=== PATIENT | male | born 1935 | race Caucasian/White ===

== ENCOUNTER 2018-11-14 09:15 | Inpatient (IN) | payer MEDICARE, OTHER, SELFPAY ==
[2017-01-12 13:56] VITALS: BMI 46.7
[2018-11-14] VITALS (12 sets, daily range): BP systolic 116–151; BP diastolic 71–105; PULSE 60–108; RESP 12–22; TEMP 36.6–37.1; O2SAT 89–100; BMI 48.8; BMI 45.8
--- NOTE | 2018-11-14 09:34 | EKG12_ITS ---
Test Reason : COUGH Blood Pressure : / mmHG Vent. Rate : 062 BPM Atrial Rate : 234 BPM P-R Int : 000 ms QRS Dur : 076 ms QT Int : 414 ms P-R-T Axes : 000 -44 -09 degrees QTc Int : 420 ms Atrial fibrillation Left axis deviation Low voltage QRS Inferior infarct , age undetermined Possible Anterolateral infarct , age undetermined Abnormal ECG Confirmed by CHING PATRICIO ([id number]), makeup editor JOVANNY PAN ([id number]) on 11/19/2018 1:30:26 PM Referred By: Mahsa Vines Confirmed By:CHING PATRICIO
--- NOTE | 2018-11-14 09:34 | RAD_ITS ---
STUDY: X-RAY CHEST REASON FOR EXAM: Male, 82 years old. History of hemoptysis. Lightheadedness. TECHNIQUE: Single AP portable view of the chest. COMPARISON: Comparison is made with prior study dated January 15, 2017. FINDINGS: EKG electrodes are seen. Elevation of the right hemidiaphragm. Mild increased markings at the lung bases suggestive of bibasilar atelectasis. There is no demonstrated pleural abnormality. There is moderate cardiac enlargement. Normal mediastinum and shaan. Normal visualized pulmonary arteries. There is atherosclerotic calcification of the aortic arch with tortuosity. There are diffuse degenerative changes of the visualized thoracic spine. Normal visualized ribs, clavicles, and shoulders. There is no demonstrated abnormality of the visualized soft tissue structures of the upper abdomen. RAD/Chest 1 View (Portable) IMPRESSION: Findings suggestive of a mild degree of bibasilar atelectasis. Moderate cardiomegaly. Electronically Signed: Joni Castro, at 10:18 EDT , Service support ,
--- NOTE | 2018-11-14 09:35 | CT_ITS ---
STUDY: CTA CHEST REASON FOR EXAM: Male, 82 years old. Hemoptysis and hypoxia. RADIATION DOSAGE (If Supplied By Facility): CTDIvol = ( 20.97 ) mGy, DLP = ( 470.10 ) mGycm TECHNIQUE: The examination was performed with the intravenous administration of 100 IV Isovue 370. Post-processing of the angiographic images was performed, with multiplanar reformation and 3D reconstruction. Individualized dose optimization techniques were used for this CT. COMPARISON: Comparison is made with prior CT scan of the thorax dated January 11, 2017. FINDINGS: Normal enhancement of the main pulmonary artery and right and left pulmonary arteries. Normal enhancement of the bilateral peripheral pulmonary arteries. There is no demonstrated pulmonary embolism. There is atherosclerotic calcification of the aortic arch with tortuosity. Tortuosity of the descending thoracic aorta. There is no demonstrated aortic dissection. There are calcifications of the coronary arteries. There is cardiomegaly. There are visualized mediastinal lymph nodes, which are within normal size limits, and with normal morphology. There are calcified left hilar lymph nodes. Normal visualized trachea and bronchi. The lungs are well expanded. Patchy infiltrates in both lower lobes worse on the right side with elevation of the right hemidiaphragm. Normal pleura. Normal chest wall structures. There are degenerative changes of thoracic spine. Normal visualized upper abdomen. CT/CTA Chest W/WO Contrast IMPRESSION: Patchy infiltrates in both lower lobes more prominent on the right lung base. Electronically Signed: Joni Castro, at 11:25 EDT , Service support ,
--- NOTE | 2018-11-14 09:37 | ED.DCSUM_ITS ---
- ER Visit Summary Date of Service: 11/14/18 Chief Complaint: Hemoptysis and hypoxia History of Present Illness: The patient is a 82 M history of prior CVA, CAD with cardiac stent, [id number]-ywykfuisc diabetes, history of DVT, COPD without O2. Patient states he was coughing and coughed up blood. Really denies much sputum. Denies URI symptoms. States he is also short of breath. 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 Believes he is on a blood thinner. Denies any fever. Physical Examination: Older male vital signs stable except pulse ox 89% room air this is been hypoxia. H EENT exam unremarkable. Neck nontender. Lungs clear to auscultation bilaterally. Heart regular rhythm rate about 80 no murmur. Chest wall nontender. Abdomen morbidly obese but nontender normal bowel sounds no peritoneal signs. Patient moving all 4 extremities. 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 Both legs are wrapped he has chronic edema. Calves are not specifically tender. Neurologically he is awake and alert. He is moving all 4 extremities. Test Results: CBC White count 8. Hemoglobin 12.8. Chemistries unremarkable creatinine and gap. Troponin normal. D-dimer elevated 1.38. EKG atrial fibrillation rate of 62 with low voltage. Chest x-ray showed chronic changes and atelectasis. CTA of the Chest showed no PE but bilateral lower lobe infiltrates right greater than left. Read by the radiologist and reviewed by me. Emergency Department Course and Treatment: Older male with hemoptysis and hypoxia concerning for PE versus other etiologies. Will undergo work-up for most likely a CTA of his chest. Currently on oxygen his pulse ox is about 95%. Treatment Plan: Start IV Rocephin and Zithromax for bilateral lower lobe pneumonia. Will be admitted. I discussed patient's care with the hospitalist. Disposition: admission Impression: Acute hemoptysis hypoxia secondary to bilateral lower lobe pneumonia Diabetes, hypertension, CAD, COPD. History of cardiac stent. Anticoagulated on Eliquis. This note was generated with [employer] dictation software. It may contain incorrect words, spelling, and punctuation that were not noted in review of the chart prior to signing ED Disposition - Plan for ED Patient: Referrals: Mario Garza MD [Primary Care Provider] -
[2018-11-14 10:12] LABS: Basophil# 0.03 X10^3/uL; Basophil% 0.4 % (0-1); Eosinophil# 0.22 X10^3/uL; Eosinophils% 2.8 % (0-5); Hematocrit 40.4 % (40-54); Hemoglobin 12.8 g/dL (13.0-16.5); Lymphocyte % 12.6 % (19-41); Mean Corp Hgb Conc 31.7 g/dL (32-36); Mean Corpuscular Hgb 27.1 pg (27.0-32.0); Mean Corpuscular Volume 85.4 fL (80-94); Mean Platelet Vol. 10.2 fl (6.2-12.0); Monocyte# 0.68 X10^3/uL; Monocyte% 8.5 % (0-10); NRBC Flagged by Analyzer 0 % (0-5); Neutrophil # 5.99 X10^3/uL (2.7-7.7); Neutrophil % 75.2 % (47-70); Platelet Count 212 K/mm3 (150-450); RBC Distribution Width CV 15.8 % (11.6-14.6); RBC Distribution Width SD 49.5 fl (35.1-43.9); Red Blood Count 4.73 M/mm3 (4.6-6.2)
[2018-11-14 10:21] LABS: International Normalized Ratio 1.7
[2018-11-14 10:26] LABS: Anion Gap 7 (5-15); BUN 21 mg/dL (7-18); BUN/Creat Ratio 21.5 RATIO (10-20); Calcium,Total 8.4 mg/dL (8.5-10.1); Chloride 105 mmol/L (98-107); Creatinine, Serum 0.98 mg/dL (0.70-1.30); EST Glomerular Filtration Rate 78 mL/min (>60); Est Glom Filt Rate - Afr Amer 95 mL/min (>60); Estimated Creatinine Clearance 60.12 ml/min; Glucose 110 mg/dL (74-106); Potassium 3.8 mmol/L (3.5-5.1); Sodium Level 142 mmol/L (136-145)
[2018-11-14 10:35] LABS: D-Dimer Quantitative (DVT/PE) 1.38 FEU/ug/m (0.27-0.49)
--- NOTE | 2018-11-14 13:32 | HP.PCM_ITS ---
History of Present Illness Date of Admission: 11/14/18 Chief Complaint: hemoptysis, shortness of breath The patient is a 82 year old M with an extensive past medical history as listed. Patient was admitted through the ED on 11/14/2018 with a complaint of hemoptysis of 1 days duration as well as persistent shortness of breath. Patient states he had coughed up blood about 4 times with one episode being quite copious. He also had a stiff shortness of breath which worsened and required starting of oxygen in his alf. He had no state fever or chills, palpitations or dizziness, abdominal pain, diarrhea vomiting. Review of systems otherwise negative. He is never has had hemoptysis before. He denies smoking cigarettes. He has no history of lung cancer in his family. He also denies any weight loss or night sweats. Review of symptoms otherwise negative. In the ED, vitals were significant for respiratory rate of 22 and was requiring 2 L of oxygen to maintain saturation above 90%. CBC was unremarkable and showed no leukocytosis and BMP was also unremarkable. Troponin was less than 0.015. Chest x-ray showed no acute cardiopulmonary process but chest CT was negative for any PE but showed bilateral lower lobe infiltrates worse in the right lung. EKG showed no acute ST changes and showed only A. fib which was read controlled. He has been admitted to be managed for acute hypoxic respiratory insufficiency due to probable community-acquired pneumonia and hemoptysis. 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) Cerebrovascular disease (Chronic) Acute ischemic stroke left prefrontal gyrus Chronic infarction right occipital lobe Severe small vessel ischemic Seizure (Chronic) Benign essential hypertension (Chronic) Allergies No Known Allergies Allergy (Verified 01/10/17 14:22) Home Medications: Ambulatory Orders Medication Instructions Recorded Multivitamins,Therapeutic 1 tablet PO DAILY 09/10/14 [Multivitamin] Calcium Citrate/Vitamin D3 2 each PO DAILY 05/11/15 [Calcium Citrate - Vit D Tablet] Ergocalciferol [Vitamin D] 50,000 unit PO Q7D 05/11/15 Magnesium Oxide [Mag-Ox 400] 400 mg PO DAILY 05/11/15 Clopidogrel Bisulfate [Plavix] 75 mg PO DAILY #30 tablet 01/13/17 Diltiazem CD [Cardizem CD] 180 mg PO DAILY #30 capsule 01/13/17 Potassium Chloride [K-Dur] 20 meq PO DAILY #30 tablet 01/13/17 Erythromycin Ophthalmic 1 applic LEFT EYE 4X/DAY 3 Days 01/19/17 Loratadine [Claritin] 5 mg PO DAILY #30 tablet 01/19/17 Oxycodone HCl [Roxicodone] 5 mg PO Q4H PRN PRN #20 01/19/17 Tamsulosin HCl [Flomax] 0.4 mg PO BID@0830,1730 #60 capsule 01/19/17 Apixaban [Eliquis] 5 mg PO DAILY 11/14/18 Atorvastatin Calcium [Lipitor] 40 mg PO QHS 11/14/18 Carvedilol [Coreg (Beta Michael)] 12.5 mg PO BID 11/14/18 Furosemide [Lasix] 80 mg PO BID@1000,1800 11/14/18 Losartan Potassium 25 mg PO DAILY 11/14/18 Surgical History: total hip arthroplasty, total knee arthroplasty, tonsillectomy, - - Back surgery Psychiatric History: No pertinent psych hx Lives: [facility] Smoking Status: Never smoker Alcohol: None Drugs: None - *Family History Maternal History Items: Diabetes Paternal History Items: Unknown Sibling History Items: Cancer, - Review of Systems Constitutional: Denies: Chills, Fever, Malaise, Weakness, Weight Change, Fatigue Eyes: Denies: Blurred vision HEENT: Denies: Head Aches, Sinus Congestion, Sinus Drainage Cardiovascular: Denies: Chest Pain, Heaviness, Palpitations Respiratory: Reports: Cough, Hemoptysis, Shortness of Breath, Shortness of breath at rest, Shortness of breath upon exertion, Sputum production. Denies: Wheezing Gastrointestinal: Denies: Abdominal Pain, Nausea, Vomiting Genitourinary: Denies: Dysuria Musculoskeletal: Denies: Joint Pain, Joint Tenderness Skin: Denies: Rash, Wounds Neurological: Denies: Numbness, Tingling, Focal weakness Psychiatric: Denies: Anxiety, Depression, Homicidal Ideations, Suicidal Ideations Hematologic/ Lymphatic: Denies: Easy Bruising, Easy Bleeding VTE Information - Inpt Only VTE Present on Admission: No VTE Mechan Device Prophylaxis: SCD's VTE Pharm Prophylaxis ordered?: Yes Reason prophylaxis not ordered:: Medical Contraindication - hemoptysis - Physical Exam General: Alert, Oriented x3, Cooperative, No apparent distress HEENT: Atraumatic, PERRLA, EOMI, Normocephalic Oral: Dry Mucosa Neck: Supple, No JVD, Negative Carotid Bruits Lungs: - - decreased breath sounds bibasally, no wheezes or crackles. on 2L of oxygen by nasal canula Cardiovascular: Normal S1, Normal S2, No murmurs, Irregular Rate Abdomen: Bowel Sounds Present, Soft, Non Tender, Non-Distended, No Hepato- splenomegaly Extremities: No clubbing, No cyanosis, Capillary Refill Less than 3 Seconds, - - LEs wrapped in SIMONA bandage; 1+ pitting pedal edema Skin: No rashes, No breakdown Musculoskeletal: No Tenderness to Palpation of Joints or Extremities Lymphatic: No Cervical, Supraclavicular, or Inguinal Adenopathy Neurological: Cranial nerves II-XII grossly intact, Neuro grossly intact, Motor Exam 5/5 strength throughout Psych/Mental Status: Normal Affect, Appropriate, Alert and oriented to time, place, person, mood and affect Vital Signs Temp Pulse Resp BP Pulse Ox 97.8 F 84 19 H 141/96 H 95 11/14/18 13:00 11/14/18 13:00 11/14/18 13:00 11/14/18 13:00 11/14/18 13:00 Oxygen Flow Rate (L/min) 2 Oxygen Delivery Method Nasal Cannula Weight: 330 lb 7.567 oz Body Mass Index (BMI) 48.8 Finger Stick Blood Glucose 180 Laboratory Tests Past 24 Hrs 11/14/18 11/14/18 11/14/18 09:51 09:51 09:51 WBC 8.0 RBC 4.73 Hgb 12.8 L Hct 40.4 MCV 85.4 MCH 27.1 MCHC 31.7 L RDW Std Deviation 49.5 H RDW Coeff of Germán 15.8 H Plt Count 212 MPV 10.2 Immature Gran % (Auto) 0.500 Neut % (Auto) 75.2 H Lymph % (Auto) 12.6 L [place] % (Auto) 8.5 Eos % (Auto) 2.8 Baso % (Auto) 0.4 Absolute Neuts (auto) 6.0 Absolute Lymphs (auto) 1.00 Nucleated RBC % 0 PT 20.0 H INR 1.7 D-Dimer Quant (PE/DVT) 1.38 H* Sodium 142 Potassium 3.8 Chloride 105 Carbon Dioxide 30.0 Anion Gap 7 BUN 21 H Creatinine 0.98 Estim Creat Clear Calc 60.12 Est GFR (MDRD) Af Amer 95 Est GFR (MDRD) Non-Af 78 BUN/Creatinine Ratio 21.5 H Glucose 110 H Calcium 8.4 L Troponin I < 0.015 Diagnostic Data Chest X-Ray 11/14/18 09:34 IMPRESSION: Findings suggestive of a mild degree of bibasilar atelectasis. Moderate cardiomegaly. Electronically Signed: Joni Castro, at 10:18 EDT , Service support , Chest CTA 11/14/18 09:35 IMPRESSION: Patchy infiltrates in both lower lobes more prominent on the right lung base. Electronically Signed: Joni Castro, at 11:25 EDT , Service support , Assessment/Plan All Active Problems Acute urinary tract infection (Acute) Acute urinary retention (Acute) Conjunctivitis (Acute) Asthma exacerbation (Acute) Abnormal nuclear stress test (Acute) Shortness of breath (Acute) Physical debility (Acute) Frequent falls (Acute) 82 y/o male admitted with a complaint of hemoptysis 1. Acute hypoxic respiratory insufficiency due to hemoptysis and probably community acquired pneumonia * admit to PCU with telemetry * has no fever or leucocytosis * Chest CTA showed bilateral patchy infiltrates in both lower lobes, more prominent on right lung base * start IV ceftriaxone and azithromycin * titrate oxygen to maintain sats>90% * incentive spirometry * breathing treatments * sputum cultures * urine for strep and Legionella antigens * blood culture * 2. Probable community acquired pneumonia: as under 1 3. Hemoptysis: * likely due to pneumonia, and also probably drug induced from eliquis. WIll hold eliquis. Monitor for hemoptysis' if it persists, will consult pulmonology 4. Afib: rate controlled. On carvedilol and cardizem. Hold eliquis o/a of hemoptysis 5. Hypertension: On losartan and carvedilol. 6. Chronic HfpEF: Lasix 80 mg twice daily. Also on carvedilol.EF per echo(2017) is 60%. Not in acute exacerbation 7.BPH: Flomax DVT prophylaxis: SCDs. Eliquis on hold on account of hemoptysis. Code Visit Inpatient E&M: 98471 Init Hosp L3
[2018-11-14] MEDS: Ceftriaxone 1 GM/50 ML BAG IV (14:07)
[2018-11-14 16:14] LABS: BNP,B-Type NATRIURETIC PEPTIDE 157.7 pg/mL (0-100)
[2018-11-14] MEDS: Furosemide 80 MG Tablet PO (17:25)
[2018-11-14] MEDS: Tamsulosin HCl 0.4 MG Capsule PO (17:25)
[2018-11-14] MEDS: Atorvastatin Calcium 40 MG Tablet PO (21:22)
[2018-11-14] MEDS: Carvedilol 12.5 MG Tablet PO (21:22)
--- NOTE | 2018-11-14 23:35 | CPS ---
Pt. unable to tolerate hospital CPAP unit. Said that noise was to loud. Explained to pt. that hospital machine is different from home unit. Tried to make pt. more comfortable with mask adjustment. Pt. still requested to come off machine. Placed on 2L NC for night.
[2018-11-15] VITALS (11 sets, daily range): BP systolic 123–161; BP diastolic 66–100; PULSE 66–90; RESP 16–18; TEMP 36.7–37; O2SAT 92–95
[2018-11-15 06:40] LABS: Absolute Lymphocyte Count 0.95 X10^3/uL (0.83-4.51); Absolute Neutrophil Count 5.2 X10^3/uL (2.0-7.7); Basophil# 0.04 X10^3/uL; Basophil% 0.6 % (0-1); Eosinophils% 2.9 % (0-5); Hematocrit 41.6 % (40-54); Hemoglobin 13.2 g/dL (13.0-16.5); Lymphocyte # 0.95 X10^3/ul (4.0); Lymphocyte % 13.6 % (19-41); Mean Corp Hgb Conc 31.7 g/dL (32-36); Mean Corpuscular Hgb 26.8 pg (27.0-32.0); Mean Corpuscular Volume 84.4 fL (80-94); Mean Platelet Vol. 9.8 fl (6.2-12.0); Monocyte# 0.61 X10^3/uL; Monocyte% 8.7 % (0-10); NRBC Flagged by Analyzer 0 % (0-5); Neutrophil # 5.15 X10^3/uL (2.7-7.7); Neutrophil % 73.8 % (47-70); Platelet Count 211 K/mm3 (150-450); RBC Distribution Width CV 15.7 % (11.6-14.6); Red Blood Count 4.93 M/mm3 (4.6-6.2)
[2018-11-15 06:52] LABS: Anion Gap 9 (5-15); BUN 19 mg/dL (7-18); BUN/Creat Ratio 19.5 RATIO (10-20); Calcium,Total 8.5 mg/dL (8.5-10.1); Chloride 104 mmol/L (98-107); Creatinine, Serum 0.97 mg/dL (0.70-1.30); EST Glomerular Filtration Rate 79 mL/min (>60); Est Glom Filt Rate - Afr Amer 95 mL/min (>60); Estimated Creatinine Clearance 60.74 ml/min; Glucose 114 mg/dL (74-106); Potassium 3.5 mmol/L (3.5-5.1); Sodium Level 142 mmol/L (136-145)
[2018-11-15] MEDS: Carvedilol 12.5 MG Tablet PO ×2 (08:41→21:13)
[2018-11-15] MEDS: Losartan Potassium 25 MG Tablet PO (08:41)
[2018-11-15] MEDS: Magnesium Oxide 400 MG Tablet PO (08:41)
[2018-11-15] MEDS: Multivitamins,Therapeutic Tablet 1 TABLET PO (08:41)
[2018-11-15] MEDS: Calcium Carb/Vitamin D 1 TABLET Tablet 2 TABLET PO (08:41)
[2018-11-15] MEDS: Furosemide 80 MG Tablet PO ×2 (08:41→18:07)
[2018-11-15] MEDS: Tamsulosin HCl 0.4 MG Capsule PO ×2 (08:41→18:07)
[2018-11-15] MEDS: Loratadine 10 MG Tablet 5 MG PO (08:41)
[2018-11-15] MEDS: dilTIAZem CD 180 MG Capsule PO (08:42)
--- NOTE | 2018-11-15 09:30 | CASEMGMT ---
KIM spoke with patient and confirmed his plans are to return to [facility]. He said that is the plan and he will need transport back via cot as they use a lift to get him into the wheelchair. KIM faxed updates to [facility]. KIM spoke with Piedad at [facility] and patient is a assisted resident. Plan: d/c back to [facility] when ready. Bhargavi RDZ MSW
[2018-11-15] MEDS: 0.9% NaCl Peripheral Flush Adult/Peds IV (10:09)
[2018-11-15] MEDS: Ceftriaxone 1 GM/50 ML BAG IV (10:09)
--- NOTE | 2018-11-15 10:37 | CASEMGMT ---
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 SW checked echart, we do have POA form on file with LW provision initialed. The form lists Delmy Lowe as POA, form completed in 2005. DRAGAN Smith
--- NOTE | 2018-11-15 11:23 | PCM.PN.HOSP ---
Subjective: Patient admitted with shortness of breath, for few days along with hemoptysis, 4 times of one day. Patient is [facility] resident. Patient has cough with minimal sputum. Patient denies history of his smoking or COPD but has asthma. Patient also has obstructive sleep apnea. Vitals/I&O's: Vital Signs Temp Pulse Resp BP Pulse Ox 98.5 F 88 16 156/100 H 95 11/15/18 08:37 11/15/18 08:37 11/15/18 08:37 11/15/18 08:37 11/15/18 08:37 Oxygen Flow Rate (L/min) 2 Oxygen Delivery Method Room Air Weight: 310 lb 10.101 oz Body Mass Index (BMI) 45.8 Finger Stick Blood Glucose 180 Intake and Output for Last 24 Hours 11/13/18 11/14/18 11/15/18 23:59 23:59 23:59 Intake Total 360 / 600 480 / 480 Output Total 300 / 1100 1125 / 1125 Balance 60 / -500 -645 / -645 General: Alert, Oriented x3, Cooperative HEENT: Atraumatic, PERRLA, EOMI, Normocephalic Neck: Supple, No JVD, Negative Carotid Bruits Lungs: No rhonchi, No wheeze, No rales, Diminished - Air entry is diminished. Cardiovascular: Regular rate, No murmurs Abdomen: Bowel Sounds Present, Soft, Non Tender, Non-Distended Extremities: Capillary Refill Less than 3 Seconds, Edema - Bilateral lower extremity dependent edema. On dependent chills, venous congestion with erythema. No cellulitis Skin: No rashes, No breakdown Musculoskeletal: No Tenderness to Palpation of Joints or Extremities, Arthritic Changes Neurological: Cranial nerves II-XII grossly intact Psych/Mental Status: Normal Affect, Appropriate Microbiology Past 72 Hours 11/14/18 21:25 Urine, Clean Catch Streptococcus pneumoniae Antigen (M - Final 11/14/18 21:25 Urine, Clean Catch Legionella Antigen - Final Laboratory Results 11/14/18 09:51: B-Natriuretic Peptide 157.7 H 11/15/18 06:15: WBC 7.0, RBC 4.93, Hgb 13.2, Hct 41.6, MCV 84.4, MCH 26.8 L, MCHC 31.7 L, RDW Std Deviation 48.0 H, RDW Coeff of Germán 15.7 H, Plt Count 211, MPV 9.8, Immature Gran % (Auto) 0.400, Neut % (Auto) 73.8 H, Lymph % (Auto) 13.6 L, [place] % (Auto) 8.7, Eos % (Auto) 2.9, Baso % (Auto) 0.6, Absolute Neuts (auto) 5.2, Absolute Lymphs (auto) 0.95, Nucleated RBC % 0 11/15/18 06:15: Sodium 142, Potassium 3.5, Chloride 104, Carbon Dioxide 29.0, Anion Gap 9, BUN 19 H, Creatinine 0.97, Estim Creat Clear Calc 60.74, Est GFR (MDRD) Af Amer 95, Est GFR (MDRD) Non-Af 79, BUN/Creatinine Ratio 19.5, Glucose 114 H, Calcium 8.5 Current Medications Atorvastatin Calcium (Lipitor) 40 mg PO QHS [facility] Last Admin: 11/14/18 21:22 Dose: 40 mg Documented by: Calcium/Vitamin D (Os-Link 500mg + D) 2 tablet PO DAILYCM [facility] Last Admin: 11/15/18 08:41 Dose: 2 tablet Documented by: Carvedilol (Coreg) 12.5 mg PO BID [facility] Last Admin: 11/15/18 08:41 Dose: 12.5 mg Documented by: Dextrose (D50w Syringe) 0 gm IV X1 PRN; Protocol PRN Reason: Hypoglycemia Diltiazem HCl (Cardizem Cd) 180 mg PO DAILY [facility] Last Admin: 11/15/18 08:42 Dose: 180 mg Documented by: Ergocalciferol (Vitamin D) 50,000 unit PO Q7D [facility] Furosemide (Lasix) 80 mg PO BID@1000,1800 [facility] Last Admin: 11/15/18 08:41 Dose: 80 mg Documented by: Glucagon () 1 mg IM .X1 PRN PRN Reason: Hypoglycemia Azithromycin 500 mg/ Dextrose 255 mls @ 250 mls/hr IV Q24 [facility] Last Admin: 11/15/18 10:46 Dose: 250 mls/hr Documented by: Ceftriaxone Sodium (Rocephin) 1 gm in 50 mls @ 100 mls/hr IV Q24 [facility] Last Admin: 11/15/18 10:09 Dose: 100 mls/hr Documented by: Sodium Chloride () 250 mls @ 15 mls/hr IV .[id number] PRN PRN Reason: SALINE FLUSH Loratadine (Claritin) 5 mg PO DAILY [facility] Last Admin: 11/15/18 08:41 Dose: 5 mg Documented by: Losartan Potassium (Cozaar) 25 mg PO DAILY [facility] Last Admin: 11/15/18 08:41 Dose: 25 mg Documented by: Magnesium Oxide (Mag-Ox 400) 400 mg PO DAILY [facility] Last Admin: 11/15/18 08:41 Dose: 400 mg Documented by: Multivitamins (Multivitamin) [facility] Last Admin: 11/15/18 08:41 Dose: 1 tablet Documented by: Oxycodone HCl (Oxyir) 5 mg PO Q4H PRN PRN PRN Reason: PAIN Potassium Chloride (K-Dur) 20 meq [facility] Last Admin: 11/15/18 08:41 Dose: 20 meq Documented by: Sodium Chloride () 10 - 40 ml IV UD PRN PRN Reason: SALINE FLUSH Last Admin: 11/15/18 10:09 Dose: 10 ml Documented by: Tamsulosin HCl (Flomax) 0.4 mg PO BID@0830,1730 [facility] Last Admin: 11/15/18 08:41 Dose: 0.4 mg Documented by: Medical Necessity - Tobacco Use Smoking Status: Never smoker Tobacco Use: Non-smoker Assessment/Plan All Active Problems Acute urinary tract infection (Acute) Acute urinary retention (Acute) Conjunctivitis (Acute) Asthma exacerbation (Acute) Abnormal nuclear stress test (Acute) Shortness of breath (Acute) Physical debility (Acute) Frequent falls (Acute) 82 y/o male admitted with a complaint of hemoptysis of one day along with worsening of shortness of breath and 89% on room air 1. Acute hypoxic respiratory insufficiency due to hemoptysis and probably community acquired pneumonia both lower lobes, worse on right lower lobe Patient is admitted in PCU. Chest CT reviewed. It shows patchy infiltrate in both lower lobes more on right lower lobe. On IV ceftriaxone and azithromycin. Patient reports subjective improvement in shortness of breath. Urinary antigens are negative. Sputum culture ordered. Blood cultures are pending. Continue DuoNeb, incentive spirometry and chest physiotherapy. 2. Probable community acquired pneumonia 3. Hemoptysis: likely due to pneumonia, and also probably drug induced from eliquis. WIll hold eliquis. Hemoptysis has resolved. Did not happen after admission. 4. Afib: rate controlled. On carvedilol and cardizem. Hold eliquis o/a of hemoptysis 5. Hypertension: On losartan and carvedilol. 6. Chronic HfpEF: Lasix 80 mg twice daily. Also on carvedilol.EF per echo(2017) is 60%. Not in acute exacerbation. BNP is 157 not impressive. Has chronic bilateral lower extremity edema with venous stasis. As per patient it has not changed in the last 2 to 3 months. 7.BPH: Flomax DVT prophylaxis: SCDs. Eliquis on hold on account of hemoptysis. Microbiology Past 72 Hours 11/14/18 21:25 Urine, Clean Catch Streptococcus pneumoniae Antigen (M - Final 11/14/18 21:25 Urine, Clean Catch Legionella Antigen - Final Laboratory Results 11/14/18 09:51: B-Natriuretic Peptide 157.7 H 11/15/18 06:15: WBC 7.0, RBC 4.93, Hgb 13.2, Hct 41.6, MCV 84.4, MCH 26.8 L, MCHC 31.7 L, RDW Std Deviation 48.0 H, RDW Coeff of Germán 15.7 H, Plt Count 211, MPV 9.8, Immature Gran % (Auto) 0.400, Neut % (Auto) 73.8 H, Lymph % (Auto) 13.6 L, [place] % (Auto) 8.7, Eos % (Auto) 2.9, Baso % (Auto) 0.6, Absolute Neuts (auto) 5.2, Absolute Lymphs (auto) 0.95, Nucleated RBC % 0 11/15/18 06:15: Sodium 142, Potassium 3.5, Chloride 104, Carbon Dioxide 29.0, Anion Gap 9, BUN 19 H, Creatinine 0.97, Estim Creat Clear Calc 60.74, Est GFR (MDRD) Af Amer 95, Est GFR (MDRD) Non-Af 79, BUN/Creatinine Ratio 19.5, Glucose 114 H, Calcium 8.5 Clinical Impression(s) from Imaging Studies Chest X-Ray 11/14/18 09:34 IMPRESSION: Findings suggestive of a mild degree of bibasilar atelectasis. Moderate cardiomegaly. Chest CTA 11/14/18 09:35 IMPRESSION: Patchy infiltrates in both lower lobes more prominent on the right lung base. Code Visit Inpatient E&M: 16227 Subs Hosp L3
[2018-11-15] MEDS: oxyCODONE 5 MG Tablet PO ×2 (13:46→21:13)
--- NOTE | 2018-11-15 14:15 | CHAPLAIN ---
Type of Pastoral Visit _x__ Initial Visit ___ Follow-up Visit ___ On-call Visit ___ General Patient Visit ___ Spiritual Assessment ___ Family Conference ___ Bereavement ___ Rapid Response ___ Code Blue ___ Other (describe below) Pastoral Care Referral From _x__ Patient ___ Family ___ Nurse ___ Physician ___ Stock Fitter ___ Rail Car Repairman ___ Other (describe below) Sacrament/Intervention _x__ Active listening ___ Anointing ___ Caodaism ___ Bereavement ___ Communion ___ Yamile exploration ___ ___ Life review _x__ Prayer ___ Reconciliation ___ Sacrament of Sick _x__ Supportive presence ___ Wedding ___ Other (describe below) Pastoral Comments
[2018-11-15] MEDS: Atorvastatin Calcium 40 MG Tablet PO (21:13)
[2018-11-15] MEDS: Senna/Docusate Sodium 1 Tablet 2 TABLET PO (21:17)
--- NOTE | 2018-11-15 21:20 | NURSING ---
PATIENT REFUSING TO WEAR CPAP TONIGHT. SATTING 90% ON RA. THIS RN PLACED ON 3L NC, NOW SATTING 93%
[2018-11-16 03:01] VITALS: PULSE 79
[2018-11-16 03:10] VITALS: BP 137/90; PULSE 67; RESP 16; TEMP 37; O2SAT 94
[2018-11-16 07:08] VITALS: O2SAT 93
[2018-11-16 07:14] LABS: Anion Gap 5 (5-15); BUN 22 mg/dL (7-18); BUN/Creat Ratio 19.6 RATIO (10-20); Calcium,Total 8.8 mg/dL (8.5-10.1); Chloride 101 mmol/L (98-107); Creatinine, Serum 1.12 mg/dL (0.70-1.30); EST Glomerular Filtration Rate 67 mL/min (>60); Est Glom Filt Rate - Afr Amer 81 mL/min (>60); Glucose 114 mg/dL (74-106); Potassium 3.6 mmol/L (3.5-5.1); Sodium Level 139 mmol/L (136-145)
[2018-11-16] MEDS: Tamsulosin HCl 0.4 MG Capsule PO (08:20)
[2018-11-16] MEDS: Calcium Carb/Vitamin D 1 TABLET Tablet 2 TABLET PO (08:20)
[2018-11-16] MEDS: Multivitamins,Therapeutic Tablet 1 TABLET PO (08:21)
[2018-11-16 09:10] VITALS: BP 140/101; PULSE 75; RESP 18; TEMP 36.9; O2SAT 93
[2018-11-16] MEDS: 0.9% NaCl Peripheral Flush Adult/Peds IV (09:42)
[2018-11-16] MEDS: Ceftriaxone 1 GM/50 ML BAG IV (09:43)
[2018-11-16] MEDS: Azithromycin 250 MG Tablet 500 MG PO (09:46)
[2018-11-16] MEDS: dilTIAZem CD 180 MG Capsule PO (09:47)
[2018-11-16] MEDS: Carvedilol 12.5 MG Tablet PO (09:47)
[2018-11-16] MEDS: Magnesium Oxide 400 MG Tablet PO (09:47)
[2018-11-16] MEDS: Furosemide 80 MG Tablet PO (09:47)
[2018-11-16] MEDS: Loratadine 10 MG Tablet 5 MG PO (09:47)
[2018-11-16] MEDS: Losartan Potassium 25 MG Tablet PO (09:47)
[2018-11-16] MEDS: Senna/Docusate Sodium 1 Tablet 2 TABLET PO (09:51)
--- NOTE | 2018-11-16 11:26 | TREXTCAR_ITS ---
- Diet 11/14/18 15:23 Diet: Cardiac/Low Cholesterol Food consistency:: Regular Liquid Consistency:: Regular/Thin - Routine Orders/Code Status Suppository Type: Dulcolax 10mg Suppository Frequency: Daily PRN Routine Lab Work: BMP - every week as on high dose of diuretic Code [facility] - Wound(s) LEFT 2ND TOE Wound Type: Neuropathic/Diabetic Foot Ulcer L [place] Wound Type: Stasis Ulcer - Therapies Physical Therapy: Eval and Treat Occupational Therapy: Eval and Treat Speech Therapy: Eval and Treat - Allergies/Procedures Done in Hospital Allergies/Adverse Reactions: Allergies No Known Allergies Allergy (Verified 01/10/17 14:22) - Type of Care/Length of Stay Estimated LOS: Convalescent Care Less Than 30 days Type of Care Needed: Skilled Rehab Potential: Good Prognosis: Good - Additional Orders/Day of Discharge Day of Discharge: 11/16/18 - Follow Up Care Primary Care Physician: Mario Garza MD [Primary Care Provider] - Please follow up with your Primary Care Physician in: in 2 weeks Please Follow Up With: Mayank Root MD When: in 3-4 weeks for COPD
[2018-11-16 11:43] VITALS: PULSE 59; RESP 18; O2SAT 94
[2018-11-16] MEDS: Ipratropium/Albuterol Sulfate 3 ML AMPUL.NEB INHALATION (11:43)
--- NOTE | 2018-11-16 12:28 | DS.PCM_ITS ---
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 WE CAN DO DRSG CHANGES. Operations: None Summary of Care Provided: [] 82 y/o male admitted with a complaint of hemoptysis of one day along with worsening of shortness of breath and 89% on room air 1. Acute hypoxic respiratory insufficiency due to hemoptysis and probably community acquired pneumonia both lower lobes, worse on right lower lobe Patient is admitted in PCU. Chest CT reviewed. It shows patchy infiltrate in both lower lobes more on right lower lobe. On IV ceftriaxone and azithromycin. Patient reports subjective improvement in shortness of breath. Urinary antigens are negative. Sputum culture ordered. Blood cultures are pending. Continue DuoNeb, incentive spirometry and chest physiotherapy. Sputum culture is growing staph aureus 1+. Follow-up sputum culture. Patient responded well with ceftriaxone and Zithromax and discharged on Levaquin for 5 more days. 2. Right lower lobe community acquired pneumonia most probably staph aureus: As mentioned above. 3. Hemoptysis: * likely due to pneumonia, and also probably drug induced from eliquis. WIll hold eliquis. Hemoptysis has resolved. Did not happen after admission. 4. Afib: rate controlled. On carvedilol and cardizem. Hold eliquis o/a of hemoptysis 5. Hypertension: On losartan and carvedilol. 6. Chronic HfpEF: Lasix 80 mg twice daily. Also on carvedilol.EF per echo(2017) is 60%. Not in acute exacerbation. BNP is 157 not impressive. Has chronic bilateral lower extremity edema with venous stasis. As per patient it has not changed in the last 2 to 3 months. 7.BPH: Flomax. DVT prophylaxis: SCDs. Eliquis on hold on account of hemoptysis. Discharge medication reconciliation done. Discharge follow-up instructions completed. Discharge process discussed with the patient and all questions were answered to patient's satisfaction. Follow-up sputum culture for staph aureus. If it comes MRSA will need to transition to Bactrim DS or doxycycline. Total time spent, exact 35 minutes on discharge meds reconciliation, examination, review of imaging and blood test and discussion with the patient on follow-up instructions. Subjective: Seen and examined. Patient does not have fever or chills. Heart rate and blood pressure is controlled. Patient on 1 to 2 L of oxygen. Patient has mild shortness of breath probably related to deconditioning along with pneumonia and sleep apnea - Physical Exam General: Alert, Oriented x3, Cooperative HEENT: Atraumatic, PERRLA, EOMI, Normocephalic Neck: Supple, No JVD, Negative Carotid Bruits Lungs: No rhonchi, No wheeze, No rales, Diminished - Air entry is diminished on both lung bases, right more than left Cardiovascular: Regular rate, Regular Rhythm, Normal S1, Normal S2, No murmurs Abdomen: Bowel Sounds Present, Soft, Non Tender, Non-Distended Extremities: Capillary Refill Less than 3 Seconds, Edema - Anant wrap bandage on Skin: No rashes, No breakdown Musculoskeletal: No Tenderness to Palpation of Joints or Extremities, Arthritic Changes Neurological: Cranial nerves II-XII grossly intact, Deep Tendon Reflexes 2+/4 and Symmetrical, Neuro grossly intact Psych/Mental Status: Normal Affect, Appropriate Vital Signs Temp Pulse Resp BP Pulse Ox 98.5 F 59 L 18 140/101 H 94 11/16/18 09:10 11/16/18 11:43 11/16/18 11:43 11/16/18 09:10 11/16/18 11:43 Oxygen Flow Rate (L/min) 2 Oxygen Delivery Method Nasal Cannula Weight: 310 lb 10.101 oz Body Mass Index (BMI) 45.8 Finger Stick Blood Glucose 180 Intake and Output for Last 24 Hours 11/14/18 11/15/18 11/16/18 23:59 23:59 23:59 Intake Total 360 / 600 2679 / 2679 60 / 60 Output Total 300 / 1100 1999 / 1999 650 / 650 Balance 60 / -500 679 / 679 -590 / -590 Microbiology Past 72 Hours 11/14/18 21:25 Streptococcus pneumoniae Antigen (M - Final Urine, Clean Catch 11/14/18 21:25 Legionella Antigen - Final Urine, Clean Catch Laboratory Tests Past 24 Hrs 11/16/18 06:15 Sodium 139 Potassium 3.6 Chloride 101 Carbon Dioxide 33.0 H Anion Gap 5 BUN 22 H Creatinine 1.12 Estim Creat Clear Calc 52.60 Est GFR (MDRD) Af Amer 81 Est GFR (MDRD) Non-Af 67 BUN/Creatinine Ratio 19.6 Glucose 114 H Calcium 8.8 Magnesium 2.0 Home Medications: Medications to take at Discharge Multivitamins,Therapeutic [Multivitamin] 1 tablet PO DAILY 09/10/14 Calcium Citrate/Vitamin D3 [Calcium Citrate - Vit D Tablet] 2 each PO DAILY 05/11/15 Ergocalciferol [Vitamin D] 50,000 unit PO WE 05/11/15 Magnesium Oxide [Mag-Ox 400] 400 mg PO DAILY 05/11/15 Clopidogrel Bisulfate [Plavix] 75 mg PO DAILY #30 tablet 01/13/17 Diltiazem CD [Cardizem CD] 180 mg PO DAILY #30 capsule 01/13/17 Acetaminophen [Tylenol] 650 mg PO BID 11/14/18 Apixaban [Eliquis] 5 mg PO DAILY 11/14/18 Atorvastatin Calcium [Lipitor] 40 mg PO QHS 11/14/18 Cod Liver Oil 1 ea PO DAILY 11/14/18 Docusate Sodium [Colace] 100 mg PO DAILY 11/14/18 Fluticasone 110 Mcg [Flovent 110 Mcg] 2 puff INHALATION BID 11/14/18 Furosemide [Lasix] 80 mg PO BID 11/14/18 Losartan Potassium 25 mg PO DAILY 11/14/18 Oxycodone HCl 5 mg PO Q4H PRN PRN 11/14/18 Oxycodone HCl [Roxicodone] 5 mg PO QHS 11/14/18 Potassium Chloride [K-Dur] 40 meq PO BID 11/14/18 Tamsulosin HCl [Flomax] 0.4 mg PO BID 11/14/18 Carvedilol 12.5 mg PO BID #0 11/16/18 Ipratropium/Albuterol Sulfate [Duoneb] 3 ml INHALATION Q4H PRN PRN ampul.neb 11/16/18 Levofloxacin [Levaquin] 500 mg PO DAILY #5 tab 11/16/18 Following Prescrptions Were Given to Patient: Levofloxacin [Levaquin] 500 mg PO DAILY #5 tab Prescription Printed Primary Care Physician: Mario Garza MD [Primary Care Provider] - Please follow up with your Primary Care Physician in: in 2 weeks Please Follow Up With: Mayank Root MD When: in 3-4 weeks for COPD Medical Necessity - Tobacco Use Smoking Status: Never smoker Tobacco Use: Non-smoker Meaningful Use Info Meaningful Use Diagnoses (Choose all that apply): None applicable Code Visit Inpatient E&M: 24442 Disch Hosp
--- NOTE | 2018-11-16 12:59 | CASEMGMT ---
Pt is ready for discharge back to [facility] today. KIM faxed all discharge information to [facility]. SW spoke w/pt and daughter in room. SW let pt know the physician discharged him back to [facility] today. Pt agreeable, he prefers [facility]) for transport. KIM called [facility], set up 2pm ambulance. KIM let pt's daughter in room(pt is asleep), pt's RN and Piedad at [facility] know the time. No further needs anticipated, pt returning to [facility] today. DRAGAN Smith
[2018-11-16 14:01] VITALS: BP 138/69; PULSE 84; RESP 18; TEMP 37; O2SAT 92
== END 2018-11-16 11:45 | disposition skilled nursing facility (03) | DRG 178 ==
LOC: ED 10:00 → PCU 14:15
PROVIDERS: Admitting Provider Student in an Organized Health Care Education/Training Program; Emergency Provider Emergency Medicine; Family Provider Family Medicine; PCP Family Medicine; Referring Provider Student in an Organized Health Care Education/Training Program; Visit Provider Internal Medicine
DX: J15.212 Pneumonia due to Methicillin resistant Staphylococcus aureus (principal); I50.32 Chronic diastolic (congestive) heart failure; R04.2 Hemoptysis; Z68.42 Body mass index [BMI] 45.0-49.9, adult; I13.0 Hypertensive heart and chronic kidney disease with heart failure and stage 1 through stage 4 chronic kidney disease, or unspecified chronic kidney disease; N40.0 Benign prostatic hyperplasia without lower urinary tract symptoms; Z66 Do not resuscitate; R09.02 Hypoxemia; R06.89 Other abnormalities of breathing; G47.33 Obstructive sleep apnea (adult) (pediatric); E66.9 Obesity, unspecified; K21.9 Gastro-esophageal reflux disease without esophagitis; N18.2 Chronic kidney disease, stage 2 (mild)
CPT/HCPCS: 36415; 71045; 71275; 80048; 83735; 83880; 84484; 85025; 85379; 85610; 87040; 87070; 87077; 87186; 87205; 87449; 93005; 94640; 94660; 94667; 97162; 97166; 99285; J7040; Q9967; A4216

== ENCOUNTER → 2019-03-20 08:09 | Outpatient (CLI) | payer MEDICARE, OTHER, SELFPAY ==
[2017-01-12 13:56] VITALS: BMI 46.7
[2019-01-31 06:02] VITALS: BMI 45.8
--- NOTE | 2019-03-20 08:47 | CPS ---
Patient unable to transfer from his wheelchair into the plethysmography box. Nitrogen washout attempted without being able to obtain an accurate study. Before and After Spirometry and DLCO performed with acceptable and reproducible results. Patient provided great effort.
--- NOTE | 2019-03-20 17:19 | PFTCOMP_ITS ---
COMPLETE PULMONARY FUNCTION TEST INTERPRETATION Brief HPI: Patient is an 83 year old male, currently under the care of myself, who presents to [facility] for complete pulmonary function tests secondary to diagnosis of dyspnea. Respiratory therapist reports good effort and reproducible results. Interpretation: Forced expiration spirometry shows a moderately severe large airways obstructive ventilatory defect with an FEV1 of 54% predicted. There is no significant bronchodilator response by strict ATS criteria. Spirograms are of good quality and plateau slowly, indicating slowly emptying areas of the lungs. The respiratory flow volume loop shows decreased expiratory flow rates at all lung volumes consistent with airway obstruction. Lung volumes by nitrogen washout show a normal total lung capacity at 7.09 L, 116% predicted. FRC and RV are elevated out of proportion. Lung volume measurements are consistent with air-trapping. Diffusion capacity by carbon monoxide is decreased at 45% predicted. The airway resistance was not completed. No previous pulmonary function tests were available for review. Impression: Irreversible moderately severe obstructive ventilatory defect with a symmetric reduction diffusing capacity.
== END ==
PROVIDERS: Family Provider Family Medicine; PCP Family Medicine; Referring Provider Internal Medicine Critical Care Medicine; Visit Provider Internal Medicine Critical Care Medicine
DX: R06.00 Dyspnea, unspecified (principal); G47.33 Obstructive sleep apnea (adult) (pediatric)
CPT/HCPCS: 94060; 94729; 94762

== ENCOUNTER 2019-08-16 19:53 | Emergency (ER) | payer MEDICARE, OTHER, SELFPAY ==
[2017-01-12 13:56] VITALS: BMI 46.7
[2019-05-23 06:21] VITALS: BMI 45.8
[2019-08-16 19:53] VITALS: BP 114/77; PULSE 72; RESP 20; TEMP 36.7; O2SAT 94; BMI 48.3
--- NOTE | 2019-08-16 20:19 | ED.DCSUM_ITS ---
- ER Visit Summary Date of Service: 08/16/19 Chief Complaint: Fall at prison yesterday with reported distal femur fracture History of Present Illness: The patient is a 83 M history of bilateral hip surgery, right knee replacement, prior stroke, COPD, diabetes and hypertension. Patient is on Plavix. He was in some type of a lift device yesterday as he was getting out of bed and he went down to the floor striking his right knee and leg. He had continued pain that got x-ray on reportedly today and he has reportedly a distal femur fracture. He denies hitting his head. He denies any LOC. He denies any illness prior to the fall. Physical Examination: Elderly male no acute distress vital signs are stable on oxygen is 94%. He does not look septic or toxic. H EENT exam atraumatic. Moist with membranes. Neck nontender. Lungs clear to auscultation. Heart regular rhythm no murmur rate about 70. Chest wall nontender. Abdomen soft nontender. Pelvic girdle intact. Both lower extremities are edematous from the knees down. They were wrapped and we have unwrapped them. He does have tenderness to his distal thigh and femur area above the knee. There is no gross bony deformity. Neurologically is awake and alert. He is answering questions and following commands. He is giving his own history. Test Results: Right femur x-ray shows a distal nondisplaced femur fracture. He has a prosthetic right hip and right knee. 3 views read by myself and the radiologist. Right knee x-ray 2 views shows a distal nondisplaced femur fracture with a prosthetic knee. Again read by myself and the radiologist. CBC white count 7. Hemoglobin 11. Hematocrit 38. Chemistries BUN of 31 creatinine 1.1. Gap of 7 PT/INR unremarkable. Emergency Department Course and Treatment: Older male from a prison rep ortedly fell and reportedly has a distal femur fracture. X-rays were not with him and I will do a right femur film plus screening labs. Will be given 1 [place] for pain prior to discharge. I discussed with the orthopedic physician on-call Dr. Iska Lowe. Patient is non-ambulatory normally. He wants me to place the patient in a knee immobilizer. They will see him in follow-up. I discussed this with the patient is comfortable with the plan. He states he normally does not walk at the prison. Treatment Plan: [place] for pain. Follow-up with Dr. Isak Lowe of orthopedics. Disposition: Admission Impression: Acute fall Acute right distal femur fracture disease nondisplaced) History of COPD, diabetes and hypertension This note was generated with Pre[employer] dictation software. It may contain incorrect words, spelling, and punctuation that were not noted in review of the chart prior to signing ED Disposition - Plan for ED Patient: Disposition: Home or Assisted Living Referrals: Isak Lowe MD [STAFF PHYSICIAN] - 5-7 Days Additional Instructions: Patient has a nondisplaced fracture of his right distal femur. I discussed this with orthopedic physician on-call Dr. Isak Lowe of [facility]. Patient to be placed in a knee immobilizer. Follow-up with their office next week for further evaluation. Patient can have pain medications as needed. Nonweightbearing at this time on the right leg.
[2019-08-16 20:34] LABS: Absolute Lymphocyte Count 1.16 X10^3/uL (0.83-4.51); Basophil# 0.04 X10^3/uL; Basophil% 0.5 % (0-1); Eosinophil# 0.36 X10^3/uL; Eosinophils% 4.9 % (0-5); Hemoglobin 11.9 g/dL (13.0-16.5); Lymphocyte # 1.16 X10^3/ul (4.0); Lymphocyte % 15.9 % (19-41); Mean Corp Hgb Conc 31.3 g/dL (32-36); Mean Corpuscular Hgb 27.1 pg (27.0-32.0); Mean Corpuscular Volume 86.6 fL (80-94); Mean Platelet Vol. 9.8 fl (6.2-12.0); Monocyte# 0.69 X10^3/uL; Monocyte% 9.4 % (0-10); NRBC Flagged by Analyzer 0 % (0-5); Neutrophil # 5.03 X10^3/uL (2.7-7.7); Neutrophil % 68.9 % (47-70); Platelet Count 201 K/mm3 (150-450); RBC Distribution Width CV 14.3 % (11.6-14.6); Red Blood Count 4.39 M/mm3 (4.6-6.2); White Blood Count 7.3 K/mm3 (4.4-11.0)
[2019-08-16 20:42] LABS: International Normalized Ratio 1.3; Prothrombin Time (Protime)PT. 15.9 SECONDS (11.7-14.9)
--- NOTE | 2019-08-16 20:45 | RAD_ITS ---
STUDY: X-RAY - RIGHT FEMUR REASON FOR STUDY: Male, 83 years old. FALL WITH DISTAL PAIN TECHNIQUE: AP and lateral view(s) of the femur. COMPARISON: 09/10/2014 FINDINGS: There is a total right hip prosthesis. There is significant generalized osseous. There is a nondisplaced fracture through the distal diaphysis and metaphysis of the femur superior to the total knee prosthesis. There is adjacent soft tissue hematoma. The entire knee was not included on the [id number].. RAD/Femur Min 2 Views IMPRESSION: Generalized osteopenia Acute nondisplaced fracture through the distal diaphysis and metaphysis of the femur superior to the total knee prosthesis Total right hip prosthesis Soft tissue hematoma adjacent to the distal femoral fracture Right knee radiograph follow-up is recommended Electronically Signed: Austin Camarena, at 21:16 EDT Tel , Service support ,
[2019-08-16 20:46] LABS: Anion Gap 7 (5-15); BUN 31 mg/dL (7-18); BUN/Creat Ratio 27.2 RATIO (10-20); Calcium,Total 8.6 mg/dL (8.5-10.1); Chloride 100 mmol/L (98-107); Creatinine, Serum 1.14 mg/dL (0.70-1.30); EST Glomerular Filtration Rate 65 mL/min (>60); Est Glom Filt Rate - Afr Amer 79 mL/min (>60); Estimated Creatinine Clearance 52.47 ml/min; Glucose 168 mg/dL (74-106); Potassium 3.9 mmol/L (3.5-5.1); Sodium Level 140 mmol/L (136-145)
--- NOTE | 2019-08-16 21:20 | RAD_ITS ---
STUDY: X-RAY - RIGHT KNEE REASON FOR EXAM: Male, 83 years old. FALL. PAIN DISTAL FEMUR TECHNIQUE: AP and lateral view(s) of the knee. COMPARISON: Radiographs right femur same day. And radiograph of the 05/12/2015 FINDINGS: There is generalized osteopenia. There is an acute linear fracture through the distal diaphysis and metaphysis of the femur. There is a total knee prosthesis. There is soft tissue hematoma. There is a small suprapatellar effusion.. There are no fractures of the fibula or proximal tibia RAD/Knee 1 or 2 Views IMPRESSION: acute linear fracture through the distal diaphysis and metaphysis of the femur. Generalized osteopenia Total knee prosthesis soft tissue hematoma Small suprapatellar effusion Electronically Signed: Austin Camarena, at 21:39 EDT Tel , Service support ,
[2019-08-16 22:00] VITALS: RESP 22; O2SAT 94
--- NOTE | 2019-08-16 22:37 | ED.DEP ---
ED Disposition - Plan for ED Patient: Disposition: Home or Assisted Living Referrals: Isak Lowe MD [STAFF PHYSICIAN] - 5-7 Days Additional Instructions: Patient has a nondisplaced fracture of his right distal femur. I discussed this with orthopedic physician on-call Dr. Isak Lowe of [facility]. Patient to be placed in a knee immobilizer. Follow-up with their office next week for further evaluation. Patient can have pain medications as needed. Nonweightbearing at this time on the right leg.
[2019-08-16] MEDS: HYDROcodone Bitartrate/Apap 5/325 Tablet PO (22:46)
[2019-08-17 00:02] VITALS: BP 124/87; PULSE 70; RESP 22; O2SAT 94
== END 2019-08-17 00:02 | disposition skilled nursing facility (03) ==
PROVIDERS: Emergency Provider Emergency Medicine; PCP Family Medicine
DX: S72.401A Unspecified fracture of lower end of right femur, initial encounter for closed fracture (principal); W19.XXXA Unspecified fall, initial encounter; Y93.89 Activity, other specified; Y92.129 Unspecified place in nursing home as the place of occurrence of the external cause; Z86.73 Personal history of transient ischemic attack (TIA), and cerebral infarction without residual deficits; J44.9 Chronic obstructive pulmonary disease, unspecified; E11.9 Type 2 diabetes mellitus without complications; I10 Essential (primary) hypertension; Z96.651 Presence of right artificial knee joint; Z96.641 Presence of right artificial hip joint; Z79.02 Long term (current) use of antithrombotics/antiplatelets
CPT/HCPCS: 73552; 73560; 80048; 85025; 85610; 99285; J7030; A4216

== ENCOUNTER 2019-08-18 11:19 | Inpatient (IN) | payer MEDICARE, OTHER, SELFPAY ==
[2017-01-12 13:56] VITALS: BMI 46.7
[2019-08-18] VITALS (12 sets, daily range): BP systolic 114–135; BP diastolic 69–99; PULSE 69–103; RESP 16–20; TEMP 36.1–36.7; O2SAT 93–96; BMI 46.7; BMI 46.6
--- NOTE | 2019-08-18 11:26 | EKG12_ITS ---
Test Reason : SOB Blood Pressure : / mmHG Vent. Rate : 089 BPM Atrial Rate : 091 BPM P-R Int : 000 ms QRS Dur : 080 ms QT Int : 376 ms P-R-T Axes : 000 -02 -14 degrees QTc Int : 457 ms Atrial fibrillation with premature ventricular or aberrantly conducted complexes Low voltage QRS Inferior infarct , age undetermined Possible Anterolateral infarct , age undetermined Abnormal ECG Confirmed by WALI AYALA, JULIA ([id number]), newspaper editor managing JOVANNY PAN ([id number]) on 08/19/2019 3:08:33 PM Referred By: JOJO Confirmed By:JULIA KEYES MD
--- NOTE | 2019-08-18 11:27 | RAD_ITS ---
STUDY: X-RAY CHEST REASON FOR EXAM: Male, 83 years old. SOB TECHNIQUE: Frontal view COMPARISON: November 14, 2018 FINDINGS: The lungs are not fully expanded. Mild basilar atelectasis. Normal size heart. Normal mediastinum and shaan. Normal visualized pulmonary arteries. Normal visualized aortic arch and descending thoracic aorta. Normal visualized thoracic spine. Normal visualized ribs, clavicles, and shoulders. There is no demonstrated abnormality of the visualized soft tissue structures of the upper abdomen. RAD/Chest 1 View (Portable) IMPRESSION: Basilar atelectasis. Electronically Signed: Vivek Garland DO at 12:55 EDT Tel [phone], Service support ,
[2019-08-18 11:45] LABS: Absolute Lymphocyte Count 1.16 X10^3/uL (0.83-4.51); Absolute Neutrophil Count 5.3 X10^3/uL (2.0-7.7); Basophil# 0.05 X10^3/uL; Basophil% 0.7 % (0-1); Eosinophil# 0.39 X10^3/uL; Eosinophils% 5.1 % (0-5); Hematocrit 34.1 % (40-54); Hemoglobin 10.8 g/dL (13.0-16.5); Lymphocyte # 1.16 X10^3/ul (4.0); Lymphocyte % 15.1 % (19-41); Mean Corp Hgb Conc 31.7 g/dL (32-36); Mean Corpuscular Hgb 27.6 pg (27.0-32.0); Monocyte# 0.73 X10^3/uL; Monocyte% 9.5 % (0-10); NRBC Flagged by Analyzer 0 % (0-5); Neutrophil # 5.31 X10^3/uL (2.7-7.7); Neutrophil % 68.9 % (47-70); Platelet Count 207 K/mm3 (150-450); RBC Distribution Width CV 14.6 % (11.6-14.6); Red Blood Count 3.92 M/mm3 (4.6-6.2); White Blood Count 7.7 K/mm3 (4.4-11.0)
--- NOTE | 2019-08-18 11:48 | CT_ITS ---
STUDY: CTA CHEST REASON FOR EXAM: Male, 83 years old. SOB RADIATION DOSAGE (If Supplied By Facility): CTDIvol = ( 20.97 ) mGy, DLP = ( 510.17 ) mGycm TECHNIQUE: The examination was performed with the intravenous administration of 100ml isovue 370. Post-processing of the angiographic images was performed, with multiplanar reformation and 3D reconstruction. Individualized dose optimization techniques were used for this CT. COMPARISON: None. FINDINGS: Normal enhancement of the main pulmonary artery and right and left pulmonary arteries. Normal enhancement of the bilateral peripheral pulmonary arteries. There is no demonstrated pulmonary embolism. Calcified thoracic aorta and visualized great vessels. Prominent ascending aorta at 4.4 cm in diameter. There is no demonstrated aortic dissection. Normal heart and pericardium. Normal mediastinum. Left hilar calcifications. Normal visualized trachea and bronchi. The lungs are well expanded. Left pulmonary calcified granulomas. Bibasal atelectasis/consolidations, right more than left. Normal chest wall structures. Degenerative vertebral changes. Hypoattenuated 2 cm partially calcified right hepatic nodule is noted. CT/CTA Chest W/WO Contrast IMPRESSION: No demonstrated pulmonary embolism or arterial dissection. Dilated ascending aorta. Bibasilar atelectasis/consolidations, right more than left. Left pulmonary and hilar granulomatous calcifications. Right hepatic nodule as noted. Electronically Signed: Vivek Garland DO at 13:50 EDT Tel [phone], Service support ,
[2019-08-18 11:57] LABS: Bacteria 0 SEEN /hpf (None Seen); Mucous, Urine 0 SEEN /hpf (<or=2+); Red Blood Cells-Urine 0 SEEN /hpf (0-5)
--- NOTE | 2019-08-18 11:57 | ED.VIS.GEN ---
History of Present Illness Chief Complaint: Shortness of Breath Informant: Patient Onset: Today Maximum Severity: Mild Narrative: Patient presents from nursing center with complaints of shortness of breath, he does not know if he has coronavirus exposure Per the transfer sheet from [facility] the patient has not been tested for coronavirus nor has anyone at the facility been positive for coronavirus Patient indicates that he is [facility] related to multiple orthopedic procedures on lower extremities to the point that he cannot walk he has chronic edema to the left leg he fell recently and he has recent fall with right femur fracture treated with knee immobilizer as he is immobile he has history of A. fib history of blood clots possibly pulmonary emboli he occasionally wears oxygen at bedtime uses CPAP at bedtime he believes he has not had a fever he is had no cough but shortness of breath, he has no abdominal pain his bowel and bladder habits otherwise unremarkable he is noted to be on Plavix and Eliquis Past Medical History - Allergies and Home Meds Allergies/Adverse Reactions: Allergies No Known Allergies Allergy (Verified 08/18/19 11:28) Primary Care Physician: Mario Garza MD [STAFF PHYSICIAN] - Past Medical History: - - A. fib blood clots PE immobility total hip and knee replacements Surgical History: total hip arthroplasty, total knee arthroplasty, tonsillectomy, - - Back surgery Smoking Status: Never smoker - Family History Sibling Family History: Family History (Last Reviewed 05/23/19 @ 10:27 by Kathie Schmidt) Brother Cancer Father Heart disease Family History: Reports: Cancer, - Maternal Family History: Family History (Last Reviewed 05/23/19 @ 10:27 by Kathie Schmidt) Brother Cancer Father Heart disease Family History: Reports: Diabetes Paternal Family History: Family History (Last Reviewed 05/23/19 @ 10:27 by Kathiekeke Schmidt) Brother Cancer Father Heart disease Family History: Reports: Unknown Review of Systems ROS: - A. fib blood clots PE immobility total hip and knee replacements right femur fracture General: Denies: Chills, Fever, Sweats Eyes: Denies: Visual changes - bilaterally, Diplopia ENT: Denies: Rhinorrhea, Sore throat Cardiovascular: Denies: Chest pain, Palpitations Respiratory: Reports: Dyspnea on exertion. Denies: Dyspnea, Cough Gastrointestinal: Denies: Abdominal pain, Nausea, Vomiting, Diarrhea, Melena, Hematochezia Genitourinary: Denies: Dysuria, Hematuria, Frequency Musculoskeletal: Denies: Back pain, Extremity Pain Skin: Denies: Rash, Wounds Neurological: Denies: Headache, Weakness, Numbness Physical Exam Vital Signs/Narrative: Vital Signs Temp Pulse Resp BP Pulse Ox 08/18/19 11:28 97.5 F L 70 16 119/95 H 96 08/18/19 11:19 97.5 F L 70 16 119/95 H 96 General: Well nourished, Well developed, No Acute Distress Head: Normocephalic, Atraumatic Eyes: Perrl, EOMI ENT: Moist mucous membranes, No rhinorrhea Neck: Supple, Nontender Cardiovascular: Regular rate, Regular rhythm, No murmurs Respiratory: No distress, CTA bilaterally, Chest nontender Abdomen: Soft, Nontender, Nondistended, Normal bowel sounds Back: Nontender, Normal Inspection Extremities: Nontender, - - Patient has chronic edema to the left leg and is basically wrapped with what appears to be an julissa boot type wrap or Anant it is not bothering him he has this ulcer to the second toe left foot, he has pain over the distal femur from previous fracture his neurovascular function appears normal he Francois basically really cannot move his legs much he cannot bear weight this is baseline for him Skin: Normal color, No rash Neurological: Alert, Oriented x3, Cranial nerves II-XII grossly intact, Normal Strength, Normal Sensation Psychological: Normal affect, Normal Mood Diagnostic/Tx/Re-eval - Medical Decision Making Patient's vital signs are unremarkable he has a room air pulse ox of 90% that appears baseline for him he occasionally wears oxygen at nursing center he denies fever or cough he has had no exposures per penitentiary transfer form to the coronavirus he is more short of breath than his baseline, he has a history of blood clots possibly PE, he has a history of recent rectal bleed where they may have held the Eliquis he is having normal bowel bladder habits now at this time screening labs are obtained x-ray hand-held spacer Proventil CTA The patient is remained hemodynamically stable here, the chest x-ray showed bibasilar infiltrates, CTA of the chest showed no PE or dissection did show right greater than left consolidation lower lobes, his screening labs are generally unremarkable, he is eligible for the inpatient COVID coronavirus screen which was been ordered he was started IV antibiotics and have asked the hospital see him for admission and further management Admit stable Final impression dyspnea bi lobar infiltrates right greater than left resident of penitentiary ED Disposition - Plan for ED Patient: Diagnosis: Bilobar pneumonia Referrals: Mario Garza MD [STAFF PHYSICIAN] -
[2019-08-18 11:58] LABS: Color, Urine Yellow (Yellow); Glucose, Dipstick Normal (Normal); Ketone-Dipstick Negative (Negative); Leukocyte Esterase-Dipstick 25 /ul (Negative); Nitrite-Dipstick Negative (Negative); Occult Blood-Urine Negative /ul (Negative); Protein-Dipstick Negative (Negative); Urine Bilirubin Dipstick Negative (Negative); Urine Clarity Clear (Clear); Urine Urobilinogen Normal (Normal)
--- NOTE | 2019-08-18 12:01 | ED.RN ---
pt straight catheterized for urine sample r/t incontinence. pt uncircumsized and foreskin unable to be retracted back.
[2019-08-18 12:03] LABS: Anion Gap 6 (5-15); BUN 33 mg/dL (7-18); Calcium,Total 8.3 mg/dL (8.5-10.1); Chloride 103 mmol/L (98-107); Creatinine, Serum 1.27 mg/dL (0.70-1.30); EST Glomerular Filtration Rate 58 mL/min (>60); Est Glom Filt Rate - Afr Amer 70 mL/min (>60); Glucose 171 mg/dL (74-106); Lactic Acid 1.7 mmol/L (0.4-1.9); Potassium 3.6 mmol/L (3.5-5.1); Sodium Level 141 mmol/L (136-145)
[2019-08-18 12:04] LABS: Squamous Epithelial Cells - UA 0-5 SEEN /hpf (0-5); White Blood Cells 0-5 SEEN /hpf (0-5)
[2019-08-18] MEDS: HYDROcodone Bitartrate/Apap 5/325 Tablet PO (14:40)
--- NOTE | 2019-08-18 14:47 | PCM.HP.STD ---
Problem List (1) Dyspnea Status: Chronic Qualifiers: Dyspnea type: dyspnea on exertion Qualified Code(s): R06.09 - Other forms of dyspnea (2) History of bilateral hip replacements Status: Resolved (3) History of bilateral knee replacement Status: Resolved (4) Osteoarthritis Status: Chronic (5) Obstructive sleep apnea syndrome Status: Chronic (6) Chronic kidney disease, stage II (mild) Status: Chronic (7) Cataract Status: Chronic (8) Obesity Status: Chronic Qualifiers: Obesity type: due to excess calories Obesity classification: adult class 3 (BMI >= 40) Serious obesity comorbidity presence: with serious comorbidity Body mass index: BMI 45.0-49.9 Qualified Code(s): E66.01 - Morbid (severe) obesity due to excess calories; Z68.42 - Body mass index (BMI) 45.0-49.9, adult Comment: bmi 44 (9) Gastroesophageal reflux disease Status: Chronic (10) Acute urinary tract infection Status: Acute Comment: E. Coli UTI Cx. (11) Acute urinary retention Status: Acute Comment: Crews placed w/ E. Coli UCx, discontinued prior to discharge. Plan outpatient Urology consultation and increased flomax. (12) Conjunctivitis Status: Acute Comment: L Eye. 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 Patient complain of shortness of breath for 3 to 4 days but fever, chills. Patient has mild intermittent chronic cough but no recent change in severity or production of sputum. It is mainly dry cough. Denies chest pain, heaviness or tightness. The patient has history of obstructive sleep apnea, morbid obesity and asthma and HFpEF on Lasix 80 mg twice daily. In ER, no fever. Blood pressure 114/69, no tachypnea but hypoxia 95% on 3 L of oxygen. 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 Coli UTI Cx. Acute urinary retention (Acute) R33.8 Crews placed w/ E. Coli UCx, discontinued prior to discharge. Plan outpatient Urology consultation and increased flomax. Conjunctivitis (Acute) H10.9 L Eye. 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 Severe small vessel ischemic Seizure (Chronic) Benign essential hypertension (Chronic) I10 Allergies No Known Allergies Allergy (Verified 08/18/19 11:28) Home Medications: Ambulatory Orders Medication Instructions Recorded Multivitamins,Therapeutic 1 tab PO DAILY 09/10/14 [Multivitamin] Calcium Citrate/Vitamin D3 1 tab PO DAILY 05/11/15 [Calcium Citrate - Vit D Tablet] Ergocalciferol [Vitamin D] 50,000 unit PO WE 05/11/15 Magnesium Oxide [Mag-Ox 400] 400 mg PO DAILY 05/11/15 Diltiazem CD [Cardizem CD] 180 mg PO DAILY #30 cap 01/13/17 Acetaminophen [Tylenol] 650 mg PO BID 11/14/18 Apixaban [Eliquis] 5 mg PO BID 11/14/18 Atorvastatin Calcium [Lipitor] 40 mg PO QHS 11/14/18 Cod Liver Oil 1 ea PO DAILY 11/14/18 Docusate Sodium [Colace] 100 mg PO DAILY 11/14/18 Furosemide [Lasix] 80 mg PO BID 11/14/18 Losartan Potassium 50 mg PO DAILY 11/14/18 Oxycodone HCl 5 mg PO Q4H PRN PRN 11/14/18 Oxycodone HCl [Roxicodone] 5 mg PO QHS 11/14/18 Potassium Chloride [K-Dur] 40 meq PO BID 11/14/18 Tamsulosin HCl [Flomax] 0.4 mg PO BID 11/14/18 Carvedilol 12.5 mg PO BID #0 11/16/18 Ipratropium/Albuterol Sulfate 3 ml INHALATION Q4H PRN PRN 11/16/18 [Duoneb] ampul.neb budesonide 0.5 mg/2 mL suspension 0.5 mg INHALATION BID #60 ml 05/23/19 for nebulization Bisacodyl 10 mg SC DAILY PRN 08/16/19 Calcium Carbonate [Tums] 600 mg PO Q2H PRN PRN 08/16/19 Ferrous Sulfate 325 mg PO DAILY 08/16/19 Hydrochlorothiazide [Hctz] 25 mg PO DAILY 08/16/19 Magnesium Hydroxide [Milk Of 30 ml PO BID PRN 08/16/19 Magnesia] Polyethylene Glycol 3350 [Miralax] 17 gm PO DAILY PRN 08/16/19 Sennosides/Docusate Sodium [Senna 1 ea PO DAILY 05/08/20 Plus 8.6-50 mg Tablet] Surgical History: Surgical History (Last Reviewed 05/23/19 @ 10:27 by Kathie Schmidt) History of bilateral hip replacements (Resolved) Z96.643 History of bilateral knee replacement (Resolved) Z96.653 Surgical History: total hip arthroplasty, total knee arthroplasty, tonsillectomy, - - Back surgery Psychiatric History: No pertinent psych hx Smoking Status: Never smoker - *Family History Maternal Family History: Family History (Last Reviewed 05/23/19 @ 10:27 by Kathie Schmidt) Brother Cancer Father Heart disease History Items: Diabetes Paternal Family History: Family History (Last Reviewed 05/23/19 @ 10:27 by Kathie Schmidt) Brother Cancer Father Heart disease History Items: Unknown Sibling Family History: Family History (Last Reviewed 05/23/19 @ 10:27 by Kathie Schmidt) Brother Cancer Father Heart disease History Items: Cancer, - Review of Systems Constitutional: Denies: Chills, Fever HEENT: Denies: Head Aches, Sinus Congestion, Sinus Drainage Cardiovascular: Denies: Chest Pain, Chest Pressure, Chest Tightness, Palpitations Respiratory: Reports: Cough, Shortness of breath at rest, Shortness of breath upon exertion. Denies: Sputum production Gastrointestinal: Denies: Abdominal Pain, Nausea, Vomiting Genitourinary: Reports: - - Denies burning micturition. Denies: Dysuria, Urgency Musculoskeletal: Reports: Joint Pain, Joint stiffness. Denies: Joint Tenderness Skin: Denies: Rash, Wounds Neurological: Reports: Balance problems, - - On wheelchair. Denies: Focal weakness, Numbness, Tingling Psychiatric: Denies: Anxiety, Depression, Homicidal Ideations, Suicidal Ideations Hematologic/ Lymphatic: Denies: Easy Bruising, Easy Bleeding VTE Information - Inpt Only VTE Present on Admission: No VTE Pharm Prophylaxis ordered?: No Reason prophylaxis not ordered:: Procedure Not Indicated - Already on Eliquis Patient Problems: Active and Suspected Problems (Last Reviewed 05/23/19 @ 10:27 by Kathie Schmidt) Acute hypoxic respiratory insufficiency (Acute) Bilateral pneumonia (Acute) - Physical Exam Vitals/I&O's: Vital Signs Temp Pulse Resp BP Pulse Ox 98.1 F 103 H 18 122/84 H 95 08/18/19 14:33 08/18/19 14:33 08/18/19 14:33 08/18/19 14:33 08/18/19 14:33 Oxygen Flow Rate (L/min) 3 Oxygen Delivery Method Nasal Cannula Weight: 325 lb 6.436 oz Body Mass Index (BMI) 46.7 Finger Stick Blood Glucose 180 General: Alert, Oriented x3, Cooperative HEENT: Atraumatic, PERRLA, EOMI, Normocephalic Oral: Dry Mucosa Neck: Supple, No JVD, Negative Carotid Bruits Lungs: No wheeze, No rales, Diminished - Air entry diminished in bilateral lung bases, Rhonchi Cardiovascular: Regular rate, Regular Rhythm, Normal S1, Normal S2, No murmurs Abdomen: Bowel Sounds Present, Soft, Non Tender, Non-Distended Extremities: Capillary Refill Less than 3 Seconds, Edema Skin: No rashes, No breakdown Musculoskeletal: No Tenderness to Palpation of Joints or Extremities, Arthritic Changes Neurological: Cranial nerves II-XII grossly intact, Deep Tendon Reflexes 2+/4 and Symmetrical, Neuro grossly intact Psych/Mental Status: Normal Affect, Appropriate Laboratory Results 08/18/19 11:25: WBC 7.7, RBC 3.92 L, Hgb 10.8 L, Hct 34.1 L, MCV 87.0, MCH 27.6, MCHC 31.7 L, RDW Std Deviation 46.0 H, RDW Coeff of Germán 14.6, Plt Count 207, MPV 10.0, Immature Gran % (Auto) 0.700, Neut % (Auto) 68.9, Lymph % (Auto) 15.1 L, [place] % (Auto) 9.5, Eos % (Auto) 5.1 H, Baso % (Auto) 0.7, Absolute Neuts (auto) 5.3, Absolute Lymphs (auto) 1.16, Nucleated RBC % 0 08/18/19 11:25: Sodium 141, Potassium 3.6, Chloride 103, Carbon Dioxide 32.0, Anion Gap 6, BUN 33 H, Creatinine 1.27, Estim Creat Clear Calc 47.10, Est GFR (MDRD) Af Amer 70, Est GFR (MDRD) Non-Af 58 L, BUN/Creatinine Ratio 26.0 H, Glucose 171 H, Calcium 8.3 L, Troponin I 0.033 08/18/19 11:25: Lactic Acid 1.7 08/18/19 11:53: Urine Color Yellow, Urine Clarity Clear, Urine pH 6.0, Ur Specific [place] 1.020, Urine Protein Negative, Urine Glucose (UA) Normal, Urine Ketones Negative, Urine Occult Blood Negative, Urine Nitrite Negative, Urine Bilirubin Negative, Urine Urobilinogen Normal, Ur Leukocyte Esterase 25 H, Urine RBC 0 SEEN, Urine WBC 0-5 SEEN, Ur Squamous Epith Cells 0-5 SEEN, Urine Bacteria 0 SEEN, Urine Mucus 0 SEEN 08/18/19 12:00: COVID-19 ([facility]) Pending Current Medications Sodium Chloride () 1,000 mls @ 0 mls/hr IV .Q0M KARRI Vancomycin HCl 1,250 mg/ (Sodium Chloride) 275 mls @ 167 mls/hr IV X1 ONE Stop: 08/18/19 15:47 Sodium Chloride () 250 mls @ 15 mls/hr IV .[id number] PRN PRN Reason: Additional IVPB Infusion Last Admin: 08/18/19 14:40 Dose: 15 mls/hr Documented by: Assessment/Plan All Active Problems (Last Reviewed 05/23/19 @ 10:27 by Kathie Schmidt) Acute hypoxic respiratory insufficiency (Acute) Bilateral pneumonia (Acute) History of bilateral hip replacements (Resolved) History of bilateral knee replacement (Resolved) Acute urinary tract infection (Acute) Acute urinary retention (Acute) Conjunctivitis (Acute) Asthma exacerbation (Acute) Abnormal nuclear stress test (Acute) Physical debility (Acute) Frequent falls (Acute) The patient is a 83 year old M with multiple comorbidities as listed above came to ER from [facility] for worsening of shortness of breath, low hemoglobin concern of GI bleed versus COVID. Denies chest pain, heaviness or tightness. In ER, no fever. Blood pressure 114/69, no tachypnea but hypoxia 95% on 3 L of oxygen. 1. Acute hypoxic respiratory insufficiency on chronic hypoxic respiratory failure with history of asthma, stable: Patient uses 2 L of oxygen at night along with CPAP. Patient is being admitted on [facility] floor. Chest CT scan done in ER shows bibasilar atelectasis/consolidation, right more than left. Clinically patient does not have fever, tachypnea or severe hypoxia beyond his baseline therefore more likely it is atelectasis rather than pneumonia. Empirically started on IV ceftriaxone and Zithromax until infectious process ruled out. If patient spikes fever, will need blood culture x2. Pneumonia work-up including sputum culture, urinary antigens, MRSA nasal screen and respiratory panel ordered. COVID-19 test ordered by ER physician. Maintain COVID-19 precaution until ruled out. Troponin negative. LFT, GGT, procalcitonin, BNP and CRP ordered. Patient asthma is stable. On Pulmicort inhalation twice daily. Maintain CPAP at night 2. Chronic heart failure with preserved EF/chronic diastolic heart failure: Lasix 80 mg twice daily. Also on carvedilol.EF per echo(2017) is 60%. Not in acute exacerbation. BNP is 157 not impressive. Has chronic bilateral lower extremity edema with venous stasis. As per patient it has not changed in the last 2 to 3 months. 3. Acute on chronic normocytic normochromic anemia: Patient has chronic anemia which range between 12 to 13 g%. Currently 10.8 g%. Patient is on Eliquis. Monitor H&H. If there is significant drop will need anemia work-up or blood transfusion if hemoglobin drops less than 7 g%. Chronic A. fib, rate controlled: On carvedilol, Cardizem and Eliquis. 4. Hypertension: On losartan and carvedilol. 5. BPH: Flomax. 6. Acute right distal fibula fracture, nondisplaced with history of bilateral TKR and bilateral hip replacement: Patient was seen in ER on 08/16/2023 after fall at group home and found right nondisplaced distal femur fracture and was put on knee immobilizer. ER physician at that time called Dr. Isak Lowe and was asked to follow-up as an outpatient. Currently patient has knee immobilizer. PT OT ordered 7. Diabetes mellitus type 2: Accu-Chek before meals and at bedtime and cover with Hem-o-gordon sliding scale. Titrate the dose of insulin accordingly. 8. Other comorbidities include left prefrontal chronic stroke, seizure, morbid obesity BMI 44, physical debility with frequent fall: Multiple comorbidities complicates the present care and expect difficult and delay recovery DVT prophylaxis: On Eliquis. Discontinue if platelet count drops less than 50,000 or hemoglobin less than 8 g% Prognosis guarded. Living will/advanced directive/end of life care: Patient does have living will or advanced directive which states DNR CC arrest. After discussion of procedures involved with full code, DNR CC arrest and DNR CC, the patient want to maintain DNR-CC Arrest Patient does not want artificial life support including intubation, tube feed, ventilator and/chest compression, central venous catheter, vasopressor and DC shock if needed DNR CC arrest. Total time spent in [id number] encounter in discussion of advanced directive 16 minutes. Clinical Impression(s) from Imaging Studies Chest X-Ray 08/18/19 11:27 IMPRESSION: Basilar atelectasis. Electronically Signed: Vivek Galrand DO at 12:55 EDT Tel [phone], Service support , Chest CTA 08/18/19 11:48 IMPRESSION: No demonstrated pulmonary embolism or arterial dissection. Dilated ascending aorta. Bibasilar atelectasis/consolidations, right more than left. Left pulmonary and hilar granulomatous calcifications. Right hepatic nodule as noted. Inpatient E&M: 07886 Init Hosp L3 Procedures: 01465 Advncd Care Plan 30 Min
[2019-08-18 16:10] LABS: International Normalized Ratio 1.3; Prothrombin Time (Protime)PT. 15.6 SECONDS (11.7-14.9)
[2019-08-18 16:14] LABS: GGTP 31 U/L (15-85); Magnesium 2.1 mg/dL (1.6-2.6)
[2019-08-18 16:38] LABS: BNP,B-Type NATRIURETIC PEPTIDE 181.7 pg/mL (0-100)
[2019-08-18] MEDS: 0.9% Normal Saline 1,000 ML 75 ML IV (16:41)
[2019-08-18 17:24] LABS: Procalcitonin 0.05 ng/mL (0.00-0.09)
[2019-08-18 17:41] LABS: Bedside Glucose 132 mg/dL (70-110)
[2019-08-18] MEDS: oxyCODONE 5 MG Tablet PO (18:57)
[2019-08-18] MEDS: Furosemide 80 MG Tablet PO (18:57)
[2019-08-18] MEDS: guaiFENesin 1,200 MG Tablet 1200 MG PO ×2 (18:57→21:29)
[2019-08-18] MEDS: Tamsulosin HCl 0.4 MG Capsule PO (19:40)
[2019-08-18 19:49] LABS: M R Staph aureus DNA By PCR POSITIVE (Negative); Probe Check PASS
[2019-08-18] MEDS: Ipratropium/Albuterol Sulfate 3 ML AMPUL.NEB INHALATION (19:50)
[2019-08-18] MEDS: Budesonide Respules 0.5 MG/2 ML AMPUL.NEB. INHALATION (19:51)
[2019-08-18] MEDS: Insulin Lispro 100 UNIT/ML INSULN.PEN SC (21:29)
[2019-08-18] MEDS: Atorvastatin Calcium 40 MG Tablet PO (21:29)
[2019-08-18] MEDS: APIXABAN 5 MG TABLET PO (21:29)
[2019-08-18] MEDS: Carvedilol 12.5 MG Tablet PO (21:29)
[2019-08-18 21:40] LABS: Bedside Glucose 202 mg/dL (70-110)
[2019-08-19] VITALS (12 sets, daily range): BP systolic 93–135; BP diastolic 63–76; PULSE 63–84; RESP 16–20; TEMP 36.6–36.8; O2SAT 90–99
[2019-08-19] MEDS: Menthol/Lanolin/Calamine/Znox 113 GM Tube 1 APPLIC TOPICAL ×3 (04:30→21:56)
[2019-08-19 05:36] LABS: Absolute Neutrophil Count 5.3 X10^3/uL (2.0-7.7); Basophil# 0.05 X10^3/uL; Basophil% 0.7 % (0-1); Eosinophil# 0.37 X10^3/uL; Hematocrit 35.9 % (40-54); Hemoglobin 11.1 g/dL (13.0-16.5); Lymphocyte % 12.3 % (19-41); Mean Corp Hgb Conc 30.9 g/dL (32-36); Mean Corpuscular Hgb 27.1 pg (27.0-32.0); Mean Corpuscular Volume 87.6 fL (80-94); Mean Platelet Vol. 9.6 fl (6.2-12.0); Monocyte# 0.68 X10^3/uL; Monocyte% 9.3 % (0-10); NRBC Flagged by Analyzer 0 % (0-5); Neutrophil % 72.2 % (47-70); Platelet Count 199 K/mm3 (150-450); RBC Distribution Width CV 14.3 % (11.6-14.6); RBC Distribution Width SD 46.1 fl (35.1-43.9); White Blood Count 7.3 K/mm3 (4.4-11.0)
[2019-08-19 05:59] LABS: ALB/GLOB Ratio 0.6 RATIO (0.9-2.4); AST(SGOT) 10 U/L (15-37); Alanine Aminotransfer ALT/SGPT 14 U/L (16-61); Albumin, Serum 2.4 g/dL (3.2-5.0); Alkaline Phosphatase 93 U/L (45-117); Anion Gap 7 (5-15); BUN 27 mg/dL (7-18); Bilirubin, Direct 0.19 mg/dL (0.00-0.30); Calcium,Total 7.8 mg/dL (8.5-10.1); Chloride 104 mmol/L (98-107); EST Glomerular Filtration Rate 76 mL/min (>60); Est Glom Filt Rate - Afr Amer 92 mL/min (>60); Estimated Creatinine Clearance 59.82 ml/min; Globulin 3.9 g/dL (2.2-4.2); Glucose 120 mg/dL (74-106); Potassium 3.6 mmol/L (3.5-5.1); Protein, Total 6.3 g/dL (6.4-8.2); Sodium Level 140 mmol/L (136-145); Thyroid Stim Hormone (TSH) 1.41 uIU/mL (0.358-3.74)
[2019-08-19 06:46] LABS: Bedside Glucose 129 mg/dL (70-110)
[2019-08-19] MEDS: Acetaminophen 325 MG Tablet 650 MG PO ×2 (07:14→14:02)
[2019-08-19] MEDS: oxyCODONE 5 MG Tablet PO ×3 (07:14→20:36)
[2019-08-19] MEDS: Budesonide Respules 0.5 MG/2 ML AMPUL.NEB. INHALATION ×2 (07:18→19:20)
[2019-08-19] MEDS: Ipratropium/Albuterol Sulfate 3 ML AMPUL.NEB INHALATION ×3 (07:18→19:20)
--- NOTE | 2019-08-19 07:40 | PN_ITS ---
Patient Problems: Active and Suspected Problems (Last Reviewed 05/23/19 @ 10:27 by Kathie Schmidt) Acute hypoxic respiratory insufficiency (Acute) Bilateral pneumonia (Acute) Reason for Visit: Follow-up on acute hypoxic respiratory failure/pneumonia Subjective: Patient was seen and examined. He feels improved. No fever Vitals/I&O's: Vital Signs Temp Pulse Resp BP Pulse Ox 97.8 F 63 17 110/68 96 08/19/19 02:30 08/19/19 04:22 08/19/19 04:22 08/19/19 02:30 08/19/19 04:22 Oxygen Flow Rate (L/min) 3 Oxygen Delivery Method CPAP Weight: 147.871 kg Body Mass Index (BMI) 46.6 Finger Stick Blood Glucose 180 Intake and Output for Last 24 Hours 08/17/19 08/18/19 08/19/19 23:59 23:59 23:59 Intake Total 1120.67 / 1120.67 Output Total 150 / 150 200 / 200 Balance 970.67 / 970.67 -200 / -200 General: Alert, Oriented x3, Cooperative, No apparent distress, - - on 2L of oxygen, morbidly obese HEENT: Atraumatic, PERRLA, EOMI, Normocephalic Oral: Moist Mucosa Neck: Supple Lungs: Diminished, Wheezes Cardiovascular: Regular rate, Regular Rhythm, Normal S1, Normal S2, No murmurs Abdomen: Bowel Sounds Present, Soft, Non Tender, Non-Distended, No Hepato- splenomegaly Extremities: Edema - trace- +1 bilateral leg pain Skin: No rashes Musculoskeletal: No Tenderness to Palpation of Joints or Extremities Lymphatic: No Cervical, Supraclavicular, or Inguinal Adenopathy Neurological: Cranial nerves II-XII grossly intact, Neuro grossly intact Psych/Mental Status: Normal Affect, Appropriate Microbiology Past 72 Hours 08/18/19 15:55 Mucosa - Nose Respiratory Panel (PCR) - Final 08/18/19 12:00 Mucosa - Nasopharyngeal Coronavirus COVID-19 PCR - Final 08/18/19 16:05 Urine, Random Streptococcus pneumoniae Antigen (M - Final 08/18/19 16:05 Urine, Random Legionella Antigen - Final Laboratory Results 08/18/19 11:25: WBC 7.7, RBC 3.92 L, Hgb 10.8 L, Hct 34.1 L, MCV 87.0, MCH 27.6, MCHC 31.7 L, RDW Std Deviation 46.0 H, RDW Coeff of Germán 14.6, Plt Count 207, MPV 10.0, Immature Gran % (Auto) 0.700, Neut % (Auto) 68.9, Lymph % (Auto) 15.1 L, [place] % (Auto) 9.5, Eos % (Auto) 5.1 H, Baso % (Auto) 0.7, Absolute Neuts (auto) 5.3, Absolute Lymphs (auto) 1.16, Nucleated RBC % 0 08/18/19 11:25: Sodium 141, Potassium 3.6, Chloride 103, Carbon Dioxide 32.0, Anion Gap 6, BUN 33 H, Creatinine 1.27, Estim Creat Clear Calc 47.10, Est GFR (MDRD) Af Amer 70, Est GFR (MDRD) Non-Af 58 L, BUN/Creatinine Ratio 26.0 H, Glucose 171 H, Calcium 8.3 L, Troponin I 0.033 08/18/19 11:25: Lactic Acid 1.7 08/18/19 11:25: C-React Prot Ext Range 50.20 H 08/18/19 11:25: B-Natriuretic Peptide 181.7 H 08/18/19 11:25: Magnesium 2.1, GGT 31 08/18/19 11:25: PT 15.6 H, INR 1.3 08/18/19 11:53: Urine Color Yellow, Urine Clarity Clear, Urine pH 6.0, Ur Specific [place] 1.020, Urine Protein Negative, Urine Glucose (UA) Normal, Urine Ketones Negative, Urine Occult Blood Negative, Urine Nitrite Negative, Urine Bilirubin Negative, Urine Urobilinogen Normal, Ur Leukocyte Esterase 25 H, Urine RBC 0 SEEN, Urine WBC 0-5 SEEN, Ur Squamous Epith Cells 0-5 SEEN, Urine Bacteria 0 SEEN, Urine Mucus 0 SEEN 08/18/19 12:00: COVID-19 ([facility]) Cancelled 08/18/19 16:05: Procalcitonin 0.05 08/18/19 17:35: POC Glucose 132 H 08/18/19 17:41: MRSA (PCR) POSITIVE H 08/18/19 21:19: POC Glucose 202 H 08/19/19 05:14: Sodium 140, Potassium 3.6, Chloride 104, Carbon Dioxide 29.0, Anion Gap 7, BUN 27 H, Creatinine 1.00, Estim Creat Clear Calc 59.82, Est GFR (MDRD) Af Amer 92, Est GFR (MDRD) Non-Af 76, BUN/Creatinine Ratio 27.0 H, Glucose 120 H, Calcium 7.8 L, Total Bilirubin 0.50, Direct Bilirubin 0.19, AST 10 L, ALT 14 L, Alkaline Phosphatase 93, Total Protein 6.3 L, Albumin 2.4 L, Globulin 3.9, Albumin/Globulin Ratio 0.6 L, TSH 1.41 08/19/19 05:14: WBC 7.3, RBC 4.10 L, Hgb 11.1 L, Hct 35.9 L, MCV 87.6, MCH 27.1, MCHC 30.9 L, RDW Std Deviation 46.1 H, RDW Coeff of Germán 14.3, Plt Count 199, MPV 9.6, Immature Gran % (Auto) 0.500, Neut % (Auto) 72.2 H, Lymph % (Auto) 12.3 L, [place] % (Auto) 9.3, Eos % (Auto) 5.0, Baso % (Auto) 0.7, Absolute Neuts (auto) 5.3, Absolute Lymphs (auto) 0.90, Nucleated RBC % 0 08/19/19 06:42: POC Glucose 129 H Current Medications Acetaminophen (Tylenol) 650 mg PO Q6H PRN PRN PRN Reason: Pain Score 1-10/Temp > 100.7 F Last Admin: 08/19/19 07:14 Dose: 650 mg Documented by: Albuterol Sulfate (Ventolin Aerosols) 2.5 mg INHALATION Q2H PRN PRN PRN Reason: Shortness of Breath/Wheezing Albuterol/Ipratropium (Duoneb) 3 ml INHALATION Q6H.RT [facility] Last Admin: 08/19/19 07:18 Dose: 3 ml Documented by: Apixaban (Eliquis) 5 mg PO BID [facility] Last Admin: 08/18/19 21:29 Dose: 5 mg Documented by: Atorvastatin Calcium (Lipitor) 40 mg PO QHS [facility] Last Admin: 08/18/19 21:29 Dose: 40 mg Documented by: Bisacodyl (Dulcolax) 10 mg RECTAL DAILY PRN PRN Reason: Constipation Budesonide (Pulmicort Aerosol) 0.5 mg INHALATION BID.RT [facility] Last Admin: 08/19/19 07:18 Dose: 0.5 mg Documented by: Calamine/Phenol (Calmoseptine Ointment) 1 applic TOPICAL TID [facility]; Protocol Last Admin: 08/19/19 04:30 Dose: 1 applicatio Documented by: Carvedilol (Coreg) 12.5 mg PO BID [facility] Last Admin: 08/18/19 21:29 Dose: 12.5 mg Documented by: Dextrose (D50w Syringe) 0 gm IV X1 PRN; Protocol PRN Reason: Hypoglycemia Diltiazem HCl (Cardizem Cd) 180 mg PO DAILY [facility] Ergocalciferol (Vitamin D) 50,000 unit PO WE [facility] Ferrous Sulfate (Ferrous Sulfate) 325 mg PO DAILY [facility] Furosemide (Lasix) 80 mg PO BIDLX [facility] Last Admin: 08/18/19 18:57 Dose: 80 mg Documented by: Glucagon () 1 mg IM .X1 PRN PRN Reason: Hypoglycemia Guaifenesin (Mucinex) 1,200 mg PO BID [facility] Last Admin: 08/18/19 21:29 Dose: 1,200 mg Documented by: Hydrochlorothiazide (Hctz) 25 mg PO DAILY [facility] Sodium Chloride () 1,000 mls @ 0 mls/hr IV .Q0M [facility] Sodium Chloride () 250 mls @ 15 mls/hr IV .[id number] PRN PRN Reason: Additional IVPB Infusion Last Infusion: 08/18/19 16:41 Dose: 0 mls/hr Documented by: Ceftriaxone Sodium 2 gm/ (Sodium Chloride) 50 mls @ 100 mls/hr IV Q24 [facility] Stop: 08/25/19 10:29 Last Infusion: 08/18/19 19:36 Dose: Infused Documented by: Azithromycin 500 mg/ Dextrose 255 mls @ 250 mls/hr IV Q24 [facility] Stop: 08/23/19 11:02 Last Infusion: 08/18/19 20:39 Dose: Infused Documented by: Insulin Human Lispro (Humalog Kwikpen (Bkc)) 0 unit SC ACHS [facility]; Protocol Last Admin: 08/19/19 06:45 Dose: Not Given Documented by: Losartan Potassium (Cozaar) 50 mg PO DAILY [facility] Magnesium Oxide (Mag-Ox 400) 400 mg PO DAILY [facility] Morphine Sulfate () 2 mg IV Q3H PRN PRN PRN Reason: Pain Score 6-10/10 Multivitamins (Multivitamin) 1 tablet PO DAILY [facility] Nitroglycerin (Nitrostat) 0.4 mg SUBLINGUAL Q5M PRN PRN Reason: CARDIAC/CHEST PAIN Nutritional Formula (Lactose Free) (Glucerna Shake) 120 ml PO 4X/DAY [facility] Last Admin: 08/18/19 21:29 Dose: Not Given Documented by: Oxycodone HCl (Oxyir) 5 mg PO Q4H PRN PRN PRN Reason: Pain Score 4-5/10 Last Admin: 08/19/19 07:14 Dose: 5 mg Documented by: Polyethylene Glycol (Miralax) 17 gm PO DAILY PRN PRN Reason: Constipation Potassium Chloride (K-Dur) 40 meq PO BID [facility] Last Admin: 08/18/19 21:29 Dose: 40 meq Documented by: Prochlorperazine Edisylate (Compazine Iv) 5 mg IV Q4H PRN PRN PRN Reason: Breakthrough nausea/vomiting Senna/Docusate Sodium (Senokot-S, Halima-Colace) 1 tablet PO DAILY [facility] Tamsulosin HCl (Flomax) 0.4 mg PO BID@0830,1730 [facility] Last Admin: 08/18/19 19:40 Dose: 0.4 mg Documented by: STROKE Vital Signs/Narrative: Vital Signs Pulse Resp Pulse Ox 08/19/19 04:22 63 17 96 Medical Necessity - Tobacco Use Smoking Status: Never smoker Assessment/Plan All Active Problems (Last Reviewed 05/23/19 @ 10:27 by Kathie Schmidt) Acute hypoxic respiratory insufficiency (Acute) Bilateral pneumonia (Acute) History of bilateral hip replacements (Resolved) History of bilateral knee replacement (Resolved) Acute urinary tract infection (Acute) Acute urinary retention (Acute) Conjunctivitis (Acute) Asthma exacerbation (Acute) Abnormal nuclear stress test (Acute) Physical debility (Acute) Frequent falls (Acute) 83 year old M with multiple co-morbidities admitted through ER from [facility] for worsening of shortness of breath. 1. Acute on chronic hypoxic respiratory insufficiency secondary to atelectasis/possible pneumonia Chest CT scan done in ER shows bibasilar atelectasis/consolidation, right more than left. Patient uses 2 L of oxygen at night along with CPAP. On IV Ceftriaxone and Zithromax (day 2) Encourage use of incentive s 2. Chronic heart failure with preserved EF 60%, stable, not in acute exacerbation Will continue with Lasix 80 mg twice daily, carvedilol, hold HCTZ. Daily weights, strict I & Os 3. Acute on chronic normocytic normochromic anemia, stable Hb at 11.1 Will continue to monitor. Repeat blood work in am 4. Chronic A. fib, rate controlled, Continue on carvedilol, Cardizem and Eliquis. 5. Hypertension, controlled, Continue on losartan and carvedilol. 6. Recent Acute right distal fibula fracture, nondisplaced with history of bilateral TKR and bilateral hip replacement, in knee mobilizer Outpatient follow-up with orthopedics surgery recommended 7. Diabetes mellitus type 2, BS is controlled Continue on ISS 8. Rest of co-morbidities include left prefrontal chronic stroke, seizure disorder, morbid obesity BMI 44, physical debility with frequent falls, complicates care and expected difficult and delay recovery 9. DVT PPx- Eliquis 10. Code status - DNR-CCA Inpatient E&M: 62310 Subs Hosp L2
[2019-08-19] MEDS: Tamsulosin HCl 0.4 MG Capsule PO ×2 (08:36→17:27)
[2019-08-19] MEDS: APIXABAN 5 MG TABLET PO ×2 (09:42→21:56)
[2019-08-19] MEDS: Glucerna Shake 120 ML LIQUID PO (09:42)
--- NOTE | 2019-08-19 09:42 | CASEMGMT ---
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 Original Note: Social Work Note Pt is listed as being from [facility]. KIM met with pt and introduced self and role at [facility]. Pt is alert and orientated x3. Pt confirms that he is from [facility] and will be returning at discharge. SW faxed clinicals to [facility]. Pt tested negative for COVID, SW faxed results to [facility]. 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 KIM placed a call to Nohelia at [facility] and left message. Per physician, pt is not medically cleared for discharge today. Plan: Return to [facility] once medically cleared Lilly Trevino DIRECTOR [employer], [employer]
[2019-08-19] MEDS: Multivitamins,Therapeutic Tablet 1 TABLET PO (09:43)
[2019-08-19] MEDS: dilTIAZem CD 180 MG Capsule PO (09:43)
[2019-08-19] MEDS: Furosemide 80 MG Tablet PO ×2 (09:43→17:27)
[2019-08-19] MEDS: Carvedilol 12.5 MG Tablet PO ×2 (09:43→21:56)
[2019-08-19] MEDS: Ferrous Sulfate 325 MG Tablet PO (09:43)
[2019-08-19] MEDS: Senna/Docusate Sodium 1 Tablet PO (09:43)
[2019-08-19] MEDS: hydroCHLOROthiazide 25 MG Tablet PO (09:43)
[2019-08-19] MEDS: Magnesium Oxide 400 MG Tablet PO (09:43)
[2019-08-19] MEDS: guaiFENesin 1,200 MG Tablet 1200 MG PO ×2 (09:47→21:57)
[2019-08-19] MEDS: Insulin Lispro 100 UNIT/ML INSULN.PEN SC ×2 (11:09→22:01)
[2019-08-19 11:16] LABS: Bedside Glucose 199 mg/dL (70-110)
--- NOTE | 2019-08-19 14:42 | NURSING ---
TALKED WITH PT'S DAUGHTER WITH PT'S PERMISSION AND GAVE UPDATE- GAVE HER HIS ROOM NUMBER SO FAMILY CAN CALL HIM
[2019-08-19 16:16] LABS: Bedside Glucose 149 mg/dL (70-110)
[2019-08-19] MEDS: Atorvastatin Calcium 40 MG Tablet PO (21:58)
[2019-08-19 22:11] LABS: Bedside Glucose 160 mg/dL (70-110)
[2019-08-20] VITALS (12 sets, daily range): BP systolic 113–135; BP diastolic 70–86; PULSE 66–87; RESP 16–22; TEMP 36.6–37.1; O2SAT 90–98
[2019-08-20 06:35] LABS: Absolute Lymphocyte Count 1.06 X10^3/uL (0.83-4.51); Absolute Neutrophil Count 4.6 X10^3/uL (2.0-7.7); Basophil# 0.04 X10^3/uL; Basophil% 0.6 % (0-1); Eosinophil# 0.36 X10^3/uL; Eosinophils% 5.3 % (0-5); Lymphocyte # 1.06 X10^3/ul (4.0); Lymphocyte % 15.6 % (19-41); Mean Corp Hgb Conc 31.4 g/dL (32-36); Mean Corpuscular Hgb 27.3 pg (27.0-32.0); Mean Corpuscular Volume 86.8 fL (80-94); Mean Platelet Vol. 9.3 fl (6.2-12.0); Monocyte# 0.68 X10^3/uL; NRBC Flagged by Analyzer 0 % (0-5); Neutrophil # 4.62 X10^3/uL (2.7-7.7); Neutrophil % 68.2 % (47-70); Platelet Count 208 K/mm3 (150-450); RBC Distribution Width CV 14.6 % (11.6-14.6); RBC Distribution Width SD 45.7 fl (35.1-43.9); Red Blood Count 4.03 M/mm3 (4.6-6.2); White Blood Count 6.8 K/mm3 (4.4-11.0)
[2019-08-20 06:41] LABS: Bedside Glucose 149 mg/dL (70-110)
[2019-08-20 07:06] LABS: ALB/GLOB Ratio 0.6 RATIO (0.9-2.4); AST(SGOT) 10 U/L (15-37); Alanine Aminotransfer ALT/SGPT 14 U/L (16-61); Albumin, Serum 2.5 g/dL (3.2-5.0); Alkaline Phosphatase 95 U/L (45-117); Anion Gap 7 (5-15); BUN 28 mg/dL (7-18); BUN/Creat Ratio 26.4 RATIO (10-20); Chloride 105 mmol/L (98-107); Creatinine, Serum 1.06 mg/dL (0.70-1.30); EST Glomerular Filtration Rate 71 mL/min (>60); Est Glom Filt Rate - Afr Amer 86 mL/min (>60); Estimated Creatinine Clearance 56.43 ml/min; Globulin 4.1 g/dL (2.2-4.2); Glucose 136 mg/dL (74-106); Potassium 3.4 mmol/L (3.5-5.1); Protein, Total 6.6 g/dL (6.4-8.2); Sodium Level 141 mmol/L (136-145)
[2019-08-20] MEDS: Budesonide Respules 0.5 MG/2 ML AMPUL.NEB. INHALATION ×2 (07:08→19:04)
[2019-08-20] MEDS: Ipratropium/Albuterol Sulfate 3 ML AMPUL.NEB INHALATION ×3 (07:08→19:04)
[2019-08-20] MEDS: Menthol/Lanolin/Calamine/Znox 113 GM Tube 1 APPLIC TOPICAL ×3 (07:26→22:01)
[2019-08-20] MEDS: 0.9% Saline Lock 10 ML Syringe IV ×3 (07:28→18:59)
[2019-08-20] MEDS: oxyCODONE 5 MG Tablet PO ×3 (07:31→19:00)
[2019-08-20] MEDS: Tamsulosin HCl 0.4 MG Capsule PO ×2 (10:17→18:59)
[2019-08-20] MEDS: Losartan Potassium 50 MG Tablet PO (10:17)
[2019-08-20] MEDS: Carvedilol 12.5 MG Tablet PO (10:17)
[2019-08-20] MEDS: dilTIAZem CD 180 MG Capsule PO (10:17)
[2019-08-20] MEDS: Ferrous Sulfate 325 MG Tablet PO (10:18)
[2019-08-20] MEDS: APIXABAN 5 MG TABLET PO ×2 (10:18→22:04)
[2019-08-20] MEDS: guaiFENesin 1,200 MG Tablet 1200 MG PO ×2 (10:19→22:02)
[2019-08-20] MEDS: Multivitamins,Therapeutic Tablet 1 TABLET PO (10:19)
[2019-08-20] MEDS: Magnesium Oxide 400 MG Tablet PO (10:19)
[2019-08-20] MEDS: Furosemide 80 MG Tablet PO (10:19)
[2019-08-20] MEDS: Senna/Docusate Sodium 1 Tablet PO (10:20)
--- NOTE | 2019-08-20 11:14 | NURSING ---
PTS DAUGHTER CALLED IN FOR UPDATE
[2019-08-20 11:40] LABS: Bedside Glucose 169 mg/dL (70-110)
[2019-08-20] MEDS: Insulin Lispro 100 UNIT/ML INSULN.PEN SC (12:19)
[2019-08-20] MEDS: Furosemide 20 MG/2 ML VIAL IV (13:34)
--- NOTE | 2019-08-20 16:31 | PN_ITS ---
Patient Problems: Active and Suspected Problems (Last Reviewed 05/23/19 @ 10:27 by Kathie Schmidt) Acute hypoxic respiratory insufficiency (Acute) Bilateral pneumonia (Acute) Reason for Visit: Follow-up on acute hypoxic respiratory failure/pneumonia Subjective: Patient seen and examined. He feels the same. He looks slightly SOB today with use of accessory muscles of inspiration. He denied any worsening cough, fever, chills. Objective: Physical exam: General: Alert, Oriented x3, Cooperative, No apparent distress, - - on 3L of oxygen, morbidly obese HEENT: Atraumatic, PERRLA, EOMI, Normocephalic Oral: Moist Mucosa Neck: Supple Lungs: Diminished, Wheezes Cardiovascular: Regular rate, Regular Rhythm, Normal S1, Normal S2, No murmurs Abdomen: Bowel Sounds Present, Soft, Non Tender, Non-Distended, No Hepato- splenomegaly Extremities: Edema - trace- +1 bilateral leg pain Skin: No rashes Musculoskeletal: No Tenderness to Palpation of Joints or Extremities Lymphatic: No Cervical, Supraclavicular, or Inguinal Adenopathy Neurological: Cranial nerves II-XII grossly intact, Neuro grossly intact Psych/Mental Status: Normal Affect, Appropriate Vitals/I&O's: Vital Signs Temp Pulse Resp BP Pulse Ox 97.9 F 66 18 119/74 94 08/20/19 10:00 08/20/19 13:07 08/20/19 13:07 08/20/19 10:00 08/20/19 13:07 Oxygen Flow Rate (L/min) 3 Oxygen Delivery Method Nasal Cannula Weight: 146.142 kg Body Mass Index (BMI) 46.6 Finger Stick Blood Glucose 180 Intake and Output for Last 24 Hours 08/18/19 08/19/19 08/20/19 23:59 23:59 23:59 Intake Total 1120.67 / 1120.67 1279.58 / 1479.58 985 / 985 Output Total 150 / 150 200 / 200 Balance 970.67 / 970.67 1079.58 / 1279.58 985 / 985 Microbiology Past 72 Hours 08/18/19 15:55 Mucosa - Nose Respiratory Panel (PCR) - Final 08/18/19 12:00 Mucosa - Nasopharyngeal Coronavirus COVID-19 PCR - Final 08/18/19 16:05 Urine, Random Streptococcus pneumoniae Antigen (M - Final 08/18/19 16:05 Urine, Random Legionella Antigen - Final Laboratory Results 08/19/19 22:00: POC Glucose 160 H 08/20/19 06:20: WBC 6.8, RBC 4.03 L, Hgb 11.0 L, Hct 35.0 L, MCV 86.8, MCH 27.3, MCHC 31.4 L, RDW Std Deviation 45.7 H, RDW Coeff of Germán 14.6, Plt Count 208, MPV 9.3, Immature Gran % (Auto) 0.300, Neut % (Auto) 68.2, Lymph % (Auto) 15.6 L, [place] % (Auto) 10.0, Eos % (Auto) 5.3 H, Baso % (Auto) 0.6, Absolute Neuts (auto) 4.6, Absolute Lymphs (auto) 1.06, Nucleated RBC % 0 08/20/19 06:20: Sodium 141, Potassium 3.4 L, Chloride 105, Carbon Dioxide 29.0, Anion Gap 7, BUN 28 H, Creatinine 1.06, Estim Creat Clear Calc 56.43, Est GFR (MDRD) Af Amer 86, Est GFR (MDRD) Non-Af 71, BUN/Creatinine Ratio 26.4 H, Glucose 136 H, Calcium 8.0 L, Total Bilirubin 0.50, AST 10 L, ALT 14 L, Alkaline Phosphatase 95, Total Protein 6.6, Albumin 2.5 L, Globulin 4.1, Albumin/Globulin Ratio 0.6 L 08/20/19 06:37: POC Glucose 149 H 08/20/19 11:19: POC Glucose 169 H Current Medications Acetaminophen (Tylenol) 650 mg PO Q6H PRN PRN PRN Reason: Pain Score 1-10/Temp > 100.7 F Last Admin: 08/19/19 14:02 Dose: 650 mg Documented by: Albuterol Sulfate (Ventolin Aerosols) 2.5 mg INHALATION Q2H PRN PRN PRN Reason: Shortness of Breath/Wheezing Albuterol/Ipratropium (Duoneb) 3 ml INHALATION Q6H.RT [facility] Last Admin: 08/20/19 13:07 Dose: 3 ml Documented by: Apixaban (Eliquis) 5 mg PO BID [facility] Last Admin: 05/12/20 10:18 Dose: 5 mg Documented by: Atorvastatin Calcium (Lipitor) 40 mg PO QHS [facility] Last Admin: 08/19/19 21:58 Dose: 40 mg Documented by: Bisacodyl (Dulcolax) 10 mg RECTAL DAILY PRN PRN Reason: Constipation Budesonide (Pulmicort Aerosol) 0.5 mg INHALATION BID.RT [facility] Last Admin: 08/20/19 07:08 Dose: 0.5 mg Documented by: Calamine/Phenol (Calmoseptine Ointment) 1 applic TOPICAL TID [facility]; Protocol Last Admin: 08/20/19 13:35 Dose: 1 applicatio Documented by: Carvedilol (Coreg) 12.5 mg PO BID [facility] Last Admin: 08/20/19 10:17 Dose: 12.5 mg Documented by: Dextrose (D50w Syringe) 0 gm IV X1 PRN; Protocol PRN Reason: Hypoglycemia Diltiazem HCl (Cardizem Cd) 180 mg PO DAILY [facility] Last Admin: 08/20/19 10:17 Dose: 180 mg Documented by: Ergocalciferol (Vitamin D) 50,000 unit PO WE [facility] Ferrous Sulfate (Ferrous Sulfate) 325 mg PO DAILY [facility] Last Admin: 08/20/19 10:18 Dose: 325 mg Documented by: Furosemide (Lasix) 40 mg IV BID@1000,1800 [facility] Glucagon () 1 mg IM .X1 PRN PRN Reason: Hypoglycemia Guaifenesin (Mucinex) 1,200 mg PO BID [facility] Last Admin: 08/20/19 10:19 Dose: 1,200 mg Documented by: Sodium Chloride () 1,000 mls @ 0 mls/hr IV .Q0M [facility] Sodium Chloride () 250 mls @ 15 mls/hr IV .[id number] PRN PRN Reason: Additional IVPB Infusion Last Infusion: 08/18/19 16:41 Dose: 0 mls/hr Documented by: Ceftriaxone Sodium 2 gm/ (Sodium Chloride) 50 mls @ 100 mls/hr IV Q24 [facility] Stop: 08/25/19 10:29 Last Infusion: 08/20/19 10:56 Dose: Infused Documented by: Azithromycin 500 mg/ Dextrose 255 mls @ 250 mls/hr IV Q24 [facility] Stop: 08/23/19 11:02 Last Infusion: 08/20/19 12:16 Dose: Infused Documented by: Sodium Chloride () 250 mls @ 15 mls/hr IV .[id number] PRN PRN Reason: Saline Flush Sodium Chloride () 250 mls @ 15 mls/hr IV .[id number] PRN PRN Reason: Additional IVPB Infusion Insulin Human Lispro (Humalog Kwikpen (Bkc)) 0 unit SC ACHS [facility]; Protocol Last Admin: 08/20/19 12:19 Dose: 2 u Documented by: Losartan Potassium (Cozaar) 50 mg PO DAILY [facility] Last Admin: 08/20/19 10:17 Dose: 50 mg Documented by: Magnesium Oxide (Mag-Ox 400) 400 mg PO DAILY [facility] Last Admin: 08/20/19 10:19 Dose: 400 mg Documented by: Morphine Sulfate () 2 mg IV Q3H PRN PRN PRN Reason: Pain Score 6-10/10 Multivitamins (Multivitamin) 1 tablet PO DAILY [facility] Last Admin: 08/20/19 10:19 Dose: 1 tablet Documented by: Nitroglycerin (Nitrostat) 0.4 mg SUBLINGUAL Q5M PRN PRN Reason: CARDIAC/CHEST PAIN Oxycodone HCl (Oxyir) 5 mg PO Q4H PRN PRN PRN Reason: Pain Score 4-5/10 Last Admin: 08/20/19 13:34 Dose: 5 mg Documented by: Polyethylene Glycol (Miralax) 17 gm PO DAILY PRN PRN Reason: Constipation Potassium Chloride (K-Dur) 40 meq PO BID [facility] Last Admin: 08/20/19 10:18 Dose: 40 meq Documented by: Senna/Docusate Sodium (Senokot-S, Halima-Colace) 1 tablet PO DAILY [facility] Last Admin: 08/20/19 10:20 Dose: 1 tablet Documented by: Sodium Chloride () 10 - 40 ml IV UD PRN PRN Reason: SALINE FLUSH Last Admin: 08/20/19 10:27 Dose: 10 ml Documented by: Tamsulosin HCl (Flomax) 0.4 mg PO BID@0830,1730 [facility] Last Admin: 08/20/19 10:17 Dose: 0.4 mg Documented by: STROKE Vital Signs/Narrative: Vital Signs Pulse Resp Pulse Ox 08/20/19 13:07 66 18 94 Medical Necessity - Tobacco Use Smoking Status: Never smoker Assessment/Plan All Active Problems (Last Reviewed 05/23/19 @ 10:27 by Kathie Schmidt) Acute hypoxic respiratory insufficiency (Acute) Bilateral pneumonia (Acute) History of bilateral hip replacements (Resolved) History of bilateral knee replacement (Resolved) Acute urinary tract infection (Acute) Acute urinary retention (Acute) Conjunctivitis (Acute) Asthma exacerbation (Acute) Abnormal nuclear stress test (Acute) Physical debility (Acute) Frequent falls (Acute) 83 year old M with multiple co-morbidities admitted through ER from [facility] for worsening of shortness of breath. 1. Acute on chronic hypoxic respiratory insufficiency secondary to atelectasis/possible pneumonia, slightly worsening Chest CT scan done in ER shows bibasilar atelectasis/consolidation, right more than left. Patient uses 2 L of oxygen at night along with CPAP. On IV Ceftriaxone and Zithromax (day 2) Will add trial of Lasix 40mg IV BID Encourage use of incentive spirometer 2. Chronic heart failure with preserved EF 60%, stable, not in acute exacerbation Hold oral Lasix 80 mg twice daily, HCTZ Lasix IV 40mg BID Continue on carvedilol Daily weights, strict I & Os 3. Acute on chronic normocytic normochromic anemia, stable Hb at 11.0 Will continue to monitor. Repeat blood work in am 4. Chronic A. fib, rate controlled, Continue on carvedilol, Cardizem and Eliquis. 5. Hypertension, controlled, Continue on losartan and carvedilol. 6. Recent Acute right distal fibula fracture, nondisplaced with history of bilateral TKR and bilateral hip replacement, in knee mobilizer Outpatient follow-up with orthopedics surgery recommended 7. Diabetes mellitus type 2, BS is controlled Continue on ISS 8. Rest of co-morbidities include left prefrontal chronic stroke, seizure disorder, morbid obesity BMI 44, physical debility with frequent falls, complicates care and expected difficult and delay recovery 9. DVT PPx- Eliquis 10. Code status - DNR-CCA Inpatient E&M: 89295 Subs Hosp L2
[2019-08-20 16:51] LABS: Bedside Glucose 142 mg/dL (70-110)
[2019-08-20] MEDS: Furosemide 40 MG/4 ML Vial IV (18:59)
[2019-08-20] MEDS: Atorvastatin Calcium 40 MG Tablet PO (22:02)
[2019-08-20 22:26] LABS: Bedside Glucose 137 mg/dL (70-110)
[2019-08-21 02:12] VITALS: PULSE 70; RESP 23; O2SAT 92
[2019-08-21 02:35] VITALS: BP 124/69; PULSE 74; RESP 18; TEMP 36.8; O2SAT 94
[2019-08-21] MEDS: Menthol/Lanolin/Calamine/Znox 113 GM Tube 1 APPLIC TOPICAL (06:19)
[2019-08-21 06:26] LABS: Bedside Glucose 132 mg/dL (70-110)
[2019-08-21] MEDS: oxyCODONE 5 MG Tablet PO ×2 (06:26→12:07)
[2019-08-21 06:42] LABS: ALB/GLOB Ratio 0.6 RATIO (0.9-2.4); AST(SGOT) 9 U/L (15-37); Alanine Aminotransfer ALT/SGPT 16 U/L (16-61); Albumin, Serum 2.6 g/dL (3.2-5.0); Alkaline Phosphatase 100 U/L (45-117); Anion Gap 9 (5-15); BUN 27 mg/dL (7-18); Calcium,Total 8.1 mg/dL (8.5-10.1); Chloride 102 mmol/L (98-107); EST Glomerular Filtration Rate 76 mL/min (>60); Est Glom Filt Rate - Afr Amer 92 mL/min (>60); Estimated Creatinine Clearance 59.82 ml/min; Globulin 4.2 g/dL (2.2-4.2); Glucose 137 mg/dL (74-106); Potassium 3.6 mmol/L (3.5-5.1); Protein, Total 6.8 g/dL (6.4-8.2); Sodium Level 141 mmol/L (136-145)
[2019-08-21 07:09] VITALS: PULSE 68; RESP 16; O2SAT 91
[2019-08-21] MEDS: Budesonide Respules 0.5 MG/2 ML AMPUL.NEB. INHALATION (07:09)
[2019-08-21] MEDS: Ipratropium/Albuterol Sulfate 3 ML AMPUL.NEB INHALATION (07:09)
[2019-08-21] MEDS: Tamsulosin HCl 0.4 MG Capsule PO (08:25)
--- NOTE | 2019-08-21 09:30 | RAD_ITS ---
STUDY: X-RAY CHEST REASON FOR EXAM: Male, 83 years old. FOLLOW UP FOR BILATERAL PNEUMONIA TECHNIQUE: Single AP portable view of the chest. COMPARISON: Comparison is made with prior study dated August 18, 2019. FINDINGS: Mild residual increased markings at the lung bases likely worse on the left side. There has been improved aeration in the left upper lobe. There is no demonstrated pleural abnormality. There is borderline cardiomegaly. Stable calcified left hilar lymph nodes. Normal visualized pulmonary arteries. There is atherosclerotic calcification of the aortic arch with tortuosity. There are diffuse degenerative changes of the visualized thoracic spine. Normal visualized ribs, clavicles, and shoulders. There is no demonstrated abnormality of the visualized soft tissue structures of the upper abdomen. RAD/Chest 1 View (Portable) IMPRESSION: Mild residual increased markings at the lung bases more prominent on the left side. Interval improved aeration of the left upper lobe. Electronically Signed: Joni Castro, at 9:53 EDT , Service support ,
[2019-08-21 09:56] VITALS: BP 118/79; PULSE 80; PULSE 85; RESP 20; TEMP 36.7; O2SAT 94
[2019-08-21] MEDS: Senna/Docusate Sodium 1 Tablet PO (10:15)
[2019-08-21] MEDS: dilTIAZem CD 180 MG Capsule PO (10:15)
[2019-08-21] MEDS: Furosemide 40 MG/4 ML Vial IV (10:15)
[2019-08-21] MEDS: Losartan Potassium 50 MG Tablet PO (10:15)
[2019-08-21] MEDS: Ferrous Sulfate 325 MG Tablet PO (10:16)
[2019-08-21] MEDS: Carvedilol 12.5 MG Tablet PO (10:16)
[2019-08-21] MEDS: Magnesium Oxide 400 MG Tablet PO (10:16)
[2019-08-21] MEDS: Multivitamins,Therapeutic Tablet 1 TABLET PO (10:16)
[2019-08-21] MEDS: guaiFENesin 1,200 MG Tablet 1200 MG PO (10:17)
[2019-08-21] MEDS: APIXABAN 5 MG TABLET PO (10:17)
[2019-08-21] MEDS: 0.9% Saline Lock 10 ML Syringe IV (10:24)
--- NOTE | 2019-08-21 10:44 | PCM.TXEXTCAR ---
- Diet 08/19/19 10:38 Diet: Cardiac: Calorie-Controlled Food consistency:: Regular Liquid Consistency:: Regular/Thin Is pt able to select menu?: Yes Diet Comments: low sodium How many daily calories?: 1800 calorie - Routine Orders/Code Status O2 Liters per Minute: 2 O2 Frequency: Continuous Keep PO Greater than or Equal to (%): 94 Routine Lab Work: CBC - within 3 days, BMP - within 3 days Code Status: DNRCC-A - Wound(s) Left elbow Wound Type: Skin Tear second Toe, Left foot Wound Type: Abrasion - Therapies Weight Bearing: Weight bearing as tolerated Physical Therapy: Eval and Treat Occupational Therapy: Eval and Treat - Allergies/Procedures Done in Hospital Allergies/Adverse Reactions: Allergies No Known Allergies Allergy (Verified 08/18/19 11:28) - Type of Care/Length of Stay Estimated LOS: Convalescent Care Less Than 30 days Type of Care Needed: Skilled Rehab Potential: Good Prognosis: Good - Additional Orders/Day of Discharge Additional Orders: Patient will need to follow-up with orthopedic surgery as scheduled. Encourage use of incentive spirometer. Daily weights. Fluid restriction to 1500mls/day Day of Discharge: 08/21/19 - Dietary and Speech Recommendations Dietitian Recommendations/Changes: Will d/c ONS at [facility] d/t pt refusal. Will change diet to 1800 mira Cardiac/low sodium d/t hx CKD and edema - Follow Up Care Primary Care Physician: Mario Garza MD [STAFF PHYSICIAN] - Please follow up with your Primary Care Physician in: within 2 weeks Please Follow Up With: Isak Lowe MD When: within 2 weeks
--- NOTE | 2019-08-21 10:55 | PCM.DC.SUM ---
Discharge Date and Diagnosis - Problem List Patient Problems: Active and Suspected Problems (Last Reviewed 05/23/19 @ 10:27 by Kathie Schmidt) Acute hypoxic respiratory insufficiency (Acute) Bilateral pneumonia (Acute) Date of Admission: 08/18/19 Date of Discharge: 08/21/19 - Primary Discharge Diagnosis Active and Suspected Problems (Last Reviewed 05/23/19 @ 10:27 by Kathie Schmidt) Acute hypoxic respiratory insufficiency (Acute) Possible atelectasis Possible bilateral pneumonia - Secondary Discharge Diagnosis Chronic Problems (Last Reviewed 05/23/19 @ 10:27 by Kathie Schmidt) Dyspnea (Chronic) Osteoarthritis (Chronic) Obstructive sleep apnea syndrome (Chronic) Chronic kidney disease, stage II (mild) (Chronic) Cataract (Chronic) Obesity (Chronic) bmi 44 Gastroesophageal reflux disease (Chronic) Type 2 diabetes mellitus (Chronic) Atrial flutter (Chronic) Atrial fibrillation (Chronic) Shortness of breath (Chronic) Walking difficulty due to joint disorder involving multiple sites (Chronic) Cerebrovascular disease (Chronic) 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 Electronically Signed: Vivek Garland DO at 12:55 EDT Tel [phone], Service support , Chest CTA 08/18/19 11:48 IMPRESSION: No demonstrated pulmonary embolism or arterial dissection. Dilated ascending aorta. Bibasilar atelectasis/consolidations, right more than left. Left pulmonary and hilar granulomatous calcifications. Right hepatic nodule as noted. Electronically Signed: Vivek Garland DO at 13:50 EDT Tel [phone], Service support , Chest X-Ray 08/21/19 09:30 IMPRESSION: Mild residual increased markings at the lung bases more prominent on the left side. Interval improved aeration of the left upper lobe. Electronically Signed: Joni Castro, at 9:53 EDT , Service support , None Operations: None Procedures: None Summary of Care Provided: The patient is a 83 year old M resident in a care home who was admitted with progressive shortness of breath. Patient had been feeling short of breath without any fever or chills ongoing for 3 to 4 days. He is typically on 2 L of oxygen at night. He was found to be as hypoxic and saturating 95% on 3 L of oxygen. He was managed as acute on chronic hypoxic respiratory failure, secondary to presumed pneumonia. Chest X-ray showed bilateral basilar consolidation/atelectasis, right more than left. Patient was started on empiric antibiotics. CO VID 19 PCR testing was negative. Patient continued to remain on oxygen. He was continued on antibiotics. He was encouraged to use incentive spirometer. Patient was not following through consistently with use of incentive spirometer. He was discharged on 5 more days of antibiotics making a total of 1 week of antibiotics. History of right lower extremity recent fracture and will follow-up with orthopedics in the outpatient. Patient Problems: Active and Suspected Problems (Last Reviewed 05/23/19 @ 10:27 by Kathie Schmidt) Acute hypoxic respiratory insufficiency (Acute) Bilateral pneumonia (Acute) Subjective: On the day of discharge, patient was seen and examined. He remains on 2 L of oxygen. Denied any new complaints. Objective: Physical exam: General: Alert, Oriented x3, Cooperative, No apparent distress, - - on 2L of oxygen, morbidly obese HEENT: Atraumatic, PERRLA, EOMI, Normocephalic Oral: Moist Mucosa Neck: Supple Lungs: Diminished, Wheezes Cardiovascular: Regular rate, Regular Rhythm, Normal S1, Normal S2, No murmurs Abdomen: Bowel Sounds Present, Soft, Non Tender, Non-Distended, No Hepato-splenomegaly Extremities: Edema - trace- +1 bilateral leg pain Skin: No rashes Musculoskeletal: No Tenderness to Palpation of Joints or Extremities Lymphatic: No Cervical, Supraclavicular, or Inguinal Adenopathy Neurological: Cranial nerves II-XII grossly intact, Neuro grossly intact Psych/Mental Status: Normal Affect, Appropriate - Physical Exam Vitals/I&O's: Vital Signs Temp Pulse Resp BP Pulse Ox 98.0 F 85 20 H 118/79 94 08/21/19 09:56 08/21/19 09:56 08/21/19 09:56 08/21/19 09:56 08/21/19 09:56 Oxygen Flow Rate (L/min) 2 Oxygen Delivery Method Nasal Cannula Weight: 145.8 kg Body Mass Index (BMI) 46.6 Finger Stick Blood Glucose 180 Intake and Output for Last 24 Hours 08/19/19 08/20/19 08/21/19 23:59 23:59 23:59 Intake Total 1279.58 / 1479.58 1625 / 1625 450 / 450 Output Total 200 / 200 Balance 1079.58 / 1279.58 1625 / 1625 450 / 450 Microbiology Past 72 Hours 08/18/19 15:55 Mucosa - Nose Respiratory Panel (PCR) - Final 08/18/19 12:00 Mucosa - Nasopharyngeal Coronavirus COVID-19 PCR - Final 08/18/19 16:05 Urine, Random Streptococcus pneumoniae Antigen (M - Final 08/18/19 16:05 Urine, Random Legionella Antigen - Final Laboratory Results 08/20/19 11:19: POC Glucose 169 H 08/20/19 16:45: POC Glucose 142 H 08/20/19 22:17: POC Glucose 137 H 08/21/19 06:01: Sodium 141, Potassium 3.6, Chloride 102, Carbon Dioxide 30.0, Anion Gap 9, BUN 27 H, Creatinine 1.00, Estim Creat Clear Calc 59.82, Est GFR (MDRD) Af Amer 92, Est GFR (MDRD) Non-Af 76, BUN/Creatinine Ratio 27.0 H, Glucose 137 H, Calcium 8.1 L, Total Bilirubin 0.50, AST 9 L, ALT 16, Alkaline Phosphatase 100, Total Protein 6.8, Albumin 2.6 L, Globulin 4.2, Albumin/Globulin Ratio 0.6 L 08/21/19 06:17: POC Glucose 132 H Current Medications Acetaminophen (Tylenol) 650 mg PO Q6H PRN PRN PRN Reason: Pain Score 1-10/Temp > 100.7 F Last Admin: 08/19/19 14:02 Dose: 650 mg Documented by: Albuterol Sulfate (Ventolin Aerosols) 2.5 mg INHALATION Q2H PRN PRN PRN Reason: Shortness of Breath/Wheezing Albuterol/Ipratropium (Duoneb) 3 ml INHALATION Q6H.RT [facility] Last Admin: 08/21/19 07:09 Dose: 3 ml Documented by: Apixaban (Eliquis) 5 mg PO BID [facility] Last Admin: 08/21/19 10:17 Dose: 5 mg Documented by: Atorvastatin Calcium (Lipitor) 40 mg PO QHS [facility] Last Admin: 08/20/19 22:02 Dose: 40 mg Documented by: Bisacodyl (Dulcolax) 10 mg RECTAL DAILY PRN PRN Reason: Constipation Budesonide (Pulmicort Aerosol) 0.5 mg INHALATION BID.RT [facility] Last Admin: 08/21/19 07:09 Dose: 0.5 mg Documented by: Calamine/Phenol (Calmoseptine Ointment) 1 applic TOPICAL TID [facility]; Protocol Last Admin: 08/21/19 06:19 Dose: 1 applicatio Documented by: Carvedilol (Coreg) 12.5 mg PO BID [facility] Last Admin: 08/21/19 10:16 Dose: 12.5 mg Documented by: Dextrose (D50w Syringe) 0 gm IV X1 PRN; Protocol PRN Reason: Hypoglycemia Diltiazem HCl (Cardizem Cd) 180 mg PO DAILY [facility] Last Admin: 08/21/19 10:15 Dose: 180 mg Documented by: Ergocalciferol (Vitamin D) 50,000 unit PO WE [facility] Last Admin: 08/21/19 10:18 Dose: 50,000 unit Documented by: Ferrous Sulfate (Ferrous Sulfate) 325 mg PO DAILY [facility] Last Admin: 08/21/19 10:16 Dose: 325 mg Documented by: Furosemide (Lasix) 40 mg IV BID@1000,1800 [facility] Last Admin: 08/21/19 10:15 Dose: 40 mg Documented by: Glucagon () 1 mg IM .X1 PRN PRN Reason: Hypoglycemia Guaifenesin (Mucinex) 1,200 mg PO BID [facility] Last Admin: 08/21/19 10:17 Dose: 1,200 mg Documented by: Sodium Chloride () 1,000 mls @ 0 mls/hr IV .Q0M [facility] Sodium Chloride () 250 mls @ 15 mls/hr IV .[id number] PRN PRN Reason: Additional IVPB Infusion Last Admin: 08/21/19 10:15 Dose: 15 mls/hr Documented by: Ceftriaxone Sodium 2 gm/ (Sodium Chloride) 50 mls @ 100 mls/hr IV Q24 [facility] Stop: 08/25/19 10:29 Last Admin: 08/21/19 10:15 Dose: 100 mls/hr Documented by: Azithromycin 500 mg/ Dextrose 255 mls @ 250 mls/hr IV Q24 [facility] Stop: 08/23/19 11:02 Last Infusion: 08/20/19 12:16 Dose: Infused Documented by: Sodium Chloride () 250 mls @ 15 mls/hr IV .[id number] PRN PRN Reason: Saline Flush Sodium Chloride () 250 mls @ 15 mls/hr IV .[id number] PRN PRN Reason: Additional IVPB Infusion Insulin Human Lispro (Humalog Kwikpen (Bkc)) 0 unit SC [facility]; Protocol Last Admin: 08/21/19 06:18 Dose: Not Given Documented by: Losartan Potassium (Cozaar) 50 mg PO DAILY [facility] Last Admin: 08/21/19 10:15 Dose: 50 mg Documented by: Magnesium Oxide (Mag-Ox 400) 400 mg PO DAILY [facility] Last Admin: 08/21/19 10:16 Dose: 400 mg Documented by: Morphine Sulfate () 2 mg IV Q3H PRN PRN PRN Reason: Pain Score 6-10/10 Multivitamins (Multivitamin) 1 tablet PO DAILY [facility] Last Admin: 08/21/19 10:16 Dose: 1 tablet Documented by: Nitroglycerin (Nitrostat) 0.4 mg SUBLINGUAL Q5M PRN PRN Reason: CARDIAC/CHEST PAIN Oxycodone HCl (Oxyir) 5 mg PO Q4H PRN PRN PRN Reason: Pain Score 4-5/10 Last Admin: 08/21/19 06:26 Dose: 5 mg Documented by: Polyethylene Glycol (Miralax) 17 gm PO DAILY PRN PRN Reason: Constipation Potassium Chloride (K-Dur) 40 meq PO BID [facility] Last Admin: 08/21/19 10:16 Dose: 40 meq Documented by: Senna/Docusate Sodium (Senokot-S, Halima-Colace) 1 tablet PO DAILY [facility] Last Admin: 08/21/19 10:15 Dose: 1 tablet Documented by: Sodium Chloride () 10 - 40 ml IV UD PRN PRN Reason: SALINE FLUSH Last Admin: 08/21/19 10:24 Dose: 20 ml Documented by: Tamsulosin HCl (Flomax) 0.4 mg PO BID@0830,1730 [facility] Last Admin: 08/21/19 08:25 Dose: 0.4 mg Documented by: Discharge Diet: Low fat/ Low Cholesterol, 2000 mg Sodium Diet, Carb Control Diet Discharge Activity: Return to Normal Activity Home Medications: Medications to take at Discharge Multivitamins,Therapeutic [Multivitamin] 1 tab PO DAILY 09/10/14 Calcium Citrate/Vitamin D3 [Calcium Citrate - Vit D Tablet] 1 tab PO DAILY 05/11/15 Ergocalciferol [Vitamin D] 50,000 unit PO WE 05/11/15 Magnesium Oxide [Mag-Ox 400] 400 mg PO DAILY 05/11/15 Diltiazem CD [Cardizem CD] 180 mg PO DAILY #30 cap 01/13/17 Acetaminophen [Tylenol] 650 mg PO BID 11/14/18 Apixaban [Eliquis] 5 mg PO BID 11/14/18 Atorvastatin Calcium [Lipitor] 40 mg PO QHS 11/14/18 Cod Liver Oil 1 ea PO DAILY 11/14/18 Docusate Sodium [Colace] 100 mg PO DAILY 11/14/18 Furosemide [Lasix] 80 mg PO BID 11/14/18 Losartan Potassium 50 mg PO DAILY 11/14/18 Oxycodone HCl 5 mg PO Q4H PRN PRN 11/14/18 Oxycodone HCl [Roxicodone] 5 mg PO QHS 11/14/18 Potassium Chloride [K-Dur] 40 meq PO BID 11/14/18 Tamsulosin HCl [Flomax] 0.4 mg PO BID 11/14/18 Carvedilol 12.5 mg PO BID #0 11/16/18 Ipratropium/Albuterol Sulfate [Duoneb] 3 ml INHALATION Q4H PRN PRN ampul.neb 11/16/18 budesonide 0.5 mg/2 mL suspension for nebulization 0.5 mg INHALATION BID #60 ml 05/23/[address] DAILY PRN 08/16/19 Calcium Carbonate [Tums] 600 mg PO Q2H PRN PRN 08/16/19 Ferrous Sulfate 325 mg PO DAILY 08/16/19 Hydrochlorothiazide [Hctz] 25 mg PO DAILY 08/16/19 Magnesium Hydroxide [Milk Of Magnesia] 30 ml PO BID PRN 08/16/19 Polyethylene Glycol 3350 [Miralax] 17 gm PO DAILY PRN 08/16/19 Sennosides/Docusate Sodium [Senna Plus 8.6-50 mg Tablet] 1 ea PO DAILY 08/16/19 Amoxicillin/Potassium Clav [Augmentin 875-125 Tablet] 1 ea PO BID 5 Days #10 tab 08/21/19 Guaifenesin [Mucinex] 1,200 mg PO BID PRN 10 Days #10 tab 08/21/19 Following Prescrptions Were Given to Patient: Amoxicillin/Potassium Clav [Augmentin 875-125 Tablet] 1 ea PO BID 5 Days #10 tab Primary Care Physician: Mario Garza MD [STAFF PHYSICIAN] - Please follow up with your Primary Care Physician in: within 2 weeks Please Follow Up With: Isak Lowe MD When: within 2 weeks Disposition: Group Home facility Minutes spent on discharge:: 40 Patient Condition:: Stable Medical Necessity - Tobacco Use Smoking Status: Never smoker Tobacco Use: Non-smoker Meaningful Use Info Meaningful Use Diagnoses (Choose all that apply): None applicable Inpatient E&M: 54309 Disch Hosp
--- NOTE | 2019-08-21 11:24 | CASEMGMT ---
Social Work Note Pt is medically ready for discharge today back to [facility]. KIM faxed discharge paperwork to [facility] including transfer to extended care facility, signed medication list, any scripts and COVID 19 transfer communication tool that had previously been completed for pt. KIM placed a call to [employer] and arranged for bariatric cot transportation at 1:00pm. KIM completed transportation form and placed on SNF folder and copy on pt's chart. KIM updated pt on discharge and transportation time. KIM asked pt if this worker could call his or daughter to update on discharge and transportation time and pt denied states he will call his family. KIM updated RN on transportation time. KIM placed a call to Nohelia at [facility] and updated him on discharge and transportation time. Nohelia states that pt had outpatient ortho appointment scheduled for tomorrow at [facility] and asked if ortho could see pt while he is at [facility] today. KIM updated Nohelia that SW reviewed notes and orders and ortho was not consulted to see pt this admission as pt was admitted for pneumonia not the femur fracture. Nohelia states that it is not that convenient to be transporting pt to and from [facility] multiple times within a few days. KIM informed Nohelia that this worker understands that it is not convenient but again reiterated that pt's ortho appointment tomorrow is an outpatient appointment, ortho was not consulted during pt's admission to [facility] this visit, so pt will need to follow up with ortho tomorrow as an outpatient which is also listed on pt's transfer to extended care document. Nohelia states understanding. KIM discussed case with Ita ARCHIBALD lead KIM who agrees that pt's outpatient ortho appointment was already scheduled for tomorrow, ortho was not consulted while pt was at [facility] for pneumonia so pt will just need to be seen tomorrow as an outpatient at ortho appointment. 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
[2019-08-21] MEDS: Insulin Lispro 100 UNIT/ML INSULN.PEN SC (12:00)
--- NOTE | 2019-08-21 12:10 | PHA.DC.MR ---
Pharmacy Service has performed discharge medication reconciliation for this patient. The patient's discharge medication list was reviewed for discrepancies and discrepancies were resolved. Home Medications Multivitamins,Therapeutic [Multivitamin] 1 tab PO DAILY 09/10/14 Calcium Citrate/Vitamin D3 [Calcium Citrate - Vit D Tablet] 1 tab PO DAILY 05/11/15 Ergocalciferol [Vitamin D] 50,000 unit PO WE 05/11/15 Magnesium Oxide [Mag-Ox 400] 400 mg PO DAILY 05/11/15 Diltiazem CD [Cardizem CD] 180 mg PO DAILY #30 cap 01/13/17 Acetaminophen [Tylenol] 650 mg PO BID 11/14/18 Apixaban [Eliquis] 5 mg PO BID 11/14/18 Atorvastatin Calcium [Lipitor] 40 mg PO QHS 11/14/18 Cod Liver Oil 1 ea PO DAILY 11/14/18 Docusate Sodium [Colace] 100 mg PO DAILY 11/14/18 Furosemide [Lasix] 80 mg PO BID 11/14/18 Losartan Potassium 50 mg PO DAILY 11/14/18 Oxycodone HCl 5 mg PO Q4H PRN PRN 11/14/18 Oxycodone HCl [Roxicodone] 5 mg PO QHS 11/14/18 Potassium Chloride [K-Dur] 40 meq PO BID 11/14/18 Tamsulosin HCl [Flomax] 0.4 mg PO BID 11/14/18 Carvedilol 12.5 mg PO BID #0 11/16/18 Ipratropium/Albuterol Sulfate [Duoneb] 3 ml INHALATION Q4H PRN PRN ampul.neb 11/16/18 budesonide 0.5 mg/2 mL suspension for nebulization 0.5 mg INHALATION BID #60 ml 05/23/19 Bisacodyl 10 mg [place] DAILY PRN 08/16/19 Calcium Carbonate [Tums] 600 mg PO Q2H PRN PRN 08/16/19 Ferrous Sulfate 325 mg PO DAILY 08/16/19 Hydrochlorothiazide [Hctz] 25 mg PO DAILY 08/16/19 Magnesium Hydroxide [Milk Of Magnesia] 30 ml PO BID PRN 08/16/19 Polyethylene Glycol 3350 [Miralax] 17 gm PO DAILY PRN 08/16/19 Sennosides/Docusate Sodium [Senna Plus 8.6-50 mg Tablet] 1 ea PO DAILY 08/16/19 Amoxicillin/Potassium Clav [Augmentin 875-125 Tablet] 1 ea PO BID 5 Days #10 tab 08/21/19 Guaifenesin [Mucinex] 1,200 mg PO BID PRN 10 Days #10 tab 08/21/19
[2019-08-21 12:25] LABS: Bedside Glucose 194 mg/dL (70-110)
--- NOTE | 2019-08-21 12:44 | NURSING ---
report called to Domi receiving nurse at [facility].
== END 2019-08-21 13:05 | DRG 193 ==
LOC: ED 13:50 → MS3 08-19 07:16 → ICU 08-19 10:20
PROVIDERS: Admitting Provider Internal Medicine; Emergency Provider Emergency Medicine; PCP Orthopaedic Surgery; Visit Provider Internal Medicine
DX: J18.9 Pneumonia, unspecified organism (principal); J96.21 Acute and chronic respiratory failure with hypoxia; J44.0 Chronic obstructive pulmonary disease with (acute) lower respiratory infection; J98.11 Atelectasis; Z68.41 Body mass index [BMI] 40.0-44.9, adult; I48.92 Unspecified atrial flutter; I48.20 Chronic atrial fibrillation, unspecified; I13.0 Hypertensive heart and chronic kidney disease with heart failure and stage 1 through stage 4 chronic kidney disease, or unspecified chronic kidney disease; I50.32 Chronic diastolic (congestive) heart failure; M19.90 Unspecified osteoarthritis, unspecified site; G47.33 Obstructive sleep apnea (adult) (pediatric); K21.9 Gastro-esophageal reflux disease without esophagitis; E11.22 Type 2 diabetes mellitus with diabetic chronic kidney disease; N18.2 Chronic kidney disease, stage 2 (mild); D63.1 Anemia in chronic kidney disease; G40.909 Epilepsy, unspecified, not intractable, without status epilepticus; E66.01 Morbid (severe) obesity due to excess calories; N40.0 Benign prostatic hyperplasia without lower urinary tract symptoms; S82.831A Other fracture of upper and lower end of right fibula, initial encounter for closed fracture; W19.XXXA Unspecified fall, initial encounter; Y93.89 Activity, other specified; Y92.129 Unspecified place in nursing home as the place of occurrence of the external cause; R29.6 Repeated falls; E11.36 Type 2 diabetes mellitus with diabetic cataract; H26.9 Unspecified cataract; Z66 Do not resuscitate; Z96.643 Presence of artificial hip joint, bilateral; Z96.653 Presence of artificial knee joint, bilateral; Z86.73 Personal history of transient ischemic attack (TIA), and cerebral infarction without residual deficits; Z79.01 Long term (current) use of anticoagulants; Z79.02 Long term (current) use of antithrombotics/antiplatelets; Z79.51 Long term (current) use of inhaled steroids; Z79.4 Long term (current) use of insulin; Z79.899 Other long term (current) drug therapy
CPT/HCPCS: 36415; 71045; 71275; 73552; 73560; 80048; 80053; 81001; 82248; 82962; 82977; 83605; 83735; 83880; 84145; 84443; 84484; 85025; 85610; 86140; 87449; 87633; 87635; 87641; 93005; 94640; 94660; 94667; 94668; 97110; 97162; 97166; 97530; 99251; 99285; G2023; J7030; J7040; J7050; Q9967; A4216; G0463; J0696; J1940; U0002; U0004

== ENCOUNTER → 2020-01-14 12:54 | Outpatient (CLI) | payer MEDICARE, OTHER, SELFPAY ==
[2017-01-12 13:56] VITALS: BMI 46.7
[2019-05-23 06:21] VITALS: BMI 45.8
[2019-08-18 14:47] VITALS: BMI 46.6
--- NOTE | 2020-01-15 08:22 | PFT ---
INTRODUCTION: The patient is an 84-year-old male who presents for pulmonary function studies secondary to a diagnosis of shortness of breath. Respiratory therapy reported good patient effort. However, the patient was unable to transfer from his wheelchair to the plethysmography box. Bronchodilators were used during testing. INTERPRETATION: Forced expiration spirometry demonstrates the presence of a severe large airways obstructive ventilatory defect. There was no significant response to aerosolized bronchodilators. Spirograms are of fair quality and do not plateau indicating slow emptying of the lungs. Body plethysmography was unable to be performed. Diffusing capacity by single breath CO is severely reduced at 38% of predicted. 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 Lung volumes were unable to be obtained.
== END ==
PROVIDERS: PCP Orthopaedic Surgery; Referring Provider Internal Medicine Critical Care Medicine; Visit Provider Internal Medicine Critical Care Medicine
DX: R06.02 Shortness of breath (principal)
CPT/HCPCS: 94060; 94729

== ENCOUNTER 2020-01-27 20:02 | Inpatient (IN) | payer MEDICARE, OTHER, SELFPAY ==
[2017-01-12 13:56] VITALS: BMI 46.7
[2020-01-22 10:52] VITALS: BMI 45.2
[2020-01-27] VITALS (11 sets, daily range): BP systolic 103–138; BP diastolic 68–100; PULSE 32–97; RESP 22–91; TEMP 36.8–37.2; O2SAT 89–96; BMI 46.7
--- NOTE | 2020-01-27 20:11 | EKG12_ITS ---
Test Reason : SOB Blood Pressure : / mmHG Vent. Rate : 084 BPM Atrial Rate : 096 BPM P-R Int : 000 ms QRS Dur : 086 ms QT Int : 372 ms P-R-T Axes : 000 -42 002 degrees QTc Int : 439 ms Atrial fibrillation Left axis deviation Low voltage QRS Inferior infarct , age undetermined Anterolateral infarct , age undetermined Abnormal ECG Confirmed by ULI AYALA, TIM ([id number]), editor newspaper CHEY EVANS ([id number]) on 02/03/2020 11:45:22 AM Referred By: Tim Alcocer Confirmed By:TIM MCNALLY MD
[2020-01-27 20:35] LABS: Absolute Lymphocyte Count 1.13 X10^3/uL (0.83-4.51); Absolute Neutrophil Count 2.7 X10^3/uL (2.0-7.7); Basophil# 0.02 X10^3/uL; Basophil% 0.5 % (0-1); Hematocrit 49.9 % (40-54); Hemoglobin 14.6 g/dL (13.0-16.5); Lymphocyte # 1.13 X10^3/ul (4.0); Mean Corp Hgb Conc 29.3 g/dL (32-36); Mean Corpuscular Hgb 26.5 pg (27.0-32.0); Mean Corpuscular Volume 90.7 fL (80-94); Mean Platelet Vol. 10.3 fl (6.2-12.0); Monocyte# 0.52 X10^3/uL; NRBC Flagged by Analyzer 0 % (0-5); Neutrophil # 2.65 X10^3/uL (2.7-7.7); Platelet Count 160 K/mm3 (150-450); RBC Distribution Width CV 17.8 % (11.6-14.6); White Blood Count 4.3 K/mm3 (4.4-11.0)
--- NOTE | 2020-01-27 20:40 | RAD_ITS ---
STUDY: X-RAY CHEST REASON FOR EXAM: Male, 84 years old. POSITIVE COVID. INCREASED SOB. TECHNIQUE: Single AP portable view of the chest. COMPARISON: 08/21/2019. FINDINGS: Low lung volumes. No pleural effusion. Lung alvarez are clear. Calcified nodes in the left lung hilum. Normal visualized pulmonary arteries. Normal visualized aortic arch and descending thoracic aorta. Soft tissues and bony structures are unremarkable. RAD/Chest 1 View (Portable) IMPRESSION: No acute findings. Electronically Signed: Martha Monet MD at 21:17 EDT Tel , Service support ,
--- NOTE | 2020-01-27 20:40 | ED.VIS.GEN ---
History of Present Illness Chief Complaint: Shortness of Breath Informant: Patient Narrative: 84-year-old male with past medical history of atrial fibrillation, hypertension, diabetes presents with concern for shortness of breath. Patient was diagnosed with coronavirus 3 days ago. Patient has had symptoms for approximately 5 days. States that he became acutely short of breath today. Per EMS patient was approximately 85% on room air. Denies any chest pain, nausea, vomiting, abdominal pain, urinary symptoms. Past Medical History - Allergies and Home Meds Allergies/Adverse Reactions: Allergies No Known Allergies Allergy (Verified 01/22/20 10:53) Past Medical History: - - atrial fibrillation, HTN, HLD, DMII Surgical History: total hip arthroplasty, total knee arthroplasty, tonsillectomy, - - Back surgery Lives: With Family Smoking Status: Unknown if ever smoked Alcohol: None Drugs: None - Family History Sibling Family History: Family History (Last Reviewed 01/22/20 @ 10:53 by Mariza Chase) Brother Cancer Father Heart disease Family History: Reports: Cancer, - Maternal Family History: Family History (Last Reviewed 01/22/20 @ 10:53 by Mariza Chase) Brother Cancer Father Heart disease Family History: Reports: Diabetes Paternal Family History: Family History (Last Reviewed 01/22/20 @ 10:53 by Mariza Chase) Brother Cancer Father Heart disease Family History: Reports: Unknown Review of Systems General: Reports: Malaise. Denies: Chills, Fever, Sweats Eyes: Denies: Visual changes - bilaterally, Diplopia ENT: Denies: Rhinorrhea, Sore throat Cardiovascular: Denies: Chest pain, Palpitations Respiratory: Reports: Dyspnea, Cough. Denies: Dyspnea on exertion Gastrointestinal: Denies: Abdominal pain, Nausea, Vomiting, Diarrhea, Melena, Hematochezia Genitourinary: Denies: Dysuria, Hematuria, Frequency Musculoskeletal: Denies: Back pain, Extremity Pain Skin: Denies: Rash, Wounds Neurological: Denies: Headache, Weakness, Numbness Physical Exam Vital Signs/Narrative: Vital Signs Temp Pulse Resp BP Pulse Ox 01/27/20 20:25 98.4 F 87 36 H 138/98 H 95 01/27/20 20:10 98.2 F 91 36 H 135/96 H 92 01/27/20 20:04 98.2 F 32 L 91 H 135/96 H 89 Inital Vital Signs reviewed: Yes General: Well nourished, Well developed, No Acute Distress Head: Normocephalic, Atraumatic Eyes: Perrl, EOMI ENT: Moist mucous membranes, No rhinorrhea Neck: Supple, Nontender Cardiovascular: Regular rate, Regular rhythm, No murmurs Respiratory: Chest nontender, Diminished, Retractions Abdomen: Soft, Nontender, Nondistended, Normal bowel sounds Back: Nontender, Normal Inspection Extremities: Nontender, No edema Skin: Normal color, No rash Neurological: Alert, Oriented x3, Cranial nerves II-XII grossly intact, Normal Strength, Normal Sensation Psychological: Normal affect, Normal Mood Diagnostic/Tx/Re-eval Chest X-Ray - ED: 1 View, Normal Clinical Impression(s) from Imaging Studies Chest X-Ray 01/27/20 20:40 IMPRESSION: No acute findings. Electronically Signed: Martha Monet MD at 21:17 EDT Tel , Service support , Laboratory Data 01/27/20 01/27/20 01/27/20 20:11 20:15 20:15 WBC 4.3 L RBC 5.50 Hgb 14.6 Hct 49.9 MCV 90.7 MCH 26.5 L MCHC 29.3 L RDW Std Deviation 58.0 H RDW Coeff of Germán 17.8 H Plt Count 160 MPV 10.3 Immature Gran % (Auto) 0.500 Neut % (Auto) 61.0 Lymph % (Auto) 26.0 Richardson % (Auto) 12.0 H Eos % (Auto) 0.0 Baso % (Auto) 0.5 Absolute Neuts (auto) 2.7 Absolute Lymphs (auto) 1.13 Nucleated RBC % 0 PT 19.6 H INR 1.7 APTT 47.6 H D-Dimer Quant (PE/DVT) 1.90 H* Specimen Type Sample Site pH Bicarbonate Actual Total CO2 Base Excess O2 Saturation ABG pCO2 ABG pO2 O2 Delivery Device Liter Flow Sodium Cancelled Potassium Cancelled Chloride Cancelled Carbon Dioxide Cancelled Anion Gap Cancelled BUN Cancelled Creatinine Cancelled Estim Creat Clear Calc Cancelled Est GFR (MDRD) Af Amer Cancelled Est GFR (MDRD) Non-Af Cancelled BUN/Creatinine Ratio Cancelled Glucose Cancelled Lactic Acid Calcium Cancelled Total Bilirubin Cancelled AST Cancelled ALT Cancelled Alkaline Phosphatase Cancelled Troponin I Cancelled Total Protein Cancelled Albumin Cancelled Globulin Cancelled Albumin/Globulin Ratio Cancelled Urine Color Urine Clarity Urine pH Ur Specific [place] Urine Protein Urine Glucose (UA) Urine Ketones Urine Occult Blood Urine Nitrite Urine Bilirubin Urine Urobilinogen Ur Leukocyte Esterase Urine RBC Urine WBC Ur Squamous Epith Cells Amorphous Sediment Urine Bacteria Urine Mucus 01/27/20 01/27/20 01/27/20 20:15 20:44 20:55 WBC RBC Hgb Hct MCV MCH MCHC RDW Std Deviation RDW Coeff of Germán Plt Count MPV Immature Gran % (Auto) Neut % (Auto) Lymph % (Auto) Richardson % (Auto) Eos % (Auto) Baso % (Auto) Absolute Neuts (auto) Absolute Lymphs (auto) Nucleated RBC % PT INR APTT D-Dimer Quant (PE/DVT) Specimen Type ART Sample Site L Radial pH 7.39 Bicarbonate Actual 31.2 H Total CO2 33 Base Excess 6 H O2 Saturation 94 L ABG pCO2 52.3 H ABG pO2 74 L O2 Delivery Device Cannula Liter Flow 6.0 Sodium 144 Potassium 3.9 Chloride 107 Carbon Dioxide 32.0 Anion Gap 5 BUN 19 H Creatinine 0.96 Estim Creat Clear Calc 61.26 Est GFR (MDRD) Af Amer 97 Est GFR (MDRD) Non-Af 80 BUN/Creatinine Ratio 19.8 Glucose 118 H Lactic Acid 1.1 Calcium 8.4 L Total Bilirubin 0.40 AST 24 ALT 17 Alkaline Phosphatase 148 H Troponin I 0.070 H Total Protein 6.8 Albumin 2.7 L Globulin 4.1 Albumin/Globulin Ratio 0.7 L Urine Color Urine Clarity Urine pH Ur Specific [place] Urine Protein Urine Glucose (UA) Urine Ketones Urine Occult Blood Urine Nitrite Urine Bilirubin Urine Urobilinogen Ur Leukocyte Esterase Urine RBC Urine WBC Ur Squamous Epith Cells Amorphous Sediment Urine Bacteria Urine Mucus 01/27/20 21:15 WBC RBC Hgb Hct MCV MCH MCHC RDW Std Deviation RDW Coeff of Germán Plt Count MPV Immature Gran % (Auto) Neut % (Auto) Lymph % (Auto) Richardson % (Auto) Eos % (Auto) Baso % (Auto) Absolute Neuts (auto) Absolute Lymphs (auto) Nucleated RBC % PT INR APTT D-Dimer Quant (PE/DVT) Specimen Type Sample Site pH Bicarbonate Actual Total CO2 Base Excess O2 Saturation ABG pCO2 ABG pO2 O2 Delivery Device Liter Flow Sodium Potassium Chloride Carbon Dioxide Anion Gap BUN Creatinine Estim Creat Clear Calc Est GFR (MDRD) Af Amer Est GFR (MDRD) Non-Af BUN/Creatinine Ratio Glucose Lactic Acid Calcium Total Bilirubin AST ALT Alkaline Phosphatase Troponin I Total Protein Albumin Globulin Albumin/Globulin Ratio Urine Color Yellow Urine Clarity Sl. Cloudy Urine pH 6.0 Ur Specific [place] 1.015 Urine Protein 30 H Urine Glucose (UA) Normal Urine Ketones Negative Urine Occult Blood 25 H Urine Nitrite Negative Urine Bilirubin Negative Urine Urobilinogen Normal Ur Leukocyte Esterase 500 H Urine RBC 0-5 SEEN Urine WBC 50-100 SEEN Ur Squamous Epith Cells 0-5 SEEN Amorphous Sediment 1+ URATE Urine Bacteria RARE Urine Mucus 0 SEEN - Rhythm Strip Rhythm Strip: A-fib Rate: 84 Ectopy: None - EKG Initial EKG Interpretation: Atrial Fibrillation - She will fibrillation at 84 bpm. QTC of 439 ms. Left axis deviation. Nonspecific ST changes. - Medical Decision Making Per EMS patient 85% on room air. Patient placed on nonrebreather by EMS. Weaned to nasal cannula but cannot maintain saturations above 90% on 6 L. Patient was placed on Venturi mask at 50%. Lab work within normal limit other than elevated D-dimer. Evidence of white blood cells and leukocytes in the urine. Patient has no urinary symptoms. Urine sent for culture. Blood cultures pending. Lactic acid negative. Spoke with hospitalist who is agreeable with admission to the ICU. He will follow the CT. No evidence of central pulmonary embolism on my review. Patient admitted in stable condition. Impression: 1. COVID Pneumonia 2. Hypoxemia 3. Acute hypoxic respiratory failure ED Disposition - Plan for ED Patient: Disposition: Acute Care [facility]
[2020-01-27 20:50] LABS: Base Excess 6 mmol/L (-2 to +2); Bicarbonate 31.2 mmol/L (22-26); Blood Gas Specimen Type ART; O2 Delivery Device Cannula; PO2 74 mmHG (75-100); SITE L Radial; SO2 94 % (95-99); Total Carbon Dioxide 33 mmol/L; pCO2 52.3 mmHg (35-45); pH 7.39 (7.35-7.45)
--- NOTE | 2020-01-27 20:53 | ED.RN ---
Spo2 decreased to 90-91% on 6L NC. Placed on 50% venturi mask
[2020-01-27 20:55] LABS: International Normalized Ratio 1.7; Partial Thromboplast Time 47.6 Seconds (24.1-36.2); Prothrombin Time (Protime)PT. 19.6 SECONDS (11.7-14.9)
--- NOTE | 2020-01-27 21:14 | CT_ITS ---
STUDY: CTA CHEST REASON FOR EXAM: Male, 84 years old. ELEVATED D-DIMER, + COVID, INCREASED SOB, HX ASTHMA, COPD, EMPHYSEMA, DIAB RADIATION DOSAGE (If Supplied By Facility): CTDIvol = ( 38.78 ) mGy, DLP = ( 507.69 ) mGycm TECHNIQUE: The examination was performed with the intravenous administration of IV 100mL Isovue-370. Post-processing of the angiographic images was performed, with multiplanar reformation and 3D reconstruction. Individualized dose optimization techniques were used for this CT. COMPARISON: Chest x-ray from today and CTA chest 08/18/2019 FINDINGS: Normal enhancement of the main pulmonary artery and right and left pulmonary arteries. Normal enhancement of the bilateral peripheral pulmonary arteries. There is no demonstrated pulmonary embolism. Normal thoracic aorta and visualized great vessels. There is no demonstrated aortic dissection. Moderate cardiomegaly and calcific coronary artery disease. Normal mediastinum. Calcified hilar nodes on the left. Normal visualized trachea and bronchi. Bibasilar airspace disease. Calcified granuloma left upper lobe. Normal pulmonary parenchyma. Small bilateral pleural effusions. Normal chest wall structures. Normal osseous structures. Normal visualized upper abdomen. CT/CTA Chest W/WO Contrast IMPRESSION: Bibasilar airspace disease. Small bilateral pleural effusions. Coronary artery disease. Electronically Signed: Harjit Downs MD at 23:45 EDT , Service support ,
[2020-01-27 21:42] LABS: Lactic Acid 1.1 mmol/L (0.4-1.9)
[2020-01-27 21:43] LABS: Mucous, Urine 0 SEEN /hpf (<or=2+)
[2020-01-27 21:48] LABS: Color, Urine Yellow (Yellow); Glucose, Dipstick Normal (Normal); Ketone-Dipstick Negative (Negative); Leukocyte Esterase-Dipstick 500 /ul (Negative); Nitrite-Dipstick Negative (Negative); Occult Blood-Urine 25 /ul (Negative); Protein-Dipstick 30 mg/dl (Negative); Specific Gravity, Urine 1.015 (1.002-1.030); Urine Bilirubin Dipstick Negative (Negative); Urine Clarity Sl. Cloudy (Clear); Urine Urobilinogen Normal (Normal)
[2020-01-27 21:55] LABS: Amorphous Sediment 1+ URATE; Bacteria RARE /hpf (None Seen); Red Blood Cells-Urine 0-5 SEEN /hpf (0-5); Squamous Epithelial Cells - UA 0-5 SEEN /hpf (0-5); White Blood Cells 50-100 SEEN /hpf (0-5)
[2020-01-27 22:41] LABS: ALB/GLOB Ratio 0.7 RATIO (0.9-2.4); AST(SGOT) 24 U/L (15-37); Alanine Aminotransfer ALT/SGPT 17 U/L (16-61); Albumin, Serum 2.7 g/dL (3.2-5.0); Alkaline Phosphatase 148 U/L (45-117); Anion Gap 5 (5-15); BUN 19 mg/dL (7-18); BUN/Creat Ratio 19.8 RATIO (10-20); Calcium,Total 8.4 mg/dL (8.5-10.1); Chloride 107 mmol/L (98-107); Creatinine, Serum 0.96 mg/dL (0.70-1.30); EST Glomerular Filtration Rate 80 mL/min (>60); Est Glom Filt Rate - Afr Amer 97 mL/min (>60); Estimated Creatinine Clearance 61.26 ml/min; Globulin 4.1 g/dL (2.2-4.2); Glucose 118 mg/dL (74-106); Potassium 3.9 mmol/L (3.5-5.1); Protein, Total 6.8 g/dL (6.4-8.2); Sodium Level 144 mmol/L (136-145)
[2020-01-27] MEDS: dexAMETHasone 4 MG/ML Vial 6 MG IV (23:48)
--- NOTE | 2020-01-27 23:50 | HP.PCM_ITS ---
Problem List (1) COVID-19 Status: Acute (2) Acute hypoxic respiratory insufficiency Status: Acute (3) Dyspnea Status: Acute Qualifiers: Dyspnea type: shortness of breath Qualified Code(s): R06.02 - Shortness of breath (4) History of bilateral hip replacements Status: Resolved (5) History of bilateral knee replacement Status: Resolved (6) Obstructive sleep apnea syndrome Status: Chronic (7) Chronic kidney disease, stage II (mild) Status: Chronic (8) Obesity Status: Chronic Qualifiers: Obesity type: due to excess calories Obesity classification: adult class 3 (BMI >= 40) Serious obesity comorbidity presence: with serious comorbidity Body mass index: BMI 45.0-49.9 Qualified Code(s): E66.01 - Morbid (severe) obesity due to excess calories; Z68.42 - Body mass index (BMI) 45.0-49.9, adult Comment: bmi 44 (9) Gastroesophageal reflux disease Status: Chronic (10) Type 2 diabetes mellitus Status: Chronic (11) Atrial fibrillation Status: Chronic (12) Physical debility Status: Chronic (13) Frequent falls Status: Acute (14) Cerebrovascular disease Status: Chronic Comment: 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 The patient has complex medical history including obesity, hypertension, cardiovascular disease and asthma. The patient requires Venturi mask supplemental oxygen to maintain his pulse oxygenation within normal range but continues to breathe at a rate of 24 to 26 breaths/min. Decadron was initiated in the emergency room per protocol and patient will be admitted to the ICU for further management of COVID-19. 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 Coli UTI Cx. Acute urinary retention (Acute) R33.8 Crews placed w/ E. Coli UCx, discontinued prior to discharge. Plan outpatient Urology consultation and increased flomax. Conjunctivitis (Acute) H10.9 L Eye. 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 small vessel ischemic Seizure (Chronic) Benign essential hypertension (Chronic) I10 Allergies No Known Allergies Allergy (Verified 01/22/20 10:53) Home Medications: Ambulatory Orders Medication Instructions Recorded Acetaminophen [Tylenol] 650 mg PO BID 01/27/20 Apixaban [Eliquis] 5 mg PO BID 01/27/20 Budesonide [Pulmicort] 0.5 mg IH BID 01/27/20 Calcium Carbonate/Vitamin D3 1 tab PO DAILY 01/27/20 [Calcium 600-Vit D3 200 Tablet] Carvedilol 6.25 mg PO BID 01/27/20 Diltiazem HCl [Diltiazem ER] 180 mg PO DAILY 01/27/20 Ergocalciferol [Vitamin D] 50,000 unit PO Q7D 01/27/20 Ferrous Sulfate 325 mg PO DAILY 10/19/20 Furosemide [Lasix] 80 mg PO BID 01/27/20 Guaifenesin [Mucinex] 1,200 mg PO BID 01/27/20 Potassium Chloride [K-Dur] 40 meq PO BID 01/27/20 Tamsulosin HCl [Flomax] 0.4 mg PO DAILY 01/27/20 Surgical History: Surgical History (Last Reviewed 01/22/20 @ 10:53 by Mariza Chase) History of bilateral hip replacements (Resolved) Z96.643 History of bilateral knee replacement (Resolved) Z96.653 Surgical History: total hip arthroplasty, total knee arthroplasty, tonsillectomy, - - Back surgery Psychiatric History: No pertinent psych hx Lives: With Family Smoking Status: Unknown if ever smoked Alcohol: None Drugs: None - *Family History Maternal Family History: Family History (Last Reviewed 01/22/20 @ 10:53 by Mariza Chase) Brother Cancer Father Heart disease History Items: Diabetes Paternal Family History: Family History (Last Reviewed 01/22/20 @ 10:53 by Mariza Chase) Brother Cancer Father Heart disease History Items: Unknown Sibling Family History: Family History (Last Reviewed 01/22/20 @ 10:53 by Mariza Chase) Brother Cancer Father Heart disease History Items: Cancer, - Review of Systems Constitutional: Reports: Fever, Weakness. Denies: Chills, Weight Change HEENT: Denies: Head Aches, Sinus Congestion, Sinus Drainage Cardiovascular: Denies: Chest Pain, Palpitations Respiratory: Reports: Shortness of breath at rest. Denies: Cough, Sputum production Gastrointestinal: Denies: Abdominal Pain, Nausea, Vomiting Genitourinary: Denies: Dysuria Musculoskeletal: Denies: Joint Pain, Joint Tenderness Skin: Denies: Rash, Wounds Neurological: Denies: Numbness, Tingling, Focal weakness Psychiatric: Denies: Anxiety, Depression, Homicidal Ideations, Suicidal Ideations Hematologic/ Lymphatic: Denies: Easy Bruising, Easy Bleeding VTE Information - Inpt Only VTE Present on Admission: No - cta pending VTE Mechan Device Prophylaxis: None VTE Pharm Prophylaxis ordered?: No Patient Problems: Active and Suspected Problems (Last Reviewed 01/22/20 @ 10:53 by Mariza Chase) Acute hypoxic respiratory insufficiency (Acute) COVID-19 (Acute) Dyspnea (Acute) Frequent falls (Acute) - Physical Exam Vitals/I&O's: Vital Signs Temp Pulse Resp BP Pulse Ox 99.0 F 97 26 H 120/76 95 01/27/20 23:41 01/27/20 23:39 01/27/20 23:39 01/27/20 23:39 01/27/20 23:39 Oxygen Flow Rate (L/min) 15 Oxygen Delivery Method Venturi Mask Weight: 325 lb 13.491 oz Body Mass Index (BMI) 46.7 Finger Stick Blood Glucose 180 General: Alert, Oriented x3, Cooperative HEENT: Atraumatic, Normocephalic Neck: Supple, No JVD, Negative Carotid Bruits Lungs: Diminished, Short of Breath, Tachypneic, Wheezes Cardiovascular: Regular rate, No murmurs Abdomen: Bowel Sounds Present, Soft Extremities: No edema Skin: No rashes, No breakdown Musculoskeletal: No Tenderness to Palpation of Joints or Extremities Neurological: Neuro grossly intact Psych/Mental Status: Normal Affect, Appropriate Laboratory Results 01/27/20 20:11: PT 19.6 H, INR 1.7, APTT 47.6 H, D-Dimer Quant (PE/DVT) 1.90 H* 01/27/20 20:15: WBC 4.3 L, RBC 5.50, Hgb 14.6, Hct 49.9, MCV 90.7, MCH 26.5 L, MCHC 29.3 L, RDW Std Deviation 58.0 H, RDW Coeff of Germán 17.8 H, Plt Count 160, MPV 10.3, Immature Gran % (Auto) 0.500, Neut % (Auto) 61.0, Lymph % (Auto) 26.0, Mayes % (Auto) 12.0 H, Eos % (Auto) 0.0, Baso % (Auto) 0.5, Absolute Neuts (auto) 2.7, Absolute Lymphs (auto) 1.13, Nucleated RBC % 0 01/27/20 20:15: Sodium Cancelled, Potassium Cancelled, Chloride Cancelled, Carbon Dioxide Cancelled, Anion Gap Cancelled, BUN Cancelled, Creatinine Cancelled, Estim Creat Clear Calc Cancelled, Est GFR (MDRD) Af Amer Cancelled, Est GFR (MDRD) Non-Af Cancelled, BUN/Creatinine Ratio Cancelled, Glucose Cancelled, Calcium Cancelled, Total Bilirubin Cancelled, AST Cancelled, ALT Cancelled, Alkaline Phosphatase Cancelled, Troponin I Cancelled, Total Protein Cancelled, Albumin Cancelled, Globulin Cancelled, Albumin/Globulin Ratio Cancelled 01/27/20 20:15: Lactic Acid 1.1 01/27/20 20:44: Specimen Type ART, Sample Site L Radial, pH 7.39, Bicarbonate Actual 31.2 H, Total CO2 33, Base Excess 6 H, O2 Saturation 94 L, ABG pCO2 52.3 H, ABG pO2 74 L, O2 Delivery Device Cannula, Liter Flow 6.0 01/27/20 20:55: Sodium 144, Potassium 3.9, Chloride 107, Carbon Dioxide 32.0, Anion Gap 5, BUN 19 H, Creatinine 0.96, Estim Creat Clear Calc 61.26, Est GFR (MDRD) Af Amer 97, Est GFR (MDRD) Non-Af 80, BUN/Creatinine Ratio 19.8, Glucose 118 H, Calcium 8.4 L, Total Bilirubin 0.40, AST 24, ALT 17, Alkaline Phosphatase 148 H, Troponin I 0.070 H, Total Protein 6.8, Albumin 2.7 L, Globulin 4.1, Albumin/Globulin Ratio 0.7 L 01/27/20 21:15: Urine Color Yellow, Urine Clarity Sl. Cloudy, Urine pH 6.0, Ur Specific [place] 1.015, Urine Protein 30 H, Urine Glucose (UA) Normal, Urine Ketones Negative, Urine Occult Blood 25 H, Urine Nitrite Negative, Urine Bilirubin Negative, Urine Urobilinogen Normal, Ur Leukocyte Esterase 500 H, Urine RBC 0-5 SEEN, Urine WBC 50-100 SEEN, Ur Squamous Epith Cells 0-5 SEEN, Amorphous Sediment 1+ URATE, Urine Bacteria RARE, Urine Mucus 0 SEEN Assessment/Plan All Active Problems (Last Reviewed 01/22/20 @ 10:53 by Mariza Chase) Acute hypoxic respiratory insufficiency (Acute) Bilateral pneumonia (Acute) COVID-19 (Acute) Dyspnea (Acute) History of bilateral hip replacements (Resolved) History of bilateral knee replacement (Resolved) Acute urinary tract infection (Acute) Acute urinary retention (Acute) Conjunctivitis (Acute) Asthma exacerbation (Acute) Abnormal nuclear stress test (Acute) Frequent falls (Acute) Chronic Problems (Last Reviewed 01/22/20 @ 10:53 by Mariza L Salvatore) Osteoarthritis (Chronic) Obstructive sleep apnea syndrome (Chronic) Chronic kidney disease, stage II (mild) (Chronic) Cataract (Chronic) Obesity (Chronic) bmi 44 Gastroesophageal reflux disease (Chronic) Type 2 diabetes mellitus (Chronic) Atrial flutter (Chronic) Atrial fibrillation (Chronic) Shortness of breath (Chronic) Physical debility (Chronic) 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 COVID-19 with impending respiratory failure?continue patient on Venturi mask with supplemental oxygen, breathing treatments, Decadron, follow-up on CT angiogram chest to rule out PE, maintain strict isolation procedures. Consult site reliability engineer for ICU management, CBC BMP in the morning 2. Diabetes?continue current medications 3. Atrial fibrillation?continue anticoagulation medication 4. DVT prophylaxis?patient is already anticoagulated 5. elevated troponin- cycle troponins Inpatient E&M: 55351 Init Hosp L3
[2020-01-28] VITALS (33 sets, daily range): BP systolic 115–153; BP diastolic 74–107; PULSE 67–128; RESP 15–24; TEMP 36.1–37.9; O2SAT 90–99; BMI 44.1; BMI 44.2
[2020-01-28 04:41] LABS: Hematocrit 48.2 % (40-54); Mean Corpuscular Hgb 26.7 pg (27.0-32.0); RBC Distribution Width CV 17.7 % (11.6-14.6); Red Blood Count 5.24 M/mm3 (4.6-6.2); White Blood Count 4.5 K/mm3 (4.4-11.0)
[2020-01-28 04:42] LABS: Mean Platelet Vol. 10.4 fl (6.2-12.0); POSITIVE DIFFERENTIAL YES; Platelet Count 144 K/mm3 (150-450); RBC Distribution Width SD 58.8 fl (35.1-43.9)
[2020-01-28 04:43] LABS: Absolute Lymphocyte Count 0.53 X10^3/uL (0.83-4.51); Absolute Neutrophil Count 3.8 X10^3/uL (2.0-7.7); Basophil% 0.2 % (0-1); Differential Indicated SCAN CRITERIA MET; Lymphocyte % 11.8 % (19-41); Monocyte% 4.2 % (0-10); Neutrophil % 83.4 % (47-70)
[2020-01-28 04:45] LABS: Differential Comment SCANNED
--- NOTE | 2020-01-28 06:02 | CON.PCM_ITS ---
Reason for Consult Date of Consultation: 01/28/20 Reason for Consultation: Acute hypoxemic respiratory failure History of Present Illness: The patient is an 84-year-old male, with a history as outlined below, who presented to the emergency department on January 26 with complaints of shortness of breath and hypoxemia. The patient currently resides in a longterm facility, [facility], and was tested for coronavirus on January 23, which was found to be positive. The patient is currently followed by Dr. Root in the pulmonary medicine clinic, as recently as January 21 due to a history of obstructive sleep apnea and shortness of breath. The patient also has a history of chronic atrial fibrillation and is currently anticoagulated on Eliquis. On presentation to the emergency department, he was initially documented to be afebrile but was tachypneic and hypoxemic. Laboratory evaluation revealed a normal white blood cell count. Coagulation profile revealed an elevated D-dimer to 1.90. Arterial blood gas obtained on 6 L/min revealed a pH of 7.39 with a corresponding PCO2 of 52 and PO2 of 74. Chemistry profile was largely unrevealing. Lactate was within normal limits. Alkaline phosphatase was increased to 148. Troponin was increased to 0.070. Urine analysis was negative for nitrites but positive for leukocyte esterase with rare urine bacteria noted. A CTA chest was obtained which revealed no evidence for pulmonary embolism. There was evidence of bibasilar airspace disease along with bilateral pleural effusions. 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 Coli UTI Cx. Acute urinary retention (Acute) R33.8 Crews placed w/ E. Coli UCx, discontinued prior to discharge. Plan outpatient Urology consultation and increased flomax. Conjunctivitis (Acute) H10.9 L Eye. 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 small vessel ischemic Seizure (Chronic) Benign essential hypertension (Chronic) I10 Allergies No Known Allergies Allergy (Verified 01/22/20 10:53) Home Medications: Ambulatory Orders Medication Instructions Recorded Acetaminophen [Tylenol] 650 mg PO BID 01/27/20 Apixaban [Eliquis] 5 mg PO BID 01/27/20 Budesonide [Pulmicort] 0.5 mg IH BID 01/27/20 Calcium Carbonate/Vitamin D3 1 tab PO DAILY 01/27/20 [Calcium 600-Vit D3 200 Tablet] Carvedilol 6.25 mg PO BID 01/27/20 Diltiazem HCl [Diltiazem ER] 180 mg PO DAILY 01/27/20 Ergocalciferol [Vitamin D] 50,000 unit PO Q7D 01/27/20 Ferrous Sulfate 325 mg PO BID 01/27/20 Furosemide [Lasix] 80 mg PO BID 01/27/20 Guaifenesin [Mucinex] 1,200 mg PO BID 01/27/20 Potassium Chloride [K-Dur] 40 meq PO BID 01/27/20 Tamsulosin HCl [Flomax] 0.4 mg PO BID 01/27/20 Acetaminophen [Tylenol] 650 mg PO TID PRN 01/28/20 Albuterol Sulfate HFA 2 puff INHALATION Q4H PRN 01/28/20 Atorvastatin Calcium [Lipitor] 40 mg PO DAILY 01/28/20 Bisacodyl 10 mg RC DAILY PRN 01/28/20 Calcium Carbonate [Tums] 3 tab PO Q2H PRN 01/28/20 Cod Liver/Vit A,D/Petrolat,Wht 1 tab PO DAILY 01/28/20 Docusate Sodium [Colace] 100 mg PO DAILY 01/28/20 Losartan Potassium 50 mg PO QHS 01/28/20 Magnesium Oxide 400 400 mg PO DAILY 01/28/20 Milk Of Magnesia 30 ml PO BID PRN 01/28/20 Multivitamin 1 tab PO DAILY 01/28/20 Oxycodone [Oxyir] 5 mg PO Q4H PRN PRN 01/28/20 Oxycodone [Oxyir] 5 mg PO QHS 01/28/20 Polyethylene Glycol 3350 [Miralax] 17 gm PO DAILY 01/28/20 Senna-S 8.6-50 mg Tablet 50 mg PO DAILY 01/28/20 Sertraline HCl [Zoloft] 25 mg PO QHS 01/28/20 Zithromax 250 mg PO DAILY 01/28/20 Surgical History: Surgical History (Last Reviewed 01/22/20 @ 10:53 by Mariza Chase) History of bilateral hip replacements (Resolved) Z96.643 History of bilateral knee replacement (Resolved) Z96.653 Surgical History: total hip arthroplasty, total knee arthroplasty, tonsillectomy, - - Back surgery Psychiatric History: No pertinent psych hx Lives: With Family Smoking Status: Never smoker Alcohol: None Drugs: None - *Family History Maternal Family History: Family History (Last Reviewed 01/22/20 @ 10:53 by Mariza Chase) Brother Cancer Father Heart disease History Items: Diabetes Paternal Family History: Family History (Last Reviewed 01/22/20 @ 10:53 by Mariza Chase) Brother Cancer Father Heart disease History Items: Unknown Sibling Family History: Family History (Last Reviewed 01/22/20 @ 10:53 by Mariza Chase) Brother Cancer Father Heart disease History Items: Cancer, - Review of Systems Constitutional: Reports: Malaise, Weakness Eyes: Denies: Blurred vision, Double vision HEENT: Denies: Head Aches, Sinus Congestion, Sinus Drainage Cardiovascular: Denies: Chest Pain, Palpitations Respiratory: Reports: Cough, Shortness of Breath Gastrointestinal: Denies: Abdominal Pain, Nausea, Vomiting Genitourinary: Denies: Dysuria Musculoskeletal: Denies: Joint Pain, Joint Tenderness Skin: Denies: Rash, Wounds Neurological: Denies: Numbness, Tingling, Focal weakness Psychiatric: Denies: Anxiety, Depression, Homicidal Ideations, Suicidal Ideations Hematologic/ Lymphatic: Reports: Anemia Patient Problems: Active and Suspected Problems (Last Reviewed 01/22/20 @ 10:53 by Mariza Chase) Acute hypoxic respiratory insufficiency (Acute) COVID-19 (Acute) Dyspnea (Acute) Frequent falls (Acute) Objective: The patient's most recent lab work, culture data and imaging studies have all been personally reviewed. Surface echocardiogram completed in January 2017 revealed normal LV size with an ejection fraction of 60%. Coronavirus PCR was positive from testing on January 23. Blood and urine cultures are pending. Of note, the patient does have a history of MRSA from sputum in 2019. - Physical Exam Vitals/I&O's: Vital Signs Temp Pulse Resp BP Pulse Ox 99.8 F H 102 H 16 127/74 H 98 01/28/20 05:00 01/28/20 05:00 01/28/20 05:00 01/28/20 05:00 01/28/20 05:00 Oxygen Flow Rate (L/min) 8 Oxygen Delivery Method Nasal Cannula Weight: 307 lb 15.772 oz Body Mass Index (BMI) 44.1 Finger Stick Blood Glucose 180 General: Alert, Cooperative, No apparent distress, - - Morbidly obese HEENT: Atraumatic, PERRLA, Normocephalic Oral: No Gingival or Mucosal Lesions/ Ulcerations Neck: Supple, No Nodes, Trachea Midline Lungs: Diminished, Tachypneic Cardiovascular: Normal S1, Normal S2, Irregular Rate, Tachycardic Abdomen: Bowel Sounds Present, Soft, Non Tender, Obese Extremities: No clubbing, No cyanosis, Edema Skin: No breakdown Musculoskeletal: No Muscle Wasting Lymphatic: No Cervical, Supraclavicular, or Inguinal Adenopathy Neurological: Cranial nerves II-XII grossly intact, Neuro grossly intact Psych/Mental Status: Normal Affect, Appropriate Labs (Last 48 Hours) 01/27/20 01/27/20 01/27/20 20:11 20:15 20:15 WBC 4.3 L RBC 5.50 Hgb 14.6 Hct 49.9 MCV 90.7 MCH 26.5 L MCHC 29.3 L RDW Std Deviation 58.0 H RDW Coeff of Germán 17.8 H Plt Count 160 MPV 10.3 Immature Gran % (Auto) 0.500 Neut % (Auto) 61.0 Lymph % (Auto) 26.0 Gove % (Auto) 12.0 H Eos % (Auto) 0.0 Baso % (Auto) 0.5 Absolute Neuts (auto) 2.7 Absolute Lymphs (auto) 1.13 Nucleated RBC % 0 Differential Comment PT 19.6 H INR 1.7 APTT 47.6 H D-Dimer Quant (PE/DVT) 1.90 H* Specimen Type Sample Site pH Bicarbonate Actual Total CO2 Base Excess O2 Saturation ABG pCO2 ABG pO2 O2 Delivery Device Liter Flow Sodium Cancelled Potassium Cancelled Chloride Cancelled Carbon Dioxide Cancelled Anion Gap Cancelled BUN Cancelled Creatinine Cancelled Estim Creat Clear Calc Cancelled Est GFR (MDRD) Af Amer Cancelled Est GFR (MDRD) Non-Af Cancelled BUN/Creatinine Ratio Cancelled Glucose Cancelled Lactic Acid Calcium Cancelled Phosphorus Magnesium Total Bilirubin Cancelled AST Cancelled ALT Cancelled Alkaline Phosphatase Cancelled Troponin I Cancelled Total Protein Cancelled Albumin Cancelled Globulin Cancelled Albumin/Globulin Ratio Cancelled Urine Color Urine Clarity Urine pH Ur Specific [place] Urine Protein Urine Glucose (UA) Urine Ketones Urine Occult Blood Urine Nitrite Urine Bilirubin Urine Urobilinogen Ur Leukocyte Esterase Urine RBC Urine WBC Ur Squamous Epith Cells Amorphous Sediment Urine Bacteria Urine Mucus 01/27/20 01/27/20 01/27/20 20:15 20:44 20:55 WBC RBC Hgb Hct MCV MCH MCHC RDW Std Deviation RDW Coeff of Germán Plt Count MPV Immature Gran % (Auto) Neut % (Auto) Lymph % (Auto) Gove % (Auto) Eos % (Auto) Baso % (Auto) Absolute Neuts (auto) Absolute Lymphs (auto) Nucleated RBC % Differential Comment PT INR APTT D-Dimer Quant (PE/DVT) Specimen Type ART Sample Site L Radial pH 7.39 Bicarbonate Actual 31.2 H Total CO2 33 Base Excess 6 H O2 Saturation 94 L ABG pCO2 52.3 H ABG pO2 74 L O2 Delivery Device Cannula Liter Flow 6.0 Sodium 144 Potassium 3.9 Chloride 107 Carbon Dioxide 32.0 Anion Gap 5 BUN 19 H Creatinine 0.96 Estim Creat Clear Calc 61.26 Est GFR (MDRD) Af Amer 97 Est GFR (MDRD) Non-Af 80 BUN/Creatinine Ratio 19.8 Glucose 118 H Lactic Acid 1.1 Calcium 8.4 L Phosphorus Magnesium Total Bilirubin 0.40 AST 24 ALT 17 Alkaline Phosphatase 148 H Troponin I 0.070 H Total Protein 6.8 Albumin 2.7 L Globulin 4.1 Albumin/Globulin Ratio 0.7 L Urine Color Urine Clarity Urine pH Ur Specific [place] Urine Protein Urine Glucose (UA) Urine Ketones Urine Occult Blood Urine Nitrite Urine Bilirubin Urine Urobilinogen Ur Leukocyte Esterase Urine RBC Urine WBC Ur Squamous Epith Cells Amorphous Sediment Urine Bacteria Urine Mucus 01/27/20 01/28/20 01/28/20 21:15 01:05 04:00 WBC 4.5 RBC 5.24 Hgb 14.0 Hct 48.2 MCV 92.0 MCH 26.7 L MCHC 29.0 L RDW Std Deviation 58.8 H RDW Coeff of Germán 17.7 H Plt Count 144 L MPV 10.4 Immature Gran % (Auto) 0.400 Neut % (Auto) 83.4 H Lymph % (Auto) 11.8 L Gove % (Auto) 4.2 Eos % (Auto) 0.0 Baso % (Auto) 0.2 Absolute Neuts (auto) 3.8 Absolute Lymphs (auto) 0.53 L Nucleated RBC % Differential Comment SCANNED PT INR APTT D-Dimer Quant (PE/DVT) Specimen Type Sample Site pH Bicarbonate Actual Total CO2 Base Excess O2 Saturation ABG pCO2 ABG pO2 O2 Delivery Device Liter Flow Sodium Potassium Chloride Carbon Dioxide Anion Gap BUN Creatinine Estim Creat Clear Calc Est GFR (MDRD) Af Amer Est GFR (MDRD) Non-Af BUN/Creatinine Ratio Glucose Lactic Acid Calcium Phosphorus Magnesium Total Bilirubin AST ALT Alkaline Phosphatase Troponin I 0.071 H Total Protein Albumin Globulin Albumin/Globulin Ratio Urine Color Yellow Urine Clarity Sl. Cloudy Urine pH 6.0 Ur Specific [place] 1.015 Urine Protein 30 H Urine Glucose (UA) Normal Urine Ketones Negative Urine Occult Blood 25 H Urine Nitrite Negative Urine Bilirubin Negative Urine Urobilinogen Normal Ur Leukocyte Esterase 500 H Urine RBC 0-5 SEEN Urine WBC 50-100 SEEN Ur Squamous Epith Cells 0-5 SEEN Amorphous Sediment 1+ URATE Urine Bacteria RARE Urine Mucus 0 SEEN 01/28/20 01/28/20 04:00 04:00 WBC RBC Hgb Hct MCV MCH MCHC RDW Std Deviation RDW Coeff of Germán Plt Count MPV Immature Gran % (Auto) Neut % (Auto) Lymph % (Auto) Gove % (Auto) Eos % (Auto) Baso % (Auto) Absolute Neuts (auto) Absolute Lymphs (auto) Nucleated RBC % Differential Comment PT INR APTT D-Dimer Quant (PE/DVT) Specimen Type Sample Site pH Bicarbonate Actual Total CO2 Base Excess O2 Saturation ABG pCO2 ABG pO2 O2 Delivery Device Liter Flow Sodium Pending Potassium Pending Chloride Pending Carbon Dioxide Pending Anion Gap Pending BUN Pending Creatinine Pending Estim Creat Clear Calc Est GFR (MDRD) Af Amer Pending Est GFR (MDRD) Non-Af Pending BUN/Creatinine Ratio Pending Glucose Pending Lactic Acid Calcium Pending Phosphorus Pending Magnesium Pending Total Bilirubin AST ALT Alkaline Phosphatase Troponin I 0.066 H Total Protein Albumin Globulin Albumin/Globulin Ratio Urine Color Urine Clarity Urine pH Ur Specific [place] Urine Protein Urine Glucose (UA) Urine Ketones Urine Occult Blood Urine Nitrite Urine Bilirubin Urine Urobilinogen Ur Leukocyte Esterase Urine RBC Urine WBC Ur Squamous Epith Cells Amorphous Sediment Urine Bacteria Urine Mucus Clinical Impression(s) from Imaging Studies Chest X-Ray 01/27/20 20:40 IMPRESSION: No acute findings. Electronically Signed: Martha Monet MD at 21:17 EDT Tel , Service support , Chest CTA 01/27/20 21:14 IMPRESSION: Bibasilar airspace disease. Small bilateral pleural effusions. Coronary artery disease. Electronically Signed: Harjit Downs MD at 23:45 EDT , Service support , Current Medications Acetaminophen (Acetaminophen 325 Mg Tablet) 650 mg PO BID KARRI Albuterol Sulfate (Albuterol 2.5 Mg/3 Ml Vial.Neb.) 2.5 mg INHALATION Q2H PRN PRN PRN Reason: SOB/Wheezing Apixaban (Apixaban 5 Mg Tablet) 5 mg PO BID [facility] Calcium/Vitamin D (Calcium Carb/Vitamin D 1 Tablet Tablet) 1 tablet PO DAILY [facility] Carvedilol (Carvedilol 6.25 Mg Tablet) 6.25 mg PO BID [facility] Diltiazem HCl (Diltiazem Cd 180 Mg Capsule) 180 mg PO DAILY [facility] Furosemide (Furosemide 80 Mg Tablet) 80 mg PO BID@1000,1700 [facility] Guaifenesin (Guaifenesin 1,200 Mg Tablet) 1,200 mg PO BID [facility] Potassium Chloride (Potassium Chloride 20 Meq Tablet) [facility] Sodium Chloride (0.9% Saline Lock 10 Ml Syringe) 10 - 40 ml IV UD PRN PRN Reason: SALINE FLUSH Tamsulosin HCl (Tamsulosin Hcl 0.4 Mg Capsule) 0.4 mg PO DAILY [facility] Assessment/Plan Active and Suspected Problems (Last Reviewed 01/22/20 @ 10:53 by Mariza Chase) Acute hypoxic respiratory insufficiency (Acute) COVID-19 (Acute) Dyspnea (Acute) Frequent falls (Acute) RECOMMENDATIONS: 1. Start empiric antimicrobials, given radiographic findings, and history of MRSA from sputum in 2019. 2. Wean supplemental oxygen to maintain saturations at or above 90%. 3. Send type and screen, should convalescent plasma be warranted. 4. Obtain BNP. 5. Continue systemic anticoagulation with Eliquis. 6. Start Decadron 6 mg with plans to complete 10-day treatment course. 7. Given acuity of symptoms, will start remdesivir. Infectious diseases consultation is pending. IMPRESSIONS: 1. Acute hypoxemic respiratory failure secondary to Covid pneumonia and possible bibasilar bacterial pneumonia At this time, the patient will be continued on supplemental oxygen to maintain saturations at or above 90%. Empiric antimicrobials were started this morning in response to the radiographic findings noted on CTA chest. The patient does have a history of MRSA from sputum in 2019. In addition, the patient has been consented to receive remdesivir and convalescent plasma. He will be continued on systemic anticoagulation with Eliquis along with Decadron to complete a 10- day treatment course. 2. Chronic atrial fibrillation Continue home medication regimen. The patient remains rate controlled. 3. Obstructive sleep apnea The patient has known obstructive sleep apnea and reports compliance with nocturnal CPAP therapy. Plan to continue nocturnal Pap therapy per home regimen. 4. Morbid obesity/hypertension/diabetes mellitus Complicates care, management, recovery and prognosis. Continue home medications as indicated. Patient or caregiver was given a copy of the Remdesivir Fact Sheet for Patients and Parents/Caregivers. The following information was communicated to the patient or caregiver: Remdesivir is not an FDA approved drug. The FDA has authorized the emergency use of Remdesivir. The patient had the option to refuse or accept treatment with Remdesivir. The patient was informed that the number of people treated with Remdesivir is small at this time. The potential benefits and potential risks of Remdesivir are not fully known. Potential benefits of Remdesivir include a shorter time to recovery of COVID-19 infection. Potential risks or side effects of Remdesivir include sweating, shivering, nausea and vomiting or low blood pressure related to a reaction to the medication infusion and increases in liver enzymes. No drugs are approved by the FDA to treat COVID-19 at this time. The patient (or appointed public service representative) stated understanding of information communicated and wished to proceed with Remdesivir treatment. This note was generated with [employer] dictation software. It may contain incorrect words, spelling, and punctuation that were not noted in checking the note before signing. Inpatient E&M: 01451 Init Hosp L3
[2020-01-28 06:20] LABS: Anion Gap 8 (5-15); BUN 18 mg/dL (7-18); BUN/Creat Ratio 21.2 RATIO (10-20); Calcium,Total 7.8 mg/dL (8.5-10.1); Chloride 104 mmol/L (98-107); Creatinine, Serum 0.85 mg/dL (0.70-1.30); EST Glomerular Filtration Rate 92 mL/min (>60); Est Glom Filt Rate - Afr Amer 112 mL/min (>60); Estimated Creatinine Clearance 69.18 ml/min; Glucose 133 mg/dL (74-106); Phosphorus 3.5 mg/dL (2.5-4.9); Potassium 4.2 mmol/L (3.5-5.1); Sodium Level 141 mmol/L (136-145)
--- NOTE | 2020-01-28 07:31 | PN_ITS ---
Patient Problems: Active and Suspected Problems (Last Reviewed 01/22/20 @ 10:53 by Mariza Chase) Acute hypoxic respiratory insufficiency (Acute) COVID-19 (Acute) Dyspnea (Acute) Frequent falls (Acute) Subjective: Patient seen and examined. He was admitted from his halfway with a complaitn of shortness of breath and hypoxemia. He was found to be positive for coronavirus on MondayJanuary 23 in his [facility]. CTA was negative for any PE but showed bibasilar airspace disease along with bilateral pleural effusions. Patient seen this morning. He still complains of some shortness of breath. He also has a cough which is mildly productive. Review of symptoms otherwise negative. Vitals/I&O's: Vital Signs Temp Pulse Resp BP Pulse Ox 99.7 F H 110 H 19 H 119/77 99 01/28/20 06:00 01/28/20 06:00 01/28/20 06:00 01/28/20 06:00 01/28/20 06:00 Oxygen Flow Rate (L/min) 8 Oxygen Delivery Method Nasal Cannula Weight: 307 lb 15.772 oz Body Mass Index (BMI) 44.1 Finger Stick Blood Glucose 180 Intake and Output for Last 24 Hours 01/26/20 01/27/20 01/28/20 23:59 23:59 23:59 Output Total 650 / 650 Balance -650 / -650 General: Alert, Oriented x3, Cooperative HEENT: Atraumatic, PERRLA, EOMI, Normocephalic Oral: Moist Mucosa Neck: Supple, No JVD, Negative Carotid Bruits Lungs: Tachypneic, - - diminished breath sounds bibasally, no wheezes or crackles. on 8L of oxygen by nasal canula Cardiovascular: Normal S1, Normal S2, No murmurs, Tachycardic Abdomen: Bowel Sounds Present, Soft, Non Tender, Non-Distended, No Hepato- splenomegaly Extremities: No clubbing, No cyanosis, Capillary Refill Less than 3 Seconds, - - 2+ bipedal pitting edema Skin: No rashes, No breakdown Musculoskeletal: No Tenderness to Palpation of Joints or Extremities Lymphatic: No Cervical, Supraclavicular, or Inguinal Adenopathy Neurological: Cranial nerves II-XII grossly intact, Neuro grossly intact, Motor Exam 5/5 strength throughout Psych/Mental Status: Normal Affect, Appropriate, Alert and oriented to time, place, person, mood and affect Laboratory Results 01/27/20 20:11: PT 19.6 H, INR 1.7, APTT 47.6 H, D-Dimer Quant (PE/DVT) 1.90 H* 01/27/20 20:15: WBC 4.3 L, RBC 5.50, Hgb 14.6, Hct 49.9, MCV 90.7, MCH 26.5 L, MCHC 29.3 L, RDW Std Deviation 58.0 H, RDW Coeff of Germán 17.8 H, Plt Count 160, MPV 10.3, Immature Gran % (Auto) 0.500, Neut % (Auto) 61.0, Lymph % (Auto) 26.0, [place] % (Auto) 12.0 H, Eos % (Auto) 0.0, Baso % (Auto) 0.5, Absolute Neuts (auto) 2.7, Absolute Lymphs (auto) 1.13, Nucleated RBC % 0 01/27/20 20:15: Sodium Cancelled, Potassium Cancelled, Chloride Cancelled, Carbon Dioxide Cancelled, Anion Gap Cancelled, BUN Cancelled, Creatinine Cancelled, Estim Creat Clear Calc Cancelled, Est GFR (MDRD) Af Amer Cancelled, Est GFR (MDRD) Non-Af Cancelled, BUN/Creatinine Ratio Cancelled, Glucose Cancelled, Calcium Cancelled, Total Bilirubin Cancelled, AST Cancelled, ALT Cancelled, Alkaline Phosphatase Cancelled, Troponin I Cancelled, Total Protein Cancelled, Albumin Cancelled, Globulin Cancelled, Albumin/Globulin Ratio Cancelled 01/27/20 20:15: Lactic Acid 1.1 01/27/20 20:44: Specimen Type ART, Sample Site L Radial, pH 7.39, Bicarbonate Actual 31.2 H, Total CO2 33, Base Excess 6 H, O2 Saturation 94 L, ABG pCO2 52.3 H, ABG pO2 74 L, O2 Delivery Device Cannula, Liter Flow 6.0 01/27/20 20:55: Sodium 144, Potassium 3.9, Chloride 107, Carbon Dioxide 32.0, Anion Gap 5, BUN 19 H, Creatinine 0.96, Estim Creat Clear Calc 61.26, Est GFR (MDRD) Af Amer 97, Est GFR (MDRD) Non-Af 80, BUN/Creatinine Ratio 19.8, Glucose 118 H, Calcium 8.4 L, Total Bilirubin 0.40, AST 24, ALT 17, Alkaline Phosphatase 148 H, Troponin I 0.070 H, Total Protein 6.8, Albumin 2.7 L, Globulin 4.1, Albumin/Globulin Ratio 0.7 L 01/27/20 21:15: Urine Color Yellow, Urine Clarity Sl. Cloudy, Urine pH 6.0, Ur Specific [place] 1.015, Urine Protein 30 H, Urine Glucose (UA) Normal, Urine K etones Negative, Urine Occult Blood 25 H, Urine Nitrite Negative, Urine Bilirubin Negative, Urine Urobilinogen Normal, Ur Leukocyte Esterase 500 H, Ur ine RBC 0-5 SEEN, Urine WBC 50-100 SEEN, Ur Squamous Epith Cells 0-5 SEEN, Amorphous Sediment 1+ URATE, Urine Bacteria RARE, Urine Mucus 0 SEEN 01/28/20 01:05: Troponin I 0.071 H 01/28/20 04:00: WBC 4.5, RBC 5.24, Hgb 14.0, Hct 48.2, MCV 92.0, MCH 26.7 L, MCHC 29.0 L, RDW Std Deviation 58.8 H, RDW Coeff of Germán 17.7 H, Plt Count 144 L, MPV 10.4, Immature Gran % (Auto) 0.400, Neut % (Auto) 83.4 H, Lymph % (Auto) 11.8 L, [place] % (Auto) 4.2, Eos % (Auto) 0.0, Baso % (Auto) 0.2, Absolute Neuts (auto) 3.8, Absolute Lymphs (auto) 0.53 L, Differential Comment SCANNED 01/28/20 04:00: Sodium 141, Potassium 4.2, Chloride 104, Carbon Dioxide 29.0, Anion Gap 8, BUN 18, Creatinine 0.85, Estim Creat Clear Calc 69.18, Est GFR (MDRD) Af Amer 112, Est GFR (MDRD) Non-Af 92, BUN/Creatinine Ratio 21.2 H, Glucose 133 H, Calcium 7.8 L, Phosphorus 3.5, Magnesium 2.0 01/28/20 04:00: Troponin I 0.066 H Diagnostic Data Chest X-Ray 01/27/20 20:40 IMPRESSION: No acute findings. Electronically Signed: Martha Monet MD at 21:17 EDT Tel , Service support , Chest CTA 01/27/20 21:14 IMPRESSION: Bibasilar airspace disease. Small bilateral pleural effusions. Coronary artery disease. Electronically Signed: Harjit Downs MD at 23:45 EDT , Service support , Current Medications Acetaminophen (Acetaminophen 325 Mg Tablet) 650 mg PO BID KARRI Apixaban (Apixaban 5 Mg Tablet) 5 mg PO BID KARRI Calcium/Vitamin D (Calcium Carb/Vitamin D 1 Tablet Tablet) 1 tablet PO DAILY KARRI Carvedilol (Carvedilol 6.25 Mg Tablet) 6.25 mg PO BID KARRI Dexamethasone (Dexamethasone 4 Mg Tablet) 6 mg PO DAILY@0800 KARRI Diltiazem HCl (Diltiazem Cd 180 Mg Capsule) 180 mg PO DAILY KARRI Furosemide (Furosemide 80 Mg Tablet) 80 mg PO BID@1000,1700 KRARI Guaifenesin (Guaifenesin 1,200 Mg Tablet) 1,200 mg PO BID KARRI Piperacillin Sod/Tazobactam (Sod 3.375 gm/ Sodium Chloride) 50 mls @ 12.5 mls/hr IV Q8 KARRI Vancomycin IV Pharmacy to Dose (1 ea/ Sodium Chloride) 500 mls @ 250 mls/hr IV X1 PRN; Protocol PRN Reason: Rx to Dose Remdesivir (Investigational) (200 mg/ Sodium Chloride) 250 mls @ 125 mls/hr IV X1 ONE; Protocol Stop: 01/28/20 11:59 Remdesivir (Investigational) (100 mg/ Sodium Chloride) 250 mls @ 125 mls/hr IV DAILY KARRI; Protocol Stop: 02/01/20 11:59 Piperacillin Sod/Tazobactam (Sod 4.5 gm/ Sodium Chloride) 100 mls @ 150 mls/hr IV X1 ONE Stop: 01/28/20 08:39 Vancomycin HCl 2,000 mg/ (Sodium Chloride) 540 mls @ 250 mls/hr IV X1 ONE Stop: 01/28/20 10:24 Potassium Chloride (Potassium Chloride 20 Meq Tablet) 40 meq PO BIDCM KARRI Sodium Chloride (0.9% Saline Lock 10 Ml Syringe) 10 - 40 ml IV UD PRN PRN Reason: SALINE FLUSH Tamsulosin HCl (Tamsulosin Hcl 0.4 Mg Capsule) 0.4 mg PO DAILY KARRI STROKE Vital Signs/Narrative: Vital Signs Temp Pulse Resp BP Pulse Ox 01/28/20 06:00 99.7 F H 110 H 19 H 119/77 99 01/28/20 05:00 99.8 F H 102 H 16 127/74 H 98 01/28/20 04:00 100 F H 101 H 16 115/87 H 97 Medical Necessity - Tobacco Use Smoking Status: Never smoker Assessment/Plan All Active Problems (Last Reviewed 01/22/20 @ 10:53 by Mariza Chase) Acute hypoxic respiratory insufficiency (Acute) Bilateral pneumonia (Acute) COVID-19 (Acute) Dyspnea (Acute) History of bilateral hip replacements (Resolved) History of bilateral knee replacement (Resolved) Acute urinary tract infection (Acute) Acute urinary retention (Acute) Conjunctivitis (Acute) Asthma exacerbation (Acute) Abnormal nuclear stress test (Acute) Frequent falls (Acute) # Acute hypoxic respiratory failure due to COVID 19 infection * Currently on 8 L of oxygen by nasal cannula. * On IV Decadron and remdesivir as prescribed by critical care. * Titrate oxygen to maintain saturation above 90%. * Breathing treatments with bronchodilators. * #COVID-19 pneumonia * Currently on vancomycin and Zosyn. Blood cultures pending. * Management as above. * #A. fib: Mildly tachycardic. On Cardizem 180 mg daily and carvedilol 6.25 mg daily. On Eliquis for anticoagulation. #Type 2 diabetes mellitus: on ISS. Nikolai DANIELSON # hypertension: on losartan and carvedilol DVT prophylaxis: on eliquis. Inpatient E&M: 49139 Subs Hosp L3
[2020-01-28] MEDS: Piperacil/Tazobactam 4.5 GM in NS100 MBP IV (08:37)
[2020-01-28] MEDS: dexAMETHasone 4 MG Tablet 6 MG PO (09:06)
[2020-01-28] MEDS: 0.9% Saline Lock 10 ML Syringe IV ×2 (09:07→13:00)
[2020-01-28 09:34] LABS: Alkaline Phosphatase 137 U/L (45-117)
[2020-01-28 09:55] LABS: BNP,B-Type NATRIURETIC PEPTIDE 302.9 pg/mL (0-100)
[2020-01-28] MEDS: Furosemide 80 MG Tablet PO ×2 (11:01→17:55)
[2020-01-28] MEDS: Carvedilol 6.25 MG Tablet PO ×2 (11:01→20:56)
[2020-01-28] MEDS: APIXABAN 5 MG TABLET PO ×2 (11:01→20:57)
[2020-01-28] MEDS: dilTIAZem CD 180 MG Capsule PO (11:01)
[2020-01-28] MEDS: Calcium Carb/Vitamin D 1 TABLET Tablet PO (11:01)
[2020-01-28] MEDS: guaiFENesin 1,200 MG Tablet 1200 MG PO ×2 (11:01→20:56)
[2020-01-28] MEDS: Acetaminophen 325 MG Tablet 650 MG PO ×2 (11:02→20:57)
[2020-01-28] MEDS: Tamsulosin HCl 0.4 MG Capsule PO (11:02)
--- NOTE | 2020-01-28 11:05 | PCM.RX.CS ---
Consult Pharmacy has been consulted to manage selected antiobiotic: Vancomycin Type of Consult: New start Labs: Sodium 141 mmol/L (136-145) 01/28/20 04:00 Potassium 4.2 mmol/L (3.5-5.1) 01/28/20 04:00 Chloride 104 mmol/L (98-107) 01/28/20 04:00 Carbon Dioxide 29.0 mmol/L (21.0-32.0) 01/28/20 04:00 Anion Gap 8 (5-15) 01/28/20 04:00 BUN 18 mg/dL (7-18) 01/28/20 04:00 Creatinine 0.85 mg/dL (0.70-1.30) 01/28/20 04:00 Est GFR (MDRD) Af Amer 112 mL/min (>60) 01/28/20 04:00 Est GFR (MDRD) Non-Af 92 mL/min (>60) 01/28/20 04:00 BUN/Creatinine Ratio 21.2 RATIO (10-20) H 01/28/20 04:00 Glucose 133 mg/dL (74-106) H 01/28/20 04:00 Weight used for dosin kg Estimated Creatinine Clearance: 69 mL/min Goal Trough: 15-20 mcg/mL Pharmacy Plan for Drug Dosing: Vancomycin 2000mg IV x1 followed by 1500mg IV q12h with trough prior to 4th dose per policy. Pharmacy Service will continue to monitor and adjust dosing as required. Follow-Up Labs: Trough Vancomycin - 01/28 @ 2130
--- NOTE | 2020-01-28 14:13 | PCM.HP.ID ---
Problem List (1) COVID-19 Status: Acute Reason for Consult: covid Consulted by: Dr. Macias History of Present Illness: The patient is a 84 year old Rastafarian male, presented yesterday with 8 days of dry cough, dyspnea, fever, aches, diarrhea. Lives at [facility]. No change in taste or smell. No known covid exposures. Sx worsened, sent to ED, tested (+). Started on dex, plasma and remdesivir ordered. Feeling about the same this AM. Full ROS performed and neg except as noted above. 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 Severe small vessel ischemic Seizure (Chronic) Benign essential hypertension (Chronic) Allergies/Adverse Reactions: Allergies No Known Allergies Allergy (Verified 01/22/20 10:53) Home Medications: Ambulatory Orders Medication Instructions Recorded Acetaminophen [Tylenol] 650 mg PO BID 01/27/20 Apixaban [Eliquis] 5 mg PO BID 01/27/20 Budesonide [Pulmicort] 0.5 mg IH BID 01/27/20 Calcium Carbonate/Vitamin D3 1 tab PO DAILY 01/27/20 [Calcium 600-Vit D3 200 Tablet] Carvedilol 6.25 mg PO BID 01/27/20 Diltiazem HCl [Diltiazem ER] 180 mg PO DAILY 01/27/20 Ergocalciferol [Vitamin D] 50,000 unit PO Q7D 01/27/20 Ferrous Sulfate 325 mg PO BID 01/27/20 Furosemide [Lasix] 80 mg PO BID 01/27/20 Guaifenesin [Mucinex] 1,200 mg PO BID 01/27/20 Potassium Chloride [K-Dur] 40 meq PO BID 01/27/20 Tamsulosin HCl [Flomax] 0.4 mg PO BID 01/27/20 Acetaminophen [Tylenol] 650 mg PO TID PRN 01/28/20 Albuterol Sulfate HFA 2 puff INHALATION Q4H PRN 01/28/20 Atorvastatin Calcium [Lipitor] 40 mg PO DAILY 01/28/20 Bisacodyl 10 mg RC DAILY PRN 01/28/20 Calcium Carbonate [Tums] 3 tab PO Q2H PRN 01/28/20 Cod Liver/Vit A,D/Petrolat,Wht 1 tab PO DAILY 01/28/20 Docusate Sodium [Colace] 100 mg PO DAILY 01/28/20 Losartan Potassium 50 mg PO QHS 01/28/20 Magnesium Oxide 400 400 mg PO DAILY 01/28/20 Milk Of Magnesia 30 ml PO BID PRN 01/28/20 Multivitamin 1 tab PO DAILY 01/28/20 Oxycodone [Oxyir] 5 mg PO Q4H PRN PRN 01/28/20 Oxycodone [Oxyir] 5 mg PO QHS 01/28/20 Polyethylene Glycol 3350 [Miralax] 17 gm PO DAILY 01/28/20 Senna-S 8.6-50 mg Tablet 50 mg PO DAILY 01/28/20 Sertraline HCl [Zoloft] 25 mg PO QHS 01/28/20 Zithromax 250 mg PO DAILY 01/28/20 - Social History Tobacco Use: non-smoker Vital Signs Temp Pulse Resp BP Pulse Ox 99.4 F H 128 H 24 H 140/106 H 96 01/28/20 10:00 01/28/20 11:23 01/28/20 10:00 01/28/20 10:00 01/28/20 10:00 Oxygen Flow Rate (L/min) 4 Oxygen Delivery Method Nasal Cannula Weight: 139.7 kg Body Mass Index (BMI) 44.1 Finger Stick Blood Glucose 180 Laboratory Tests Past 24 Hrs 01/27/20 01/27/20 01/27/20 20:11 20:15 20:15 WBC 4.3 L RBC 5.50 Hgb 14.6 Hct 49.9 MCV 90.7 MCH 26.5 L MCHC 29.3 L RDW Std Deviation 58.0 H RDW Coeff of Germán 17.8 H Plt Count 160 MPV 10.3 Immature Gran % (Auto) 0.500 Neut % (Auto) 61.0 Lymph % (Auto) 26.0 [place] % (Auto) 12.0 H Eos % (Auto) 0.0 Baso % (Auto) 0.5 Absolute Neuts (auto) 2.7 Absolute Lymphs (auto) 1.13 Nucleated RBC % 0 Differential Comment PT 19.6 H INR 1.7 APTT 47.6 H D-Dimer Quant (PE/DVT) 1.90 H* Specimen Type Sample Site pH Bicarbonate Actual Total CO2 Base Excess O2 Saturation ABG pCO2 ABG pO2 O2 Delivery Device Liter Flow Sodium Cancelled Potassium Cancelled Chloride Cancelled Carbon Dioxide Cancelled Anion Gap Cancelled BUN Cancelled Creatinine Cancelled Estim Creat Clear Calc Cancelled Est GFR (MDRD) Af Amer Cancelled Est GFR (MDRD) Non-Af Cancelled BUN/Creatinine Ratio Cancelled Glucose Cancelled Lactic Acid Calcium Cancelled Phosphorus Magnesium Total Bilirubin Cancelled AST Cancelled ALT Cancelled Alkaline Phosphatase Cancelled Troponin I Cancelled B-Natriuretic Peptide Total Protein Cancelled Albumin Cancelled Globulin Cancelled Albumin/Globulin Ratio Cancelled Urine Color Urine Clarity Urine pH Ur Specific [place] Urine Protein Urine Glucose (UA) Urine Ketones Urine Occult Blood Urine Nitrite Urine Bilirubin Urine Urobilinogen Ur Leukocyte Esterase Urine RBC Urine WBC Ur Squamous Epith Cells Amorphous Sediment Urine Bacteria Urine Mucus Blood Type Antibody Screen 01/27/20 01/27/20 01/27/20 20:15 20:44 20:55 WBC RBC Hgb Hct MCV MCH MCHC RDW Std Deviation RDW Coeff of Germán Plt Count MPV Immature Gran % (Auto) Neut % (Auto) Lymph % (Auto) [place] % (Auto) Eos % (Auto) Baso % (Auto) Absolute Neuts (auto) Absolute Lymphs (auto) Nucleated RBC % Differential Comment PT INR APTT D-Dimer Quant (PE/DVT) Specimen Type ART Sample Site L Radial pH 7.39 Bicarbonate Actual 31.2 H Total CO2 33 Base Excess 6 H O2 Saturation 94 L ABG pCO2 52.3 H ABG pO2 74 L O2 Delivery Device Cannula Liter Flow 6.0 Sodium 144 Potassium 3.9 Chloride 107 Carbon Dioxide 32.0 Anion Gap 5 BUN 19 H Creatinine 0.96 Estim Creat Clear Calc 61.26 Est GFR (MDRD) Af Amer 97 Est GFR (MDRD) Non-Af 80 BUN/Creatinine Ratio 19.8 Glucose 118 H Lactic Acid 1.1 Calcium 8.4 L Phosphorus Magnesium Total Bilirubin 0.40 AST 24 ALT 17 Alkaline Phosphatase 148 H Troponin I 0.070 H B-Natriuretic Peptide Total Protein 6.8 Albumin 2.7 L Globulin 4.1 Albumin/Globulin Ratio 0.7 L Urine Color Urine Clarity Urine pH Ur Specific [place] Urine Protein Urine Glucose (UA) Urine Ketones Urine Occult Blood Urine Nitrite Urine Bilirubin Urine Urobilinogen Ur Leukocyte Esterase Urine RBC Urine WBC Ur Squamous Epith Cells Amorphous Sediment Urine Bacteria Urine Mucus Blood Type Antibody Screen 01/27/20 01/28/20 01/28/20 21:15 01:05 04:00 WBC 4.5 RBC 5.24 Hgb 14.0 Hct 48.2 MCV 92.0 MCH 26.7 L MCHC 29.0 L RDW Std Deviation 58.8 H RDW Coeff of Germán 17.7 H Plt Count 144 L MPV 10.4 Immature Gran % (Auto) 0.400 Neut % (Auto) 83.4 H Lymph % (Auto) 11.8 L [place] % (Auto) 4.2 Eos % (Auto) 0.0 Baso % (Auto) 0.2 Absolute Neuts (auto) 3.8 Absolute Lymphs (auto) 0.53 L Nucleated RBC % Differential Comment SCANNED PT INR APTT D-Dimer Quant (PE/DVT) Specimen Type Sample Site pH Bicarbonate Actual Total CO2 Base Excess O2 Saturation ABG pCO2 ABG pO2 O2 Delivery Device Liter Flow Sodium Potassium Chloride Carbon Dioxide Anion Gap BUN Creatinine Estim Creat Clear Calc Est GFR (MDRD) Af Amer Est GFR (MDRD) Non-Af BUN/Creatinine Ratio Glucose Lactic Acid Calcium Phosphorus Magnesium Total Bilirubin AST ALT Alkaline Phosphatase Troponin I 0.071 H B-Natriuretic Peptide Total Protein Albumin Globulin Albumin/Globulin Ratio Urine Color Yellow Urine Clarity Sl. Cloudy Urine pH 6.0 Ur Specific [place] 1.015 Urine Protein 30 H Urine Glucose (UA) Normal Urine Ketones Negative Urine Occult Blood 25 H Urine Nitrite Negative Urine Bilirubin Negative Urine Urobilinogen Normal Ur Leukocyte Esterase 500 H Urine RBC 0-5 SEEN Urine WBC 50-100 SEEN Ur Squamous Epith Cells 0-5 SEEN Amorphous Sediment 1+ URATE Urine Bacteria RARE Urine Mucus 0 SEEN Blood Type Antibody Screen 01/28/20 01/28/20 01/28/20 04:00 04:00 08:30 WBC RBC Hgb Hct MCV MCH MCHC RDW Std Deviation RDW Coeff of Germán Plt Count MPV Immature Gran % (Auto) Neut % (Auto) Lymph % (Auto) [place] % (Auto) Eos % (Auto) Baso % (Auto) Absolute Neuts (auto) Absolute Lymphs (auto) Nucleated RBC % Differential Comment PT INR APTT D-Dimer Quant (PE/DVT) Specimen Type Sample Site pH Bicarbonate Actual Total CO2 Base Excess O2 Saturation ABG pCO2 ABG pO2 O2 Delivery Device Liter Flow Sodium 141 Potassium 4.2 Chloride 104 Carbon Dioxide 29.0 Anion Gap 8 BUN 18 Creatinine 0.85 Estim Creat Clear Calc 69.18 Est GFR (MDRD) Af Amer 112 Est GFR (MDRD) Non-Af 92 BUN/Creatinine Ratio 21.2 H Glucose 133 H Lactic Acid Calcium 7.8 L Phosphorus 3.5 Magnesium 2.0 Total Bilirubin AST ALT Alkaline Phosphatase Troponin I 0.066 H B-Natriuretic Peptide 302.9 H Total Protein Albumin Globulin Albumin/Globulin Ratio Urine Color Urine Clarity Urine pH Ur Specific [place] Urine Protein Urine Glucose (UA) Urine Ketones Urine Occult Blood Urine Nitrite Urine Bilirubin Urine Urobilinogen Ur Leukocyte Esterase Urine RBC Urine WBC Ur Squamous Epith Cells Amorphous Sediment Urine Bacteria Urine Mucus Blood Type Antibody Screen 01/28/20 01/28/20 08:30 08:30 WBC RBC Hgb Hct MCV MCH MCHC RDW Std Deviation RDW Coeff of Germán Plt Count MPV Immature Gran % (Auto) Neut % (Auto) Lymph % (Auto) [place] % (Auto) Eos % (Auto) Baso % (Auto) Absolute Neuts (auto) Absolute Lymphs (auto) Nucleated RBC % Differential Comment PT INR APTT D-Dimer Quant (PE/DVT) Specimen Type Sample Site pH Bicarbonate Actual Total CO2 Base Excess O2 Saturation ABG pCO2 ABG pO2 O2 Delivery Device Liter Flow Sodium Potassium Chloride Carbon Dioxide Anion Gap BUN Creatinine Estim Creat Clear Calc Est GFR (MDRD) Af Amer Est GFR (MDRD) Non-Af BUN/Creatinine Ratio Glucose Lactic Acid Calcium Phosphorus Magnesium Total Bilirubin AST ALT Alkaline Phosphatase 137 H Troponin I B-Natriuretic Peptide Total Protein Albumin Globulin Albumin/Globulin Ratio Urine Color Urine Clarity Urine pH Ur Specific [place] Urine Protein Urine Glucose (UA) Urine Ketones Urine Occult Blood Urine Nitrite Urine Bilirubin Urine Urobilinogen Ur Leukocyte Esterase Urine RBC Urine WBC Ur Squamous Epith Cells Amorphous Sediment Urine Bacteria Urine Mucus Blood Type A POSITIVE Antibody Screen NEGATIVE - Other Studies Radiology: [] reviewed Other Studies: [] Route of nutrition/ use of supplements: [] Nutritional Intake: [] IV Site: [] Crews Catheter: [] - Physical Exam General: Alert, Cooperative, - - ill appearing HEENT: Atraumatic, PERRLA, EOMI Neck: Supple, No Nodes Lungs: Diminished Cardiovascular: Regular rate, Regular Rhythm Abdomen: Soft, Non Tender, Non-Distended Extremities: No edema Skin: No rashes IV Site: Peripheral, without redness Musculoskeletal: No Tenderness to Palpation of Joints or Extremities Neurological: Cranial nerves II-XII grossly intact - Assessment/Plan Antibiotics: [] Assessment/Plan: [] Active and Suspected Problems (Last Reviewed 01/22/20 @ 10:53 by Mariza Chase) Acute hypoxic respiratory insufficiency (Acute) COVID-19 (Acute) Dyspnea (Acute) Frequent falls (Acute) covid with acute hypoxic resp failure - steroids, anticoag, remdesivir, and plasma. D-dimer was 1.9. No PE on CT. Has h/o MRSA. Overall low suspicion for bacterial infection based on symptoms and imaging. Will stop vanc/zosyn. Will add on PCT. Will follow, thank you, d/w Dr. Macias
--- NOTE | 2020-01-28 14:17 | CASEMGMT ---
Patient is from [facility]. SW faxed updates to [facility]. SW attempted to call Merbharath at [facility], however the number was not going through. SW would dial the number and there was silence. KIM will continue to try and reach [facility]. Bhargavi RDZ MSW
--- NOTE | 2020-01-28 18:54 | NURSING ---
ed re chronic illness deferred till acute illnes resolving
[2020-01-28 20:54] LABS: Procalcitonin 0.08 ng/mL (0.00-0.09)
[2020-01-28] MEDS: Atorvastatin Calcium 40 MG Tablet PO (20:56)
[2020-01-28] MEDS: Sertraline 50 MG Tablet 25 MG PO (20:57)
[2020-01-28] MEDS: Losartan Potassium 50 MG Tablet PO (20:57)
--- NOTE | 2020-01-28 22:24 | NURSING ---
PER GITA AT [facility], PT HAS NOT RECEIVED A FLU VACCINE THIS YEAR. REQUESTS THAT WE CONTACT HIS DAUGHTER RAZIA TO OBTAIN CONSENT TO ADMINISTER ONE.
[2020-01-29] VITALS (21 sets, daily range): BP systolic 107–146; BP diastolic 76–113; PULSE 66–109; RESP 14–22; TEMP 36–36.8; O2SAT 93–97
--- NOTE | 2020-01-29 01:14 | CPS ---
Start pt. off on CPAP during the night. Initially, pt.'s return volumes were adequate. Nurse called me later on through the night and claimed the pt.'s tidal volumes and minute ventilation were very low (causing V60 to alarm continuously). I switched the pt. to BiPaP, in order to help him achieve more suitable ventilation. with a rate of 14 & FiO2 of 30%. Pt.'s ventilatory status has improved since doing this.
[2020-01-29 05:22] LABS: Hematocrit 45.8 % (40-54); Hemoglobin 13.7 g/dL (13.0-16.5); Mean Corp Hgb Conc 29.9 g/dL (32-36); Mean Corpuscular Volume 90.2 fL (80-94); Mean Platelet Vol. 10.4 fl (6.2-12.0); Platelet Count 131 K/mm3 (150-450); RBC Distribution Width CV 17.1 % (11.6-14.6); RBC Distribution Width SD 56.5 fl (35.1-43.9); Red Blood Count 5.08 M/mm3 (4.6-6.2); White Blood Count 2.9 K/mm3 (4.4-11.0)
[2020-01-29 05:35] LABS: ALB/GLOB Ratio 0.6 RATIO (0.9-2.4); AST(SGOT) 33 U/L (15-37); Alanine Aminotransfer ALT/SGPT 21 U/L (16-61); Albumin, Serum 2.4 g/dL (3.2-5.0); Alkaline Phosphatase 131 U/L (45-117); Anion Gap 4 (5-15); BUN 24 mg/dL (7-18); BUN/Creat Ratio 29.6 RATIO (10-20); Calcium,Total 7.9 mg/dL (8.5-10.1); Chloride 105 mmol/L (98-107); Creatinine, Serum 0.81 mg/dL (0.70-1.30); EST Glomerular Filtration Rate 97 mL/min (>60); Est Glom Filt Rate - Afr Amer 117 mL/min (>60); Globulin 3.8 g/dL (2.2-4.2); Glucose 157 mg/dL (74-106); Potassium 4.1 mmol/L (3.5-5.1); Protein, Total 6.2 g/dL (6.4-8.2); Sodium Level 141 mmol/L (136-145)
--- NOTE | 2020-01-29 05:58 | PN_ITS ---
Subjective: The patient was seen and examined at the bedside this morning. Events from the last 24 hours have been reviewed. The patient is currently afebrile, hemodynamically stable and maintaining appropriate oxygen saturations on 2 L/min via nasal cannula. The patient did tolerate BiPAP overnight. The patient remains on scheduled Eliquis, Decadron and remdesivir. He did receive convalescent plasma as well yesterday. Objective: The patient's most recent lab work, culture data and imaging studies have all been personally reviewed. Blood and urine cultures are pending. General: Alert, Cooperative, No apparent distress HEENT: Atraumatic, Normocephalic Oral: No Gingival or Mucosal Lesions/ Ulcerations Neck: Supple, No Nodes, Trachea Midline Lungs: Diminished Cardiovascular: Regular rate, Regular Rhythm Abdomen: Bowel Sounds Present, Soft, Non Tender, Obese Extremities: No clubbing, No cyanosis Skin: No breakdown Musculoskeletal: No Muscle Wasting Neurological: Cranial nerves II-XII grossly intact, Neuro grossly intact Psych/Mental Status: Normal Affect, Appropriate Vital Signs Temp Pulse Resp BP Pulse Ox 97.8 F 80 15 118/99 H 97 01/29/20 05:00 01/29/20 05:00 01/29/20 05:00 01/29/20 05:00 01/29/20 05:00 Oxygen Flow Rate (L/min) 2 Oxygen Delivery Method Bi-pap Weight: 307 lb Body Mass Index (BMI) 44.1 Finger Stick Blood Glucose 180 Intake and Output for Last 24 Hours 01/27/20 01/28/20 01/29/20 23:59 23:59 23:59 Intake Total 2140 / 2140 0 / 0 Output Total 1790 / 2040 600 / 600 Balance 350 / 100 -600 / -600 Labs (Last 48 Hours) 01/27/20 01/27/20 01/27/20 20:11 20:15 20:15 WBC 4.3 L RBC 5.50 Hgb 14.6 Hct 49.9 MCV 90.7 MCH 26.5 L MCHC 29.3 L RDW Std Deviation 58.0 H RDW Coeff of Germán 17.8 H Plt Count 160 MPV 10.3 Immature Gran % (Auto) 0.500 Neut % (Auto) 61.0 Lymph % (Auto) 26.0 [place] % (Auto) 12.0 H Eos % (Auto) 0.0 Baso % (Auto) 0.5 Absolute Neuts (auto) 2.7 Absolute Lymphs (auto) 1.13 Nucleated RBC % 0 Differential Comment PT 19.6 H INR 1.7 APTT 47.6 H D-Dimer Quant (PE/DVT) 1.90 H* Specimen Type Sample Site pH Bicarbonate Actual Total CO2 Base Excess O2 Saturation ABG pCO2 ABG pO2 O2 Delivery Device Liter Flow Sodium Cancelled Potassium Cancelled Chloride Cancelled Carbon Dioxide Cancelled Anion Gap Cancelled BUN Cancelled Creatinine Cancelled Estim Creat Clear Calc Cancelled Est GFR (MDRD) Af Amer Cancelled Est GFR (MDRD) Non-Af Cancelled BUN/Creatinine Ratio Cancelled Glucose Cancelled Lactic Acid Calcium Cancelled Phosphorus Magnesium Total Bilirubin Cancelled AST Cancelled ALT Cancelled Alkaline Phosphatase Cancelled Troponin I Cancelled B-Natriuretic Peptide Total Protein Cancelled Albumin Cancelled Globulin Cancelled Albumin/Globulin Ratio Cancelled Procalcitonin Urine Color Urine Clarity Urine pH Ur Specific [place] Urine Protein Urine Glucose (UA) Urine Ketones Urine Occult Blood Urine Nitrite Urine Bilirubin Urine Urobilinogen Ur Leukocyte Esterase Urine RBC Urine WBC Ur Squamous Epith Cells Amorphous Sediment Urine Bacteria Urine Mucus Blood Type Antibody Screen 01/27/20 01/27/20 01/27/20 20:15 20:44 20:55 WBC RBC Hgb Hct MCV MCH MCHC RDW Std Deviation RDW Coeff of Germán Plt Count MPV Immature Gran % (Auto) Neut % (Auto) Lymph % (Auto) [place] % (Auto) Eos % (Auto) Baso % (Auto) Absolute Neuts (auto) Absolute Lymphs (auto) Nucleated RBC % Differential Comment PT INR APTT D-Dimer Quant (PE/DVT) Specimen Type ART Sample Site L Radial pH 7.39 Bicarbonate Actual 31.2 H Total CO2 33 Base Excess 6 H O2 Saturation 94 L ABG pCO2 52.3 H ABG pO2 74 L O2 Delivery Device Cannula Liter Flow 6.0 Sodium 144 Potassium 3.9 Chloride 107 Carbon Dioxide 32.0 Anion Gap 5 BUN 19 H Creatinine 0.96 Estim Creat Clear Calc 61.26 Est GFR (MDRD) Af Amer 97 Est GFR (MDRD) Non-Af 80 BUN/Creatinine Ratio 19.8 Glucose 118 H Lactic Acid 1.1 Calcium 8.4 L Phosphorus Magnesium Total Bilirubin 0.40 AST 24 ALT 17 Alkaline Phosphatase 148 H Troponin I 0.070 H B-Natriuretic Peptide Total Protein 6.8 Albumin 2.7 L Globulin 4.1 Albumin/Globulin Ratio 0.7 L Procalcitonin Urine Color Urine Clarity Urine pH Ur Specific [place] Urine Protein Urine Glucose (UA) Urine Ketones Urine Occult Blood Urine Nitrite Urine Bilirubin Urine Urobilinogen Ur Leukocyte Esterase Urine RBC Urine WBC Ur Squamous Epith Cells Amorphous Sediment Urine Bacteria Urine Mucus Blood Type Antibody Screen 01/27/20 01/28/20 01/28/20 21:15 01:05 04:00 WBC 4.5 RBC 5.24 Hgb 14.0 Hct 48.2 MCV 92.0 MCH 26.7 L MCHC 29.0 L RDW Std Deviation 58.8 H RDW Coeff of Germán 17.7 H Plt Count 144 L MPV 10.4 Immature Gran % (Auto) 0.400 Neut % (Auto) 83.4 H Lymph % (Auto) 11.8 L [place] % (Auto) 4.2 Eos % (Auto) 0.0 Baso % (Auto) 0.2 Absolute Neuts (auto) 3.8 Absolute Lymphs (auto) 0.53 L Nucleated RBC % Differential Comment SCANNED PT INR APTT D-Dimer Quant (PE/DVT) Specimen Type Sample Site pH Bicarbonate Actual Total CO2 Base Excess O2 Saturation ABG pCO2 ABG pO2 O2 Delivery Device Liter Flow Sodium Potassium Chloride Carbon Dioxide Anion Gap BUN Creatinine Estim Creat Clear Calc Est GFR (MDRD) Af Amer Est GFR (MDRD) Non-Af BUN/Creatinine Ratio Glucose Lactic Acid Calcium Phosphorus Magnesium Total Bilirubin AST ALT Alkaline Phosphatase Troponin I 0.071 H B-Natriuretic Peptide Total Protein Albumin Globulin Albumin/Globulin Ratio Procalcitonin Urine Color Yellow Urine Clarity Sl. Cloudy Urine pH 6.0 Ur Specific [place] 1.015 Urine Protein 30 H Urine Glucose (UA) Normal Urine Ketones Negative Urine Occult Blood 25 H Urine Nitrite Negative Urine Bilirubin Negative Urine Urobilinogen Normal Ur Leukocyte Esterase 500 H Urine RBC 0-5 SEEN Urine WBC 50-100 SEEN Ur Squamous Epith Cells 0-5 SEEN Amorphous Sediment 1+ URATE Urine Bacteria RARE Urine Mucus 0 SEEN Blood Type Antibody Screen 01/28/20 01/28/20 01/28/20 04:00 04:00 08:30 WBC RBC Hgb Hct MCV MCH MCHC RDW Std Deviation RDW Coeff of Germán Plt Count MPV Immature Gran % (Auto) Neut % (Auto) Lymph % (Auto) [place] % (Auto) Eos % (Auto) Baso % (Auto) Absolute Neuts (auto) Absolute Lymphs (auto) Nucleated RBC % Differential Comment PT INR APTT D-Dimer Quant (PE/DVT) Specimen Type Sample Site pH Bicarbonate Actual Total CO2 Base Excess O2 Saturation ABG pCO2 ABG pO2 O2 Delivery Device Liter Flow Sodium 141 Potassium 4.2 Chloride 104 Carbon Dioxide 29.0 Anion Gap 8 BUN 18 Creatinine 0.85 Estim Creat Clear Calc 69.18 Est GFR (MDRD) Af Amer 112 Est GFR (MDRD) Non-Af 92 BUN/Creatinine Ratio 21.2 H Glucose 133 H Lactic Acid Calcium 7.8 L Phosphorus 3.5 Magnesium 2.0 Total Bilirubin AST ALT Alkaline Phosphatase Troponin I 0.066 H B-Natriuretic Peptide 302.9 H Total Protein Albumin Globulin Albumin/Globulin Ratio Procalcitonin Urine Color Urine Clarity Urine pH Ur Specific [place] Urine Protein Urine Glucose (UA) Urine Ketones Urine Occult Blood Urine Nitrite Urine Bilirubin Urine Urobilinogen Ur Leukocyte Esterase Urine RBC Urine WBC Ur Squamous Epith Cells Amorphous Sediment Urine Bacteria Urine Mucus Blood Type Antibody Screen 01/28/20 01/28/20 01/28/20 08:30 08:30 20:00 WBC RBC Hgb Hct MCV MCH MCHC RDW Std Deviation RDW Coeff of Germán Plt Count MPV Immature Gran % (Auto) Neut % (Auto) Lymph % (Auto) [place] % (Auto) Eos % (Auto) Baso % (Auto) Absolute Neuts (auto) Absolute Lymphs (auto) Nucleated RBC % Differential Comment PT INR APTT D-Dimer Quant (PE/DVT) Specimen Type Sample Site pH Bicarbonate Actual Total CO2 Base Excess O2 Saturation ABG pCO2 ABG pO2 O2 Delivery Device Liter Flow Sodium Potassium Chloride Carbon Dioxide Anion Gap BUN Creatinine Estim Creat Clear Calc Est GFR (MDRD) Af Amer Est GFR (MDRD) Non-Af BUN/Creatinine Ratio Glucose Lactic Acid Calcium Phosphorus Magnesium Total Bilirubin AST ALT Alkaline Phosphatase 137 H Troponin I B-Natriuretic Peptide Total Protein Albumin Globulin Albumin/Globulin Ratio Procalcitonin 0.08 Urine Color Urine Clarity Urine pH Ur Specific [place] Urine Protein Urine Glucose (UA) Urine Ketones Urine Occult Blood Urine Nitrite Urine Bilirubin Urine Urobilinogen Ur Leukocyte Esterase Urine RBC Urine WBC Ur Squamous Epith Cells Amorphous Sediment Urine Bacteria Urine Mucus Blood Type A POSITIVE Antibody Screen NEGATIVE 01/29/20 01/29/20 05:05 05:05 WBC 2.9 L RBC 5.08 Hgb 13.7 Hct 45.8 MCV 90.2 MCH 27.0 MCHC 29.9 L RDW Std Deviation 56.5 H RDW Coeff of Germán 17.1 H Plt Count 131 L MPV 10.4 Immature Gran % (Auto) Neut % (Auto) Lymph % (Auto) [place] % (Auto) Eos % (Auto) Baso % (Auto) Absolute Neuts (auto) Absolute Lymphs (auto) Nucleated RBC % Differential Comment PT INR APTT D-Dimer Quant (PE/DVT) Specimen Type Sample Site pH Bicarbonate Actual Total CO2 Base Excess O2 Saturation ABG pCO2 ABG pO2 O2 Delivery Device Liter Flow Sodium 141 Potassium 4.1 Chloride 105 Carbon Dioxide 32.0 Anion Gap 4 L BUN 24 H Creatinine 0.81 Estim Creat Clear Calc 72.60 Est GFR (MDRD) Af Amer 117 Est GFR (MDRD) Non-Af 97 BUN/Creatinine Ratio 29.6 H Glucose 157 H Lactic Acid Calcium 7.9 L Phosphorus Magnesium Total Bilirubin 0.30 AST 33 ALT 21 Alkaline Phosphatase 131 H Troponin I B-Natriuretic Peptide Total Protein 6.2 L Albumin 2.4 L Globulin 3.8 Albumin/Globulin Ratio 0.6 L Procalcitonin Urine Color Urine Clarity Urine pH Ur Specific [place] Urine Protein Urine Glucose (UA) Urine Ketones Urine Occult Blood Urine Nitrite Urine Bilirubin Urine Urobilinogen Ur Leukocyte Esterase Urine RBC Urine WBC Ur Squamous Epith Cells Amorphous Sediment Urine Bacteria Urine Mucus Blood Type Antibody Screen Clinical Impression(s) from Imaging Studies Chest X-Ray 01/27/20 20:40 IMPRESSION: No acute findings. Electronically Signed: Martha Monet MD at 21:17 EDT Tel , Service support , Chest CTA 01/27/20 21:14 IMPRESSION: Bibasilar airspace disease. Small bilateral pleural effusions. Coronary artery disease. Electronically Signed: Harjit Downs MD at 23:45 EDT , Service support , Medical Necessity - Tobacco Use Smoking Status: Never smoker Assessment/Plan All Active Problems (Last Reviewed 01/22/20 @ 10:53 by Mariza Chase) Acute hypoxic respiratory insufficiency (Acute) Bilateral pneumonia (Acute) COVID-19 (Acute) Dyspnea (Acute) History of bilateral hip replacements (Resolved) History of bilateral knee replacement (Resolved) Acute urinary tract infection (Acute) Acute urinary retention (Acute) Conjunctivitis (Acute) Asthma exacerbation (Acute) Abnormal nuclear stress test (Acute) Frequent falls (Acute) RECOMMENDATIONS: 1. Plan to continue Eliquis 5 mg twice daily. 2. Continue to wean supplemental oxygen to maintain saturations at or above 90%. 3. Continue Decadron 6 mg daily with plans to complete a 10-day treatment course. 4. Continue home Lasix regimen. 5. Continue remdesivir to complete treatment course. 6. Continue nocturnal Pap therapy given history of JEMAL. 7. The patient is medically stable for transfer out of the intensive care unit. IMPRESSIONS: 1. Acute hypoxemic respiratory failure secondary to Covid pneumonia and possible bibasilar bacterial pneumonia At this time, the patient will be continued on supplemental oxygen to maintain saturations at or above 90%. The patient appears to be responding to therapy including Decadron, remdesivir, Eliquis and scheduled Lasix. He has already received convalescent plasma. Oxygenation status is improving. Plan to continue supportive measures and wean oxygen as tolerated. 2. Chronic atrial fibrillation Continue home medication regimen. The patient remains rate controlled. 3. Obstructive sleep apnea The patient has known obstructive sleep apnea and reports compliance with nocturnal CPAP therapy. Plan to continue nocturnal Pap therapy per home regimen. 4. Morbid obesity/hypertension/diabetes mellitus Complicates care, management, recovery and prognosis. Continue home medications as indicated. This note was generated with [employer] software. It may contain incorrect words, spelling, and punctuation that were not noted in checking the note before signing. Inpatient E&M: 24023 Subs Hosp L3
--- NOTE | 2020-01-29 07:34 | PN_ITS ---
Patient Problems: Active and Suspected Problems (Last Reviewed 01/22/20 @ 10:53 by Mariza Chase) Acute hypoxic respiratory insufficiency (Acute) COVID-19 (Acute) Dyspnea (Acute) Frequent falls (Acute) Subjective: Patient seen and examined. He has no complaints this morning. He has remained hemodynamically stable. He is on 2 L of oxygen and tolerated BiPAP overnight. Review of systems otherwise negative. Labs and vitals reviewed. Vitals/I&O's: Vital Signs Temp Pulse Resp BP Pulse Ox 97.6 F L 85 17 113/79 97 01/29/20 07:00 01/29/20 07:00 01/29/20 07:00 01/29/20 07:00 01/29/20 07:00 Oxygen Flow Rate (L/min) 2 Oxygen Delivery Method Bi-pap Weight: 307 lb Body Mass Index (BMI) 44.1 Finger Stick Blood Glucose 180 Intake and Output for Last 24 Hours 01/27/20 01/28/20 01/29/20 23:59 23:59 23:59 Intake Total 2140 / 2140 0 / 0 Output Total 1790 / 2040 775 / 775 Balance 350 / 100 -775 / -775 General: Alert, Oriented x3, Cooperative HEENT: Atraumatic, PERRLA, EOMI, Normocephalic Oral: Moist Mucosa Neck: Supple, No JVD, Negative Carotid Bruits Lungs: Tachypneic, - - diminished breath sounds bibasally, no wheezes or crackles. on 2L of oxygen by nasal canula Cardiovascular: Normal S1, Normal S2, No murmurs, Tachycardic Abdomen: Bowel Sounds Present, Soft, Non Tender, Non-Distended, No Hepato- splenomegaly Extremities: No clubbing, No cyanosis, Capillary Refill Less than 3 Seconds, - - 2+ bipedal pitting edema Skin: No rashes, No breakdown Musculoskeletal: No Tenderness to Palpation of Joints or Extremities Lymphatic: No Cervical, Supraclavicular, or Inguinal Adenopathy Neurological: Cranial nerves II-XII grossly intact, Neuro grossly intact, Motor Exam 5/5 strength throughout Psych/Mental Status: Normal Affect, Appropriate, Alert and oriented to time, place, person, mood and affect Microbiology Past 72 Hours 01/27/20 21:15 Urine, Clean Catch Urine Culture - Final Pseudomonas aeroginosa Laboratory Results 01/28/20 08:30: B-Natriuretic Peptide 302.9 H 01/28/20 08:30: Blood Type A POSITIVE, Antibody Screen NEGATIVE 01/28/20 08:30: Alkaline Phosphatase 137 H 01/28/20 20:00: Procalcitonin 0.08 01/29/20 05:05: WBC 2.9 L, RBC 5.08, Hgb 13.7, Hct 45.8, MCV 90.2, MCH 27.0, MCHC 29.9 L, RDW Std Deviation 56.5 H, RDW Coeff of Germán 17.1 H, Plt Count 131 L, MPV 10.4 01/29/20 05:05: Sodium 141, Potassium 4.1, Chloride 105, Carbon Dioxide 32.0, Anion Gap 4 L, BUN 24 H, Creatinine 0.81, Estim Creat Clear Calc 72.60, Est GFR (MDRD) Af Amer 117, Est GFR (MDRD) Non-Af 97, BUN/Creatinine Ratio 29.6 H, Glucose 157 H, Calcium 7.9 L, Total Bilirubin 0.30, AST 33, ALT 21, Alkaline Phosphatase 131 H, Total Protein 6.2 L, Albumin 2.4 L, Globulin 3.8, Albumin/Globulin Ratio 0.6 L Diagnostic Data Chest X-Ray 01/27/20 20:40 IMPRESSION: No acute findings. Electronically Signed: Martha Monet MD at 21:17 EDT Tel , Service support , Chest CTA 01/27/20 21:14 IMPRESSION: Bibasilar airspace disease. Small bilateral pleural effusions. Coronary artery disease. Electronically Signed: Harjit Downs MD at 23:45 EDT , Service support , Current Medications Acetaminophen (Acetaminophen 325 Mg Tablet) 650 mg PO BID [facility] Last Admin: 01/28/20 20:57 Dose: 650 mg Documented by: Apixaban (Apixaban 5 Mg Tablet) 5 mg PO BID [facility] Last Admin: 01/28/20 20:57 Dose: 5 mg Documented by: Atorvastatin Calcium (Atorvastatin Calcium 40 Mg Tablet) 40 mg PO QHS [facility] Last Admin: 01/28/20 20:56 Dose: 40 mg Documented by: Calcium/Vitamin D (Calcium Carb/Vitamin D 1 Tablet Tablet) 1 tablet PO DAILY [facility] Last Admin: 01/28/20 11:01 Dose: 1 tablet Documented by: Carvedilol (Carvedilol 6.25 Mg Tablet) 6.25 mg PO BID [facility] Last Admin: 01/28/20 20:56 Dose: 6.25 mg Documented by: Dexamethasone (Dexamethasone 4 Mg Tablet) 6 mg PO DAILY@0800 [facility] Last Admin: 01/28/20 09:06 Dose: 6 mg Documented by: Diltiazem HCl (Diltiazem Cd 180 Mg Capsule) 180 mg PO DAILY [facility] Last Admin: 01/28/20 11:01 Dose: 180 mg Documented by: Furosemide (Furosemide 80 Mg Tablet) 80 mg PO BID@1000,1700 [facility] Last Admin: 01/28/20 17:55 Dose: 80 mg Documented by: Guaifenesin (Guaifenesin 1,200 Mg Tablet) 1,200 mg PO BID [facility] Last Admin: 01/28/20 20:56 Dose: 1,200 mg Documented by: Remdesivir (Investigational) (100 mg/ Sodium Chloride) 250 mls @ 125 mls/hr IV DAILY [facility]; Protocol Stop: 02/01/20 11:59 Losartan Potassium (Losartan Potassium 50 Mg Tablet) 50 mg PO QHS [facility] Last Admin: 01/28/20 20:57 Dose: 50 mg Documented by: Potassium Chloride (Potassium Chloride 20 Meq Tablet) 40 meq PO BIDCM [facility] Last Admin: 01/28/20 17:56 Dose: 40 meq Documented by: Sertraline HCl (Sertraline 50 Mg Tablet) 25 mg PO QHS [facility] Last Admin: 01/28/20 20:57 Dose: 25 mg Documented by: Sodium Chloride (0.9% Saline Lock 10 Ml Syringe) 10 - 40 ml IV UD PRN PRN Reason: SALINE FLUSH Last Admin: 01/28/20 13:00 Dose: 20 ml Documented by: Tamsulosin HCl (Tamsulosin Hcl 0.4 Mg Capsule) 0.4 mg PO DAILY [facility] Last Admin: 01/28/20 11:02 Dose: 0.4 mg Documented by: STROKE Vital Signs/Narrative: Vital Signs Temp Pulse Resp BP BP Pulse Ox 01/29/20 07:00 97.6 F L 85 17 113/79 97 01/29/20 06:00 97.8 F 76 15 107/76 97 01/29/20 05:00 97.8 F 80 15 118/99 H 97 01/29/20 04:00 97.8 F 82 16 121/94 H 96 01/29/20 03:36 79 15 97 Medical Necessity - Tobacco Use Smoking Status: Never smoker Assessment/Plan All Active Problems (Last Reviewed 01/22/20 @ 10:53 by Mariza Chase) Acute hypoxic respiratory insufficiency (Acute) Bilateral pneumonia (Acute) COVID-19 (Acute) Dyspnea (Acute) History of bilateral hip replacements (Resolved) History of bilateral knee replacement (Resolved) Acute urinary tract infection (Acute) Acute urinary retention (Acute) Conjunctivitis (Acute) Asthma exacerbation (Acute) Abnormal nuclear stress test (Acute) Frequent falls (Acute) # Acute hypoxic respiratory failure due to COVID 19 infection * now on 2L of oxygen by nasal cannula. * On IV Decadron and remdesivir * Titrate oxygen to maintain saturation above 90%. * Breathing treatments with bronchodilators. * #COVID-19 pneumonia * vancomycin and zosyn discontinued. Blood cultures pending. urine culture growing Pseudomonas aeruginosa * Management as above. * #A. fib: Mildly tachycardic. On Cardizem 180 mg daily and carvedilol 6.25 mg daily. On Eliquis for anticoagulation. #Type 2 diabetes mellitus: on ISS. Nikolai DANIELSON # hypertension: on losartan and carvedilol DVT prophylaxis: on eliquis. Inpatient E&M: 85096 [facility] Hosp L3
[2020-01-29] MEDS: dilTIAZem CD 180 MG Capsule PO (08:20)
[2020-01-29] MEDS: 0.9% Saline Lock 10 ML Syringe IV ×2 (08:20→21:15)
[2020-01-29] MEDS: Acetaminophen 325 MG Tablet 650 MG PO ×2 (08:21→21:12)
[2020-01-29] MEDS: dexAMETHasone 4 MG Tablet 6 MG PO (08:21)
[2020-01-29] MEDS: guaiFENesin 1,200 MG Tablet 1200 MG PO ×2 (08:21→21:11)
[2020-01-29] MEDS: Calcium Carb/Vitamin D 1 TABLET Tablet PO (08:22)
[2020-01-29] MEDS: Tamsulosin HCl 0.4 MG Capsule PO (08:22)
[2020-01-29] MEDS: APIXABAN 5 MG TABLET PO ×2 (08:22→21:12)
[2020-01-29] MEDS: Furosemide 80 MG Tablet PO ×2 (08:22→18:02)
[2020-01-29] MEDS: Carvedilol 6.25 MG Tablet PO ×2 (08:22→21:12)
--- NOTE | 2020-01-29 10:37 | CASEMGMT ---
KIM called Nohelia at [facility]. Patient is from their intermediate. KIM asked what patient will need in order to return to them. He said he can return whenever he is ready. He will go into his own room and quarantine. KIM asked if he would need any negative testing. 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 KIM will continue to follow for d/c back to [facility] when ready. Plan: Return to [facility] when ready. Bhargavi RDZ MSW
[2020-01-29] MEDS: Ciprofloxacin 500 MG Tablet PO ×2 (11:01→21:12)
--- NOTE | 2020-01-29 15:09 | PCM.PN.ID ---
Patient Problems: Active and Suspected Problems (Last Reviewed 01/22/20 @ 10:53 by Mariza Chase) Acute hypoxic respiratory insufficiency (Acute) COVID-19 (Acute) Dyspnea (Acute) Frequent falls (Acute) Subjective: Feeling about the same. No fever. No n/v/d. - Physical Exam Vitals/I&O's: Vital Signs Temp Pulse Resp BP Pulse Ox 97.9 F 85 18 138/99 H 94 01/29/20 13:32 01/29/20 13:32 01/29/20 13:32 01/29/20 13:32 01/29/20 13:32 Oxygen Flow Rate (L/min) 1 Oxygen Delivery Method Nasal Cannula Weight: 139.253 kg Body Mass Index (BMI) 44.1 Finger Stick Blood Glucose 180 Intake and Output for Last 24 Hours 01/27/20 01/28/20 01/29/20 23:59 23:59 23:59 Intake Total 2140 / 2140 1570 / 1570 Output Total 1790 / 2040 1350 / 1350 Balance 350 / 100 220 / 220 General: Alert, Cooperative, No apparent distress Lungs: Clear to auscultation, Normal air movement Cardiovascular: Regular rate, Regular Rhythm Abdomen: Soft, Non Tender, Non-Distended Skin: No rashes Microbiology Past 72 Hours 01/27/20 21:15 Urine, Clean Catch Urine Culture - Final Pseudomonas aeroginosa Laboratory Results 01/28/20 20:00: Procalcitonin 0.08 01/29/20 05:05: WBC 2.9 L, RBC 5.08, Hgb 13.7, Hct 45.8, MCV 90.2, MCH 27.0, MCHC 29.9 L, RDW Std Deviation 56.5 H, RDW Coeff of Germán 17.1 H, Plt Count 131 L, MPV 10.4 01/29/20 05:05: Sodium 141, Potassium 4.1, Chloride 105, Carbon Dioxide 32.0, Anion Gap 4 L, BUN 24 H, Creatinine 0.81, Estim Creat Clear Calc 72.60, Est GFR (MDRD) Af Amer 117, Est GFR (MDRD) Non-Af 97, BUN/Creatinine Ratio 29.6 H, Glucose 157 H, Calcium 7.9 L, Total Bilirubin 0.30, AST 33, ALT 21, Alkaline Phosphatase 131 H, Total Protein 6.2 L, Albumin 2.4 L, Globulin 3.8, Albumin/Globulin Ratio 0.6 L Current Medications Acetaminophen (Acetaminophen 325 Mg Tablet) 650 mg PO BID [facility] Last Admin: 01/29/20 08:21 Dose: 650 mg Documented by: Apixaban (Apixaban 5 Mg Tablet) 5 mg PO BID [facility] Last Admin: 01/29/20 08:22 Dose: 5 mg Documented by: Atorvastatin Calcium (Atorvastatin Calcium 40 Mg Tablet) 40 mg PO QHS [facility] Last Admin: 01/28/20 20:56 Dose: 40 mg Documented by: Calcium/Vitamin D (Calcium Carb/Vitamin D 1 Tablet Tablet) 1 tablet PO DAILY [facility] Last Admin: 01/29/20 08:22 Dose: 1 tablet Documented by: Carvedilol (Carvedilol 6.25 Mg Tablet) 6.25 mg PO BID [facility] Last Admin: 01/29/20 08:22 Dose: 6.25 mg Documented by: Ciprofloxacin HCl (Ciprofloxacin 500 Mg Tablet) 500 mg PO BID [facility] Last Admin: 01/29/20 11:01 Dose: 500 mg Documented by: Dexamethasone (Dexamethasone 4 Mg Tablet) 6 mg PO DAILY@0800 [facility] Last Admin: 01/29/20 08:21 Dose: 6 mg Documented by: Diltiazem HCl (Diltiazem Cd 180 Mg Capsule) 180 mg PO DAILY [facility] Last Admin: 01/29/20 08:20 Dose: 180 mg Documented by: Furosemide (Furosemide 80 Mg Tablet) 80 mg PO BID@1000,1700 [facility] Last Admin: 01/29/20 08:22 Dose: 80 mg Documented by: Guaifenesin (Guaifenesin 1,200 Mg Tablet) 1,200 mg PO BID [facility] Last Admin: 01/29/20 08:21 Dose: 1,200 mg Documented by: Remdesivir (Investigational) (100 mg/ Sodium Chloride) 250 mls @ 125 mls/hr IV DAILY [facility]; Protocol Stop: 02/01/20 11:59 Last Admin: 01/29/20 10:59 Dose: 125 mls/hr Documented by: Influenza Virus Vaccine Quadrival (Influenza Vaccine (6mos+)/Pf 0.5 Ml Syringe) 0.5 ml IM .ONCE ONE Stop: 01/30/20 10:01 Losartan Potassium (Losartan Potassium 50 Mg Tablet) 50 mg PO QHS [facility] Last Admin: 01/28/20 20:57 Dose: 50 mg Documented by: Potassium Chloride (Potassium Chloride 20 Meq Tablet) 40 meq PO BIDCM [facility] Last Admin: 01/29/20 08:21 Dose: 40 meq Documented by: Sertraline HCl (Sertraline 50 Mg Tablet) 25 mg PO QHS [facility] Last Admin: 01/28/20 20:57 Dose: 25 mg Documented by: Sodium Chloride (0.9% Saline Lock 10 Ml Syringe) 10 - 40 ml IV UD PRN PRN Reason: SALINE FLUSH Last Admin: 01/29/20 08:20 Dose: 10 ml Documented by: Tamsulosin HCl (Tamsulosin Hcl 0.4 Mg Capsule) 0.4 mg PO DAILY [facility] Last Admin: 01/29/20 08:22 Dose: 0.4 mg Documented by: Medical Necessity - Tobacco Use Smoking Status: Never smoker Route of nutrition/ use of supplements: [] Nutritional Intake: [] IV Site: [] Crews Catheter: [] - Assessment/Plan Antibiotics: [] Assessment/Plan: [] Active and Suspected Problems (Last Reviewed 01/22/20 @ 10:53 by Mariza Chase) Acute hypoxic respiratory insufficiency (Acute) COVID-19 (Acute) Dyspnea (Acute) Frequent falls (Acute) covid with acute hypoxic resp failure - steroids, anticoag, remdesivir, and plasma. D-dimer was 1.9. No PE on CT. Has h/o MRSA. Overall low suspicion for bacterial infection based on symptoms and imaging. Much improved, off abx. Will follow
[2020-01-29] MEDS: Sertraline 50 MG Tablet 25 MG PO (21:12)
[2020-01-29] MEDS: Losartan Potassium 50 MG Tablet PO (21:12)
[2020-01-29] MEDS: Atorvastatin Calcium 40 MG Tablet PO (21:14)
[2020-01-29] MEDS: Menthol/Lanolin/Calamine/Znox 113 GM Tube 1 APPLIC TOPICAL (21:17)
[2020-01-30] VITALS (19 sets, daily range): BP systolic 136–154; BP diastolic 105–110; PULSE 65–92; RESP 14–20; TEMP 36.3–36.6; O2SAT 86–98
[2020-01-30] MEDS: 0.9% Saline Lock 10 ML Syringe IV ×3 (05:11→12:20)
[2020-01-30 06:50] LABS: Absolute Lymphocyte Count 0.62 X10^3/uL (0.83-4.51); Absolute Neutrophil Count 2.5 X10^3/uL (2.0-7.7); Basophil# 0.01 X10^3/uL; Basophil% 0.3 % (0-1); Hematocrit 49.9 % (40-54); Hemoglobin 14.8 g/dL (13.0-16.5); Lymphocyte # 0.62 X10^3/ul (4.0); Lymphocyte % 18.5 % (19-41); Mean Corp Hgb Conc 29.7 g/dL (32-36); Mean Corpuscular Hgb 26.5 pg (27.0-32.0); Mean Corpuscular Volume 89.4 fL (80-94); Mean Platelet Vol. 10.2 fl (6.2-12.0); Monocyte# 0.24 X10^3/uL; Monocyte% 7.2 % (0-10); NRBC Flagged by Analyzer 0 % (0-5); Neutrophil # 2.45 X10^3/uL (2.7-7.7); Neutrophil % 73.1 % (47-70); POSITIVE MORPHOLOGY YES; Platelet Count 126 K/mm3 (150-450); RBC Distribution Width CV 17.4 % (11.6-14.6); RBC Distribution Width SD 55.5 fl (35.1-43.9); Red Blood Count 5.58 M/mm3 (4.6-6.2); White Blood Count 3.4 K/mm3 (4.4-11.0)
[2020-01-30 07:12] LABS: Anion Gap 5 (5-15); BUN 28 mg/dL (7-18); BUN/Creat Ratio 30.5 RATIO (10-20); Calcium,Total 8.2 mg/dL (8.5-10.1); Chloride 103 mmol/L (98-107); Creatinine, Serum 0.92 mg/dL (0.70-1.30); EST Glomerular Filtration Rate 84 mL/min (>60); Est Glom Filt Rate - Afr Amer 102 mL/min (>60); Estimated Creatinine Clearance 63.92 ml/min; Glucose 171 mg/dL (74-106); Potassium 4.1 mmol/L (3.5-5.1); Sodium Level 140 mmol/L (136-145)
[2020-01-30 07:17] LABS: Differential Indicated SCAN CRITERIA MET
[2020-01-30 07:18] LABS: Differential Comment SCANNED
[2020-01-30] MEDS: Menthol/Lanolin/Calamine/Znox 113 GM Tube 1 APPLIC TOPICAL ×2 (09:47→20:59)
[2020-01-30] MEDS: dexAMETHasone 4 MG Tablet 6 MG PO (09:47)
[2020-01-30] MEDS: guaiFENesin 1,200 MG Tablet 1200 MG PO ×2 (09:55→20:56)
[2020-01-30] MEDS: Tamsulosin HCl 0.4 MG Capsule PO (09:55)
[2020-01-30] MEDS: Carvedilol 6.25 MG Tablet PO ×2 (09:55→20:55)
[2020-01-30] MEDS: Furosemide 80 MG Tablet PO ×2 (09:55→17:08)
[2020-01-30] MEDS: Calcium Carb/Vitamin D 1 TABLET Tablet PO (09:55)
[2020-01-30] MEDS: APIXABAN 5 MG TABLET PO ×2 (09:56→20:57)
[2020-01-30] MEDS: Acetaminophen 325 MG Tablet 650 MG PO ×2 (09:56→20:55)
[2020-01-30] MEDS: Ciprofloxacin 500 MG Tablet PO ×2 (09:56→20:55)
[2020-01-30] MEDS: dilTIAZem CD 180 MG Capsule PO (09:57)
--- NOTE | 2020-01-30 13:17 | PN_ITS ---
Patient Problems: Active and Suspected Problems (Last Reviewed 01/22/20 @ 10:53 by Mariza Chase) Acute hypoxic respiratory insufficiency (Acute) COVID-19 (Acute) Dyspnea (Acute) Frequent falls (Acute) Subjective: The patient was seen and examined at the bedside this morning. Events from the last 24 hours have been reviewed. The patient is currently afebrile, hemodynamically stable and maintaining appropriate oxygen saturations on 2 L/min via nasal cannula. The patient has already received convalescent plasma and remains on Eliquis twice daily, Decadron and remdesivir. Objective: The patient's most recent lab work, culture data and imaging studies have all been personally reviewed. Urine culture was positive for Pseudomonas aeruginosa. Blood cultures have shown no growth to date. - Physical Exam Vitals/I&O's: Vital Signs Temp Pulse Resp BP Pulse Ox 97.5 F L 75 16 141/105 H 92 01/30/20 09:05 01/30/20 11:00 01/30/20 09:05 01/30/20 09:05 01/30/20 11:34 Oxygen Flow Rate (L/min) [At 2 REST on Room Air] Oxygen Flow Rate (L/min) 2 Oxygen Delivery Method Nasal Cannula Weight: 313 lb 4.43 oz Body Mass Index (BMI) 44.1 Finger Stick Blood Glucose 180 Intake and Output for Last 24 Hours 01/28/20 01/29/20 01/30/20 23:59 23:59 23:59 Intake Total 2140 / 2140 2060 / 2360 910 / 910 Output Total 1790 / 2040 1350 / 1350 Balance 350 / 100 710 / 1010 910 / 910 General: Alert, Cooperative, No apparent distress HEENT: Atraumatic, Normocephalic Oral: No Gingival or Mucosal Lesions/ Ulcerations Neck: Supple, No Nodes, Trachea Midline Lungs: No rhonchi, No wheeze, No rales, Diminished Cardiovascular: Regular rate, Regular Rhythm Abdomen: Bowel Sounds Present, Soft, Non Tender, Obese Extremities: No clubbing, No cyanosis Skin: No breakdown Musculoskeletal: No Muscle Wasting Neurological: Cranial nerves II-XII grossly intact, Neuro grossly intact Psych/Mental Status: Normal Affect, Appropriate Labs (Last 48 Hours) 01/28/20 01/29/20 01/29/20 20:00 05:05 05:05 WBC 2.9 L RBC 5.08 Hgb 13.7 Hct 45.8 MCV 90.2 MCH 27.0 MCHC 29.9 L RDW Std Deviation 56.5 H RDW Coeff of Germán 17.1 H Plt Count 131 L MPV 10.4 Immature Gran % (Auto) Neut % (Auto) Lymph % (Auto) [place] % (Auto) Eos % (Auto) Baso % (Auto) Absolute Neuts (auto) Absolute Lymphs (auto) Nucleated RBC % Differential Comment Sodium 141 Potassium 4.1 Chloride 105 Carbon Dioxide 32.0 Anion Gap 4 L BUN 24 H Creatinine 0.81 Estim Creat Clear Calc 72.60 Est GFR (MDRD) Af Amer 117 Est GFR (MDRD) Non-Af 97 BUN/Creatinine Ratio 29.6 H Glucose 157 H Calcium 7.9 L Total Bilirubin 0.30 AST 33 ALT 21 Alkaline Phosphatase 131 H Total Protein 6.2 L Albumin 2.4 L Globulin 3.8 Albumin/Globulin Ratio 0.6 L Procalcitonin 0.08 01/30/20 01/30/20 06:28 06:28 WBC 3.4 L RBC 5.58 Hgb 14.8 Hct 49.9 MCV 89.4 MCH 26.5 L MCHC 29.7 L RDW Std Deviation 55.5 H RDW Coeff of Germán 17.4 H Plt Count 126 L MPV 10.2 Immature Gran % (Auto) 0.900 Neut % (Auto) 73.1 H Lymph % (Auto) 18.5 L [place] % (Auto) 7.2 Eos % (Auto) 0.0 Baso % (Auto) 0.3 Absolute Neuts (auto) 2.5 Absolute Lymphs (auto) 0.62 L Nucleated RBC % 0 Differential Comment SCANNED Sodium 140 Potassium 4.1 Chloride 103 Carbon Dioxide 32.0 Anion Gap 5 BUN 28 H Creatinine 0.92 Estim Creat Clear Calc 63.92 Est GFR (MDRD) Af Amer 102 Est GFR (MDRD) Non-Af 84 BUN/Creatinine Ratio 30.5 H Glucose 171 H Calcium 8.2 L Total Bilirubin AST ALT Alkaline Phosphatase Total Protein Albumin Globulin Albumin/Globulin Ratio Procalcitonin Microbiology 01/27/20 21:13 Blood Culture (Wb) - Left Wrist Blood Culture - Preliminary No growth in 48 hours. 10/19/20 20:15 Blood Culture (Wb) - Anticubital Right Blood Culture - Preliminary No growth in 48 hours. 01/27/20 21:15 Urine, Clean Catch Urine Culture - Final Pseudomonas aeroginosa Clinical Impression(s) from Imaging Studies Chest X-Ray 01/27/20 20:40 IMPRESSION: No acute findings. Electronically Signed: Martha Monet MD at 21:17 EDT Tel , Service support , Chest CTA 01/27/20 21:14 IMPRESSION: Bibasilar airspace disease. Small bilateral pleural effusions. Coronary artery disease. Electronically Signed: Harjit Downs MD at 23:45 EDT , Service support , Current Medications Acetaminophen (Acetaminophen 325 Mg Tablet) 650 mg PO BID [facility] Last Admin: 01/30/20 09:56 Dose: 650 mg Documented by: Apixaban (Apixaban 5 Mg Tablet) 5 mg PO BID [facility] Last Admin: 01/30/20 09:56 Dose: 5 mg Documented by: Atorvastatin Calcium (Atorvastatin Calcium 40 Mg Tablet) 40 mg PO QHS [facility] Last Admin: 01/29/20 21:14 Dose: 40 mg Documented by: Calamine/Phenol (Menthol/Lanolin/Calamine/Znox 113 Gm Tube) 1 applic TOPICAL BID [facility]; Protocol Last Admin: 01/30/20 09:47 Dose: 1 applicatio Documented by: Calcium/Vitamin D (Calcium Carb/Vitamin D 1 Tablet Tablet) 1 tablet PO DAILY [facility] Last Admin: 01/30/20 09:55 Dose: 1 tablet Documented by: Carvedilol (Carvedilol 6.25 Mg Tablet) 6.25 mg PO BID [facility] Last Admin: 01/30/20 09:55 Dose: 6.25 mg Documented by: Ciprofloxacin HCl (Ciprofloxacin 500 Mg Tablet) 500 mg PO BID [facility] Last Admin: 01/30/20 09:56 Dose: 500 mg Documented by: Dexamethasone (Dexamethasone 4 Mg Tablet) 6 mg PO DAILY@0800 [facility] Last Admin: 01/30/20 09:47 Dose: 6 mg Documented by: Diltiazem HCl (Diltiazem Cd 180 Mg Capsule) 180 mg PO DAILY [facility] Last Admin: 01/30/20 09:57 Dose: 180 mg Documented by: Furosemide (Furosemide 80 Mg Tablet) 80 mg PO BID@1000,1700 [facility] Last Admin: 01/30/20 09:55 Dose: 80 mg Documented by: Guaifenesin (Guaifenesin 1,200 Mg Tablet) 1,200 mg PO BID [facility] Last Admin: 01/30/20 09:55 Dose: 1,200 mg Documented by: Remdesivir (Investigational) (100 mg/ Sodium Chloride) 250 mls @ 125 mls/hr IV DAILY [facility]; Protocol Stop: 02/01/20 11:59 Last Infusion: 01/30/20 11:53 Dose: Infused Documented by: Losartan Potassium (Losartan Potassium 50 Mg Tablet) 50 mg PO QHS [facility] Last Admin: 01/29/20 21:12 Dose: 50 mg Documented by: Potassium Chloride (Potassium Chloride 20 Meq Tablet) 40 meq PO BIDCM [facility] Last Admin: 01/30/20 09:56 Dose: 40 meq Documented by: Sertraline HCl (Sertraline 50 Mg Tablet) 25 mg PO QHS [facility] Last Admin: 01/29/20 21:12 Dose: 25 mg Documented by: Sodium Chloride (0.9% Saline Lock 10 Ml Syringe) 10 - 40 ml IV UD PRN PRN Reason: SALINE FLUSH Last Admin: 01/30/20 12:20 Dose: 10 ml Documented by: Tamsulosin HCl (Tamsulosin Hcl 0.4 Mg Capsule) 0.4 mg PO DAILY [facility] Last Admin: 01/30/20 09:55 Dose: 0.4 mg Documented by: Medical Necessity - Tobacco Use Smoking Status: Never smoker Assessment/Plan All Active Problems (Last Reviewed 01/22/20 @ 10:53 by Mariza Chase) Acute hypoxic respiratory insufficiency (Acute) Bilateral pneumonia (Acute) COVID-19 (Acute) Dyspnea (Acute) History of bilateral hip replacements (Resolved) History of bilateral knee replacement (Resolved) Acute urinary tract infection (Acute) Acute urinary retention (Acute) Conjunctivitis (Acute) Asthma exacerbation (Acute) Abnormal nuclear stress test (Acute) Frequent falls (Acute) RECOMMENDATIONS: 1. Continue Eliquis 5 mg twice daily. 2. Continue to wean supplemental oxygen to maintain saturations at or above 90%. 3. Continue Decadron 6 mg daily with plans to complete a 10-day treatment course. 4. Continue home Lasix regimen. 5. Continue remdesivir to complete treatment course. 6. Continue nocturnal Pap therapy given history of JEMAL. 7. Will sign off from a critical care perspective. Please call with any additional questions. IMPRESSIONS: 1. Acute hypoxemic respiratory failure secondary to Covid pneumonia and possible bibasilar bacterial pneumonia At this time, the patient will be continued on supplemental oxygen to maintain saturations at or above 90%. The patient appears to be responding to therapy including Decadron, remdesivir, Eliquis and scheduled Lasix. He has already received convalescent plasma. Oxygenation status is improving. Plan to continue supportive measures and wean oxygen as tolerated. 2. Chronic atrial fibrillation Continue home medication regimen. The patient remains rate controlled. 3. Obstructive sleep apnea The patient has known obstructive sleep apnea and reports compliance with nocturnal CPAP therapy. Plan to continue nocturnal Pap therapy per home regimen. 4. Morbid obesity/hypertension/diabetes mellitus Complicates care, management, recovery and prognosis. Continue home medications as indicated. This note was generated with [employer] dictation software. It may contain incorrect words, spelling, and punctuation that were not noted in checking the note before signing. Inpatient E&M: 47818 Subs Hosp L2
--- NOTE | 2020-01-30 14:26 | PN_ITS ---
Patient Problems: Active and Suspected Problems (Last Reviewed 01/22/20 @ 10:53 by Mariza Chase) Acute hypoxic respiratory insufficiency (Acute) COVID-19 (Acute) Dyspnea (Acute) Frequent falls (Acute) Subjective: Patient seen and examined. He has no complaints this morning and feels well. He remains on 2 L of oxygen. Review of symptoms otherwise negative. He has remained hemodynamically stable. Vitals/I&O's: Vital Signs Temp Pulse Resp BP Pulse Ox 97.5 F L 75 16 141/105 H 98 01/30/20 09:05 01/30/20 11:00 01/30/20 09:05 01/30/20 09:05 01/30/20 13:58 Oxygen Flow Rate (L/min) [At 2 REST on Room Air] Oxygen Flow Rate (L/min) 2 Oxygen Delivery Method Nasal Cannula Weight: 313 lb 4.43 oz Body Mass Index (BMI) 44.1 Finger Stick Blood Glucose 180 Intake and Output for Last 24 Hours 01/28/20 01/29/20 01/30/20 23:59 23:59 23:59 Intake Total 2140 / 2140 2060 / 2360 910 / 910 Output Total 1790 / 2040 1350 / 1350 Balance 350 / 100 710 / 1010 910 / 910 General: Alert, Oriented x3, Cooperative HEENT: Atraumatic, PERRLA, EOMI, Normocephalic Oral: Moist Mucosa Neck: Supple, No JVD, Negative Carotid Bruits Lungs: Tachypneic, - - diminished breath sounds bibasally, no wheezes or crackles. on 2L of oxygen by nasal canula Cardiovascular: Normal S1, Normal S2, No murmurs, Tachycardic Abdomen: Bowel Sounds Present, Soft, Non Tender, Non-Distended, No Hepato- splenomegaly Extremities: No clubbing, No cyanosis, Capillary Refill Less than 3 Seconds, - - 1+ bipedal pitting edema Skin: No rashes, No breakdown Musculoskeletal: No Tenderness to Palpation of Joints or Extremities Lymphatic: No Cervical, Supraclavicular, or Inguinal Adenopathy Neurological: Cranial nerves II-XII grossly intact, Neuro grossly intact, Motor Exam 5/5 strength throughout Psych/Mental Status: Normal Affect, Appropriate, Alert and oriented to time, pl caren, person, mood and affect Microbiology Past 72 Hours 01/27/20 21:13 Blood Culture (Wb) - Left Wrist Blood Culture - Preliminary No growth in 48 hours. 01/27/20 20:15 Blood Culture (Wb) - Anticubital Right Blood Culture - Preliminary No growth in 48 hours. 01/27/20 21:15 Urine, Clean Catch Urine Culture - Final Pseudomonas aeroginosa Laboratory Results 01/30/20 06:28: WBC 3.4 L, RBC 5.58, Hgb 14.8, Hct 49.9, MCV 89.4, MCH 26.5 L, MCHC 29.7 L, RDW Std Deviation 55.5 H, RDW Coeff of Germán 17.4 H, Plt Count 126 L, MPV 10.2, Immature Gran % (Auto) 0.900, Neut % (Auto) 73.1 H, Lymph % (Auto) 18.5 L, [place] % (Auto) 7.2, Eos % (Auto) 0.0, Baso % (Auto) 0.3, Absolute Neuts ( auto) 2.5, Absolute Lymphs (auto) 0.62 L, Nucleated RBC % 0, Differential Comment SCANNED 01/30/20 06:28: Sodium 140, Potassium 4.1, Chloride 103, Carbon Dioxide 32.0, Anion Gap 5, BUN 28 H, Creatinine 0.92, Estim Creat Clear Calc 63.92, Est GFR (MDRD) Af Amer 102, Est GFR (MDRD) Non-Af 84, BUN/Creatinine Ratio 30.5 H, Glucose 171 H, Calcium 8.2 L Diagnostic Data Chest X-Ray 01/27/20 20:40 IMPRESSION: No acute findings. Electronically Signed: Martha Monet MD at 21:17 EDT Tel , Service support , Chest CTA 01/27/20 21:14 IMPRESSION: Bibasilar airspace disease. Small bilateral pleural effusions. Coronary artery disease. Electronically Signed: Harjit Downs MD at 23:45 EDT , Service support , Current Medications Acetaminophen (Acetaminophen 325 Mg Tablet) 650 mg PO BID [facility] Last Admin: 01/30/20 09:56 Dose: 650 mg Documented by: Apixaban (Apixaban 5 Mg Tablet) 5 mg PO BID [facility] Last Admin: 01/30/20 09:56 Dose: 5 mg Documented by: Atorvastatin Calcium (Atorvastatin Calcium 40 Mg Tablet) 40 mg PO QHS [facility] Last Admin: 01/29/20 21:14 Dose: 40 mg Documented by: Calamine/Phenol (Menthol/Lanolin/Calamine/Znox 113 Gm Tube) 1 applic TOPICAL BID [facility]; Protocol Last Admin: 01/30/20 09:47 Dose: 1 applicatio Documented by: Calcium/Vitamin D (Calcium Carb/Vitamin D 1 Tablet Tablet) 1 tablet PO DAILY [facility] Last Admin: 01/30/20 09:55 Dose: 1 tablet Documented by: Carvedilol (Carvedilol 6.25 Mg Tablet) 6.25 mg PO BID [facility] Last Admin: 01/30/20 09:55 Dose: 6.25 mg Documented by: Ciprofloxacin HCl (Ciprofloxacin 500 Mg Tablet) 500 mg PO BID [facility] Last Admin: 01/30/20 09:56 Dose: 500 mg Documented by: Dexamethasone (Dexamethasone 4 Mg Tablet) 6 mg PO DAILY@0800 [facility] Last Admin: 01/30/20 09:47 Dose: 6 mg Documented by: Diltiazem HCl (Diltiazem Cd 180 Mg Capsule) 180 mg PO DAILY [facility] Last Admin: 01/30/20 09:57 Dose: 180 mg Documented by: Furosemide (Furosemide 80 Mg Tablet) 80 mg PO BID@1000,1700 [facility] Last Admin: 01/30/20 09:55 Dose: 80 mg Documented by: Guaifenesin (Guaifenesin 1,200 Mg Tablet) 1,200 mg PO BID [facility] Last Admin: 01/30/20 09:55 Dose: 1,200 mg Documented by: Remdesivir (Investigational) (100 mg/ Sodium Chloride) 250 mls @ 125 mls/hr IV DAILY [facility]; Protocol Stop: 02/01/20 11:59 Last Infusion: 01/30/20 11:53 Dose: Infused Documented by: Losartan Potassium (Losartan Potassium 50 Mg Tablet) 50 mg PO QHS [facility] Last Admin: 01/29/20 21:12 Dose: 50 mg Documented by: Potassium Chloride (Potassium Ch[facility] Admin: 01/30/20 09:56 Dose: 40 meq Documented by: Sertraline HCl (Sertraline 50 Mg Tablet) 25 mg PO QHS [facility] Last Admin: 01/29/20 21:12 Dose: 25 mg Documented by: Sodium Chloride (0.9% Saline Lock 10 Ml Syringe) 10 - 40 ml IV UD PRN PRN Reason: SALINE FLUSH Last Admin: 01/30/20 12:20 Dose: 10 ml Documented by: Tamsulosin HCl (Tamsulosin Hcl 0.4 Mg Capsule) 0.4 mg PO DAILY [facility] Last Admin: 01/30/20 09:55 Dose: 0.4 mg Documented by: STROKE Vital Signs/Narrative: Vital Signs Pulse Pulse Ox Pulse Ox 01/30/20 13:58 98 01/30/20 11:34 92 01/30/20 11:00 75 01/30/20 10:40 87 Medical Necessity - Tobacco Use Smoking Status: Never smoker Assessment/Plan All Active Problems (Last Reviewed 01/22/20 @ 10:53 by Mariza Cahse) Acute hypoxic respiratory insufficiency (Acute) Bilateral pneumonia (Acute) COVID-19 (Acute) Dyspnea (Acute) History of bilateral hip replacements (Resolved) History of bilateral knee replacement (Resolved) Acute urinary tract infection (Acute) Acute urinary retention (Acute) Conjunctivitis (Acute) Asthma exacerbation (Acute) Abnormal nuclear stress test (Acute) Frequent falls (Acute) # Acute hypoxic respiratory failure due to COVID 19 infection * now on 2L of oxygen by nasal cannula. * On IV Decadron and remdesivir * Titrate oxygen to maintain saturation above 90%. * Breathing treatments with bronchodilators. * #COVID-19 pneumonia * vancomycin and zosyn discontinued. Blood cultures showed no growth after 48 hours. urine culture growing Pseudomonas aeruginosa * Management as above. * # UTI: urine growin Pseudomonas aeruginosa, which was sensitive to zosyn. Pateint received zosyn, so will hold off on any more antiobiotics now. * #A. fib: rate controlled. On Cardizem 180 mg daily and carvedilol 6.25 mg daily. On Eliquis for anticoagulation. #Type 2 diabetes mellitus: on ISS. Acucchecks ACHS # hypertension: on losartan and carvedilol DVT prophylaxis: on eliquis. Disposition; for DC to SNF tomorrow Inpatient E&M: 12151 Subs Hosp L2
--- NOTE | 2020-01-30 14:41 | CASEMGMT ---
Addendum entered by Lilly Trevino 01/30/20 17:26: KIM attempted to call pt to update on [facility] not being able to accept pt back, pt didn't answer. SW will attempt tomorrow. Addendum entered by Lilly Trevino 01/30/20 16:59: SW received call from Nohelia at [facility] stating due to pt being COVID+ and being a holli lift at their facility they do not have the equipment to manage pt and pt's family will need to pick a new SNF. KIM asked Nohelia if staff at [facility] is able to update pt's family as well as it may be beneficial for the family to hear from [facility] the reasons as to why they cannot accept pt back. Nohelia states he will have staff update pt's family as well. Original Note: Social Work Note KIM placed a call to [facility] and spoke with RN. RN states [facility] is working on moving their COVID+ patients to new unit, moving equipment, cleaning, pt needs Holli Lift and they will need to get Holli Lift arranged. RN requesting discharge tomorrow. KIM updated physician. Plan: Return to [facility], likely tomorrow if [facility] is able to get pt's room arranged Lilly Trevino [employer]ING [employer], [employer]
--- NOTE | 2020-01-30 14:53 | PN.ID_ITS ---
Patient Problems: Active and Suspected Problems (Last Reviewed 01/22/20 @ 10:53 by Mariza Chase) Acute hypoxic respiratory insufficiency (Acute) COVID-19 (Acute) Dyspnea (Acute) Frequent falls (Acute) Subjective: Feeling ok today, no new complaints, no fever, no nausea - Physical Exam Vitals/I&O's: Vital Signs Temp Pulse Resp BP Pulse Ox 97.5 F L 75 16 141/105 H 98 01/30/20 09:05 01/30/20 11:00 01/30/20 09:05 01/30/20 09:05 01/30/20 13:58 Oxygen Flow Rate (L/min) [At 2 REST on Room Air] Oxygen Flow Rate (L/min) 2 Oxygen Delivery Method Nasal Cannula Weight: 142.1 kg Body Mass Index (BMI) 44.1 Finger Stick Blood Glucose 180 Intake and Output for Last 24 Hours 01/28/20 01/29/20 01/30/20 23:59 23:59 23:59 Intake Total 2140 / 2140 2060 / 2360 910 / 910 Output Total 1790 / 2040 1350 / 1350 Balance 350 / 100 710 / 1010 910 / 910 General: Alert, Cooperative, No apparent distress Lungs: Diminished Cardiovascular: Regular rate, Regular Rhythm Abdomen: Soft, Non Tender, Non-Distended Skin: No rashes Microbiology Past 72 Hours 01/27/20 21:13 Blood Culture (Wb) - Left Wrist Blood Culture - Preliminary No growth in 48 hours. 01/27/20 20:15 Blood Culture (Wb) - Anticubital Right Blood Culture - Preliminary No growth in 48 hours. 01/27/20 21:15 Urine, Clean Catch Urine Culture - Final Pseudomonas aeroginosa Laboratory Results 01/30/20 06:28: WBC 3.4 L, RBC 5.58, Hgb 14.8, Hct 49.9, MCV 89.4, MCH 26.5 L, MCHC 29.7 L, RDW Std Deviation 55.5 H, RDW Coeff of Germán 17.4 H, Plt Count 126 L, MPV 10.2, Immature Gran % (Auto) 0.900, Neut % (Auto) 73.1 H, Lymph % (Auto) 18.5 L, Cooper % (Auto) 7.2, Eos % (Auto) 0.0, Baso % (Auto) 0.3, Absolute Neuts (auto) 2.5, Absolute Lymphs (auto) 0.62 L, Nucleated RBC % 0, Differential Comment SCANNED 01/30/20 06:28: Sodium 140, Potassium 4.1, Chloride 103, Carbon Dioxide 32.0, Anion Gap 5, BUN 28 H, Creatinine 0.92, Estim Creat Clear Calc 63.92, Est GFR (MDRD) Af Amer 102, Est GFR (MDRD) Non-Af 84, BUN/Creatinine Ratio 30.5 H, Glucose 171 H, Calcium 8.2 L Current Medications Acetaminophen (Acetaminophen 325 Mg Tablet) 650 mg PO BID [facility] Last Admin: 01/30/20 09:56 Dose: 650 mg Documented by: Apixaban (Apixaban 5 Mg Tablet) 5 mg PO BID [facility] Last Admin: 01/30/20 09:56 Dose: 5 mg Documented by: Atorvastatin Calcium (Atorvastatin Calcium 40 Mg Tablet) 40 mg PO QHS [facility] Last Admin: 01/29/20 21:14 Dose: 40 mg Documented by: Calamine/Phenol (Menthol/Lanolin/Calamine/Znox 113 Gm Tube) 1 applic TOPICAL BID [facility]; Protocol Last Admin: 01/30/20 09:47 Dose: 1 applicatio Documented by: Calcium/Vitamin D (Calcium Carb/Vitamin D 1 Tablet Tablet) 1 tablet PO DAILY [facility] Last Admin: 01/30/20 09:55 Dose: 1 tablet Documented by: Carvedilol (Carvedilol 6.25 Mg Tablet) 6.25 mg PO BID [facility] Last Admin: 01/30/20 09:55 Dose: 6.25 mg Documented by: Ciprofloxacin HCl (Ciprofloxacin 500 Mg Tablet) 500 mg PO BID [facility] Last Admin: 01/30/20 09:56 Dose: 500 mg Documented by: Dexamethasone (Dexamethasone 4 Mg Tablet) 6 mg PO DAILY@0800 [facility] Last Admin: 01/30/20 09:47 Dose: 6 mg Documented by: Diltiazem HCl (Diltiazem Cd 180 Mg Capsule) 180 mg PO DAILY [facility] Last Admin: 01/30/20 09:57 Dose: 180 mg Documented by: Furosemide (Furosemide 80 Mg Tablet) 80 mg PO BID@1000,1700 [facility] Last Admin: 01/30/20 09:55 Dose: 80 mg Documented by: Guaifenesin (Guaifenesin 1,200 Mg Tablet) 1,200 mg PO BID [facility] Last Admin: 01/30/20 09:55 Dose: 1,200 mg Documented by: Remdesivir (Investigational) (100 mg/ Sodium Chloride) 250 mls @ 125 mls/hr IV DAILY [facility]; Protocol Stop: 02/01/20 11:59 Last Infusion: 01/30/20 11:53 Dose: Infused Documented by: Losartan Potassium (Losartan Potassium 50 Mg Tablet) 50 mg PO QHS [facility] Last Admin: 01/29/20 21:12 Dose: 50 mg Documented by: Potassium Chloride (Potassium Chloride 20 Meq Tablet) 40 meq PO BIDCM [facility] Last Admin: 01/30/20 09:56 Dose: 40 meq Documented by: Sertraline HCl (Sertraline 50 Mg Tablet) 25 mg PO QHS [facility] Last Admin: 01/29/20 21:12 Dose: 25 mg Documented by: Sodium Chloride (0.9% Saline Lock 10 Ml Syringe) 10 - 40 ml IV UD PRN PRN Reason: SALINE FLUSH Last Admin: 01/30/20 12:20 Dose: 10 ml Documented by: Tamsulosin HCl (Tamsulosin Hcl 0.4 Mg Capsule) 0.4 mg PO DAILY [facility] Last Admin: 01/30/20 09:55 Dose: 0.4 mg Documented by: Medical Necessity - Tobacco Use Smoking Status: Never smoker Route of nutrition/ use of supplements: [] Nutritional Intake: [] IV Site: [] Crews Catheter: [] - Assessment/Plan Antibiotics: [] Assessment/Plan: [] Active and Suspected Problems (Last Reviewed 01/22/20 @ 10:53 by Mariza Chase) Acute hypoxic respiratory insufficiency (Acute) COVID-19 (Acute) Dyspnea (Acute) Frequent falls (Acute) covid with acute hypoxic resp failure - steroids, anticoag, remdesivir, and plasma. D-dimer was 1.9. No PE on CT. Has h/o MRSA. Overall low suspicion for bacterial pneumonia based on symptoms and imaging. Much improved, cont po cipro for short course for PsA in [place]. Will follow
[2020-01-30] MEDS: Atorvastatin Calcium 40 MG Tablet PO (20:55)
[2020-01-30] MEDS: Losartan Potassium 50 MG Tablet PO (20:55)
[2020-01-30] MEDS: Sertraline 50 MG Tablet 25 MG PO (20:56)
--- NOTE | 2020-01-30 23:35 | CPS ---
reduced BiPAP pressures to 14/10 for pt comfort
[2020-01-31] VITALS (10 sets, daily range): BP systolic 153–157; BP diastolic 111–115; PULSE 63–85; RESP 14–18; TEMP 36.4–36.7; O2SAT 94–98
[2020-01-31 08:11] LABS: Absolute Lymphocyte Count 0.58 X10^3/uL (0.83-4.51); Absolute Neutrophil Count 2.9 X10^3/uL (2.0-7.7); Hematocrit 48.9 % (40-54); Lymphocyte # 0.58 X10^3/ul (4.0); Lymphocyte % 15.6 % (19-41); Mean Corp Hgb Conc 30.7 g/dL (32-36); Mean Corpuscular Hgb 26.4 pg (27.0-32.0); Mean Corpuscular Volume 86.1 fL (80-94); Mean Platelet Vol. 10.4 fl (6.2-12.0); Monocyte# 0.27 X10^3/uL; Monocyte% 7.3 % (0-10); NRBC Flagged by Analyzer 0 % (0-5); Neutrophil # 2.86 X10^3/uL (2.7-7.7); Neutrophil % 76.8 % (47-70); POSITIVE DIFFERENTIAL YES; Platelet Count 107 K/mm3 (150-450); RBC Distribution Width CV 16.9 % (11.6-14.6); RBC Distribution Width SD 52.9 fl (35.1-43.9); Red Blood Count 5.68 M/mm3 (4.6-6.2); White Blood Count 3.7 K/mm3 (4.4-11.0)
[2020-01-31 08:15] LABS: Differential Indicated SCAN CRITERIA MET
[2020-01-31 08:30] LABS: Anion Gap 5 (5-15); BUN 28 mg/dL (7-18); Calcium,Total 7.9 mg/dL (8.5-10.1); Chloride 102 mmol/L (98-107); Creatinine, Serum 0.74 mg/dL (0.70-1.30); EST Glomerular Filtration Rate 108 mL/min (>60); Est Glom Filt Rate - Afr Amer 131 mL/min (>60); Estimated Creatinine Clearance 58.81 ml/min; Glucose 192 mg/dL (74-106); Potassium 3.7 mmol/L (3.5-5.1); Sodium Level 140 mmol/L (136-145)
[2020-01-31 08:36] LABS: Differential Comment SCANNED
[2020-01-31] MEDS: Tamsulosin HCl 0.4 MG Capsule PO (09:00)
[2020-01-31] MEDS: Ciprofloxacin 500 MG Tablet PO (09:00)
[2020-01-31] MEDS: dexAMETHasone 4 MG Tablet 6 MG PO (09:00)
[2020-01-31] MEDS: Calcium Carb/Vitamin D 1 TABLET Tablet PO (09:00)
[2020-01-31] MEDS: guaiFENesin 1,200 MG Tablet 1200 MG PO (09:00)
[2020-01-31] MEDS: Carvedilol 6.25 MG Tablet PO (09:00)
[2020-01-31] MEDS: dilTIAZem CD 180 MG Capsule PO (09:01)
[2020-01-31] MEDS: Furosemide 80 MG Tablet PO (09:01)
[2020-01-31] MEDS: APIXABAN 5 MG TABLET PO (09:01)
[2020-01-31] MEDS: Menthol/Lanolin/Calamine/Znox 113 GM Tube 1 APPLIC TOPICAL (09:01)
[2020-01-31] MEDS: Acetaminophen 325 MG Tablet 650 MG PO (09:01)
--- NOTE | 2020-01-31 12:15 | PCM.TXEXTCAR ---
- Diet 01/28/20 00:46 Diet: Cardiac - Heart Healthy Food consistency:: Regular Liquid Consistency:: Regular/Thin Type of Dietary Supplement:: Srikanth Diet Comments: Srikanth w/Breakfast and Dinner - Routine Orders/Code Status Enema Type: Fleetz Enema Frequency: Daily PRN Suppository Type: Dulcolax 10mg Suppository Frequency: Daily PRN O2 Frequency: PRN Keep PO Greater than or Equal to (%): 90 - Wound(s) Left buttock Wound Type: Pressure Injury Right 2nd and 3rd toes Wound Type: Pressure Injury rt heel Wound Type: Neuropathic/Diabetic Foot Ulcer - Therapies Weight Bearing: Weight bearing as tolerated Physical Therapy: Eval and Treat Occupational Therapy: Eval and Treat - Allergies/Procedures Done in Hospital Allergies/Adverse Reactions: Allergies No Known Allergies Allergy (Verified 01/22/20 10:53) Procedures: None - Type of Care/Length of Stay Estimated LOS: More Than 30 Days Type of Care Needed: Skilled Rehab Potential: Fair Prognosis: Fair - Additional Orders/Day of Discharge Additional Orders: keep isolated till February 08, to make 14 days of isolation since diabnosis on January 24 2020 Day of Discharge: 01/31/20 - Dietary and Speech Recommendations Dietitian Recommendations/Changes: Will continue Srikanth BID w/ meals d/t pressure injury. Will change to CHO Control Cardiac d/t elevated gluc and hx DM - Follow Up Care Primary Care Physician: Mario Lowe MD [Primary Care Provider] - Please follow up with your Primary Care Physician in: 1-2 weeks
--- NOTE | 2020-01-31 12:25 | PCM.DC.SUM ---
Discharge Date and Diagnosis - Problem List Patient Problems: Active and Suspected Problems (Last Reviewed 01/22/20 @ 10:53 by Mariza Chase) Acute hypoxic respiratory insufficiency (Acute) COVID-19 (Acute) Dyspnea (Acute) Frequent falls (Acute) Date of Admission: 01/27/20 Date of Discharge: 01/31/20 - Primary Discharge Diagnosis Acute Problems: Active Problems (Last Reviewed 01/22/20 @ 10:53 by Mariza Chase) Acute hypoxic respiratory insufficiency (Acute) COVID-19 (Acute) Dyspnea (Acute) Frequent falls (Acute) - Secondary Discharge Diagnosis Chronic Problems: Chronic Problems (Last Reviewed 01/22/20 @ 10:53 by Mariza Chase) Osteoarthritis (Chronic) Obstructive sleep apnea syndrome (Chronic) Chronic kidney disease, stage II (mild) (Chronic) Cataract (Chronic) Obesity (Chronic) bmi 44 Gastroesophageal reflux disease (Chronic) Type 2 diabetes mellitus (Chronic) Atrial flutter (Chronic) Atrial fibrillation (Chronic) Shortness of breath (Chronic) Physical debility (Chronic) 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 Electronically Signed: Martha Monet MD at 21:17 EDT Tel , Service support , Chest CTA 01/27/20 21:14 IMPRESSION: Bibasilar airspace disease. Small bilateral pleural effusions. Coronary artery disease. 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 He resided in a skilled nursing and had tested positive for Covid on January 23. In the ED, he was tachypneic and hypoxemic but was afebrile. Labs showed a normal white cell count. D-dimer was elevated. Chemistry was unremarkable and ABG done on 6 L of oxygen showed pH of 7.39 with PCO2 of 52 and PO2 of 74. Troponin was 0.070 and urine analysis was positive for leukocyte esterase with rare bacteria. CT of the chest done showed no PE but showed bibasilar airspace disease with bilateral pleural effusions. He was admitted and managed for acute hypoxic respiratory failure due to COVID-19 pneumonia started on IV vancomycin and Zosyn. He was continued on his Eliquis as well as carvedilol and Cardizem for A. fib. Patient shortness of breath gradually improved. He was also on IV Decadron and remdesivir and completed a course of both. Patient is diseases and pulmonology were consulted. Patient shortness of breath gradually improved he was still needing oxygen at his baseline. Patient was on 2 L of oxygen at night at home. He remained stable and was transitioned from IV vancomycin and Zosyn to p.o. ciprofloxacin after urine culture Pseudomonas. Blood cultures were negative. He was discharged back to his skilled nursing on 01/31/2020. He is to follow-up with his primary care doctor within 1 to 2 weeks. Patient seen and examined prior to discharge. He had no complaints and felt well and was eating breakfast comfortably. He was on 2 L of oxygen. Review of symptoms otherwise negative. Labs and vitals reviewed. Home medication reviewed and reconciled. O/E: Vital Signs Temp Pulse Resp BP Pulse Ox 97.6 F L 82 16 153/115 H 95 01/31/20 08:45 01/31/20 11:00 01/31/20 08:45 01/31/20 08:45 01/31/20 11:46 [] General: Alert, Oriented x3, Cooperative HEENT: Atraumatic, PERRLA, EOMI, Normocephalic Oral: Moist Mucosa Neck: Supple, No JVD, Negative Carotid Bruits Lungs: Tachypneic, - - diminished breath sounds bibasally, no wheezes or crackles. on 2L of oxygen by nasal canula Cardiovascular: Normal S1, Normal S2, No murmurs, Tachycardic Abdomen: Bowel Sounds Present, Soft, Non Tender, Non-Distended, No Hepato-splenomegaly Extremities: No clubbing, No cyanosis, Capillary Refill Less than 3 Seconds, - - minimal bipedal pitting edema Skin: No rashes, No breakdown Musculoskeletal: No Tenderness to Palpation of Joints or Extremities Lymphatic: No Cervical, Supraclavicular, or Inguinal Adenopathy Neurological: Cranial nerves II-XII grossly intact, Neuro grossly intact, Motor Exam 5/5 strength throughout Psych/Mental Status: Normal Affect, Appropriate, Alert and oriented to time, place, person, mood and affect Patient being discharged back to his skilled nursing today. He was discharged with a prescription for p.o. ciprofloxacin 500 milligram twice daily for 5 days. Patient Problems: Active and Suspected Problems (Last Reviewed 01/22/20 @ 10:53 by Mariza Chase) Acute hypoxic respiratory insufficiency (Acute) COVID-19 (Acute) Dyspnea (Acute) Frequent falls (Acute) - Physical Exam Vitals/I&O's: Vital Signs Temp Pulse Resp BP Pulse Ox 97.6 F L 64 16 153/115 H 96 01/31/20 08:45 01/31/20 08:45 01/31/20 08:45 01/31/20 08:45 01/31/20 08:45 Oxygen Flow Rate (L/min) [At 2 REST on Room Air] Oxygen Flow Rate (L/min) 2 Oxygen Delivery Method Bi-pap Weight: 313 lb 7.957 oz Body Mass Index (BMI) 44.1 Finger Stick Blood Glucose 180 Intake and Output for Last 24 Hours 01/29/20 01/30/20 01/31/20 23:59 23:59 23:59 Intake Total 2060 / 2360 1150 / 1150 610 / 610 Output Total 1350 / 1350 Balance 710 / 1010 1150 / 1150 610 / 610 Microbiology Past 72 Hours 01/27/20 21:13 Blood Culture (Wb) - Left Wrist Blood Culture - Preliminary No growth in 48 hours. 01/27/20 20:15 Blood Culture (Wb) - Anticubital Right Blood Culture - Preliminary No growth in 48 hours. 01/27/20 21:15 Urine, Clean Catch Urine Culture - Final Pseudomonas aeroginosa Laboratory Results 01/31/20 07:48: WBC 3.7 L, RBC 5.68, Hgb 15.0, Hct 48.9, MCV 86.1, MCH 26.4 L, MCHC 30.7 L, RDW Std Deviation 52.9 H, RDW Coeff of Germán 16.9 H, Plt Count 107 L, MPV 10.4, Immature Gran % (Auto) 0.300, Neut % (Auto) 76.8 H, Lymph % (Auto) 15.6 L, [place] % (Auto) 7.3, Eos % (Auto) 0.0, Baso % (Auto) 0.0, Absolute Neuts (auto) 2.9, Absolute Lymphs (auto) 0.58 L, Nucleated RBC % 0, Differential Comment SCANNED, Diff Path Review August01/31/20 07:48: Sodium 140, Potassium 3.7, Chloride 102, Carbon Dioxide 33.0 H, Anion Gap 5, BUN 28 H, Creatinine 0.74, Estim Creat Clear Calc 58.81, Est GFR (MDRD) Af Amer 131, Est GFR (MDRD) Non-Af 108, BUN/Creatinine Ratio 38.0 H, Glucose 192 H, Calcium 7.9 L Current Medications Acetaminophen (Acetaminophen 325 Mg Tablet) 650 mg PO BID [facility] Last Admin: 01/31/20 09:01 Dose: 650 mg Documented by: Apixaban (Apixaban 5 Mg Tablet) 5 mg PO BID [facility] Last Admin: 01/31/20 09:01 Dose: 5 mg Documented by: Atorvastatin Calcium (Atorvastatin Calcium 40 Mg Tablet) 40 mg PO QHS [facility] Last Admin: 01/30/20 20:55 Dose: 40 mg Documented by: Calamine/Phenol (Menthol/Lanolin/Calamine/Znox 113 Gm Tube) 1 applic TOPICAL BID [facility]; Protocol Last Admin: 01/31/20 09:01 Dose: 1 applicatio Documented by: Calcium/Vitamin D (Calcium Carb/Vitamin D 1 Tablet Tablet) 1 tablet PO DAILY [facility] Last Admin: 01/31/20 09:00 Dose: 1 tablet Documented by: Carvedilol (Carvedilol 6.25 Mg Tablet) 6.25 mg PO BID [facility] Last Admin: 01/31/20 09:00 Dose: 6.25 mg Documented by: Ciprofloxacin HCl (Ciprofloxacin 500 Mg Tablet) 500 mg PO BID [facility] Last Admin: 01/31/20 09:00 Dose: 500 mg Documented by: Dexamethasone (Dexamethasone 4 Mg Tablet) 6 mg PO DAILY@0800 [facility] Last Admin: 01/31/20 09:00 Dose: 6 mg Documented by: Diltiazem HCl (Diltiazem Cd 180 Mg Capsule) 180 mg PO DAILY [facility] Last Admin: 01/31/20 09:01 Dose: 180 mg Documented by: Furosemide (Furosemide 80 Mg Tablet) 80 mg PO BID@1000,1700 [facility] Last Admin: 01/31/20 09:01 Dose: 80 mg Documented by: Guaifenesin (Guaifenesin 1,200 Mg Tablet) 1,200 mg PO BID [facility] Last Admin: 01/31/20 09:00 Dose: 1,200 mg Documented by: Remdesivir (Investigational) (100 mg/ Sodium Chloride) 250 mls @ 125 mls/hr IV DAILY [facility]; Protocol Stop: 02/01/20 11:59 Last Infusion: 01/31/20 12:15 Dose: Infused Documented by: Losartan Potassium (Losartan Potassium 50 Mg Tablet) 50 mg PO QHS [facility] Last Admin: 01/30/20 20:55 Dose: 50 mg Documented by: Potassium Chloride ([facility] 20 Meq [facility]t) [facility] Admin: 01/31/20 09:00 Dose: 40 meq Documented by: Sertraline HCl (Sertraline 50 Mg Tablet) 25 mg PO QHS [facility] Last Admin: 01/30/20 20:56 Dose: 25 mg Documented by: Sodium Chloride (0.9% Saline Lock 10 Ml Syringe) 10 - 40 ml IV UD PRN PRN Reason: SALINE FLUSH Last Admin: 01/30/20 12:20 Dose: 10 ml Documented by: Tamsulosin HCl (Tamsulosin Hcl 0.4 Mg Capsule) 0.4 mg PO DAILY [facility] Last Admin: 01/31/20 09:00 Dose: 0.4 mg Documented by: Discharge Diet: Low fat/ Low Cholesterol Discharge Activity: Return to Normal Activity Weight Bearing Status: Weight bearing as tolerated Call your doctor if you observe: Fever of 101 or Higher, Shortness of breath, Fainting spells, Swelling in the ankles Home Medications: Medications to take at Discharge Acetaminophen [Tylenol] 650 mg PO BID 01/27/20 Apixaban [Eliquis] 5 mg PO BID 01/27/20 Budesonide [Pulmicort] 0.5 mg IH BID 01/27/20 Calcium Carbonate/Vitamin D3 [Calcium 600-Vit D3 200 Tablet] 1 tab PO DAILY 01/27/20 Carvedilol 6.25 mg PO BID 01/27/20 Diltiazem HCl [Diltiazem 24Hr ER] 180 mg PO DAILY 01/27/20 Ergocalciferol [Vitamin D] 50,000 unit PO Q7D 01/27/20 Ferrous Sulfate 325 mg PO BID 01/27/20 Furosemide [Lasix] 80 mg PO BID 01/27/20 Guaifenesin [Mucinex] 1,200 mg PO BID 01/27/20 Potassium Chloride [K-Dur] 40 meq PO BID 01/27/20 Tamsulosin HCl [Flomax] 0.4 mg PO BID 01/27/20 Acetaminophen [Tylenol] 650 mg PO TID PRN 01/28/20 Albuterol Sulfate HFA 2 puff INHALATION Q4H PRN 01/28/20 Atorvastatin Calcium [Lipitor] 40 mg PO DAILY 01/28/20 Bisacodyl 10 mg RC DAILY PRN 01/28/20 Calcium Carbonate [Tums] 3 tab PO Q2H PRN 01/28/20 Cod Liver/Vit A,D/Petrolat,Wht 1 tab PO DAILY 01/28/20 Docusate Sodium [Colace] 100 mg PO DAILY 01/28/20 Losartan Potassium 50 mg PO QHS 01/28/20 Magnesium Oxide 400 400 mg PO DAILY 01/28/20 Milk Of Magnesia 30 ml PO BID PRN 01/28/20 Multivitamin 1 tab PO DAILY 01/28/20 Oxycodone [Oxyir] 5 mg PO Q4H PRN PRN 01/28/20 Oxycodone [Oxyir] 5 mg PO QHS 01/28/20 Polyethylene Glycol 3350 [Miralax] 17 gm PO DAILY 01/28/20 Senna-S 8.6-50 mg Tablet 50 mg PO DAILY 01/28/20 Sertraline HCl [Zoloft] 25 mg PO QHS 01/28/20 Ciprofloxacin HCl 500 mg PO BID #10 tab 01/31/20 Following Prescriptions Were Given to Patient: Ciprofloxacin HCl 500 mg PO BID #10 tab Prescription Printed Primary Care Physician: Mario Lwoe MD [Primary Care Provider] - Please follow up with your Primary Care Physician in: 1-2 weeks Disposition: Longterm facility Minutes spent on discharge:: 40 Patient Condition:: Stable Medical Necessity - Tobacco Use Smoking Status: Never smoker Meaningful Use Info Meaningful Use Diagnoses (Choose all that apply): None applicable Inpatient E&M: 79175 Disch Hosp
[2020-01-31] MEDS: 0.9% Saline Lock 10 ML Syringe IV (12:40)
--- NOTE | 2020-01-31 13:08 | CASEMGMT ---
Social Work Pt ready for discharge today. Phone call placed to Nohelia at [facility]. Nohelia stating they are now able to accept pt back to facility and Piedad Bradford is facility customer contact sales associate. KIM spoke with Piedad who confirms pt can return today. Transportation arranged for 5:00 picking machine operator by [facility]. Orders faxed to facility and Piedad notified of time of transport. KIM spoke with pt Delmy and informed of discharge today. Delmy is understanding and agreeable. Nursing made aware. MADHU Zhang
--- NOTE | 2020-01-31 15:42 | PN.ID_ITS ---
Patient Problems: Active and Suspected Problems (Last Reviewed 01/22/20 @ 10:53 by Mariza Chase) Acute hypoxic respiratory insufficiency (Acute) COVID-19 (Acute) Dyspnea (Acute) Frequent falls (Acute) Subjective: Feeling better, no fever - Physical Exam Vitals/I&O's: Vital Signs Temp Pulse Resp BP Pulse Ox 97.6 F L 63 18 153/115 H 94 01/31/20 14:29 01/31/20 15:00 01/31/20 14:29 01/31/20 14:29 01/31/20 14:29 Oxygen Flow Rate (L/min) [At 2 REST on Room Air] Oxygen Flow Rate (L/min) 2 Oxygen Delivery Method Nasal Cannula Weight: 142.2 kg Body Mass Index (BMI) 44.1 Finger Stick Blood Glucose 180 Intake and Output for Last 24 Hours 01/29/20 01/30/20 01/31/20 23:59 23:59 23:59 Intake Total 2060 / 2360 1150 / 1150 610 / 610 Output Total 1350 / 1350 Balance 710 / 1010 1150 / 1150 610 / 610 General: Alert, Cooperative, No apparent distress Lungs: Clear to auscultation, Normal air movement Cardiovascular: Regular rate, Regular Rhythm Abdomen: Soft, Non Tender, Non-Distended Skin: No rashes Microbiology Past 72 Hours 01/27/20 21:13 Blood Culture (Wb) - Left Wrist Blood Culture - Preliminary No growth in 48 hours. 01/27/20 20:15 Blood Culture (Wb) - Anticubital Right Blood Culture - Preliminary No growth in 48 hours. 01/27/20 21:15 Urine, Clean Catch Urine Culture - Final Pseudomonas aeroginosa Laboratory Results 01/31/20 07:48: WBC 3.7 L, RBC 5.68, Hgb 15.0, Hct 48.9, MCV 86.1, MCH 26.4 L, MCHC 30.7 L, RDW Std Deviation 52.9 H, RDW Coeff of Germán 16.9 H, Plt Count 107 L, MPV 10.4, Immature Gran % (Auto) 0.300, Neut % (Auto) 76.8 H, Lymph % (Auto) 15.6 L, [place] % (Auto) 7.3, Eos % (Auto) 0.0, Baso % (Auto) 0.0, Absolute Neuts (auto) 2.9, Absolute Lymphs (auto) 0.58 L, Nucleated RBC % 0, Differential Comment SCANNED, Diff Path Review August01/31/20 07:48: Sodium 140, Potassium 3.7, Chloride 102, Carbon Dioxide 33.0 H, Anion Gap 5, BUN 28 H, Creatinine 0.74, Estim Creat Clear Calc 58.81, Est GFR (MDRD) Af Amer 131, Est GFR (MDRD) Non-Af 108, BUN/Creatinine Ratio 38.0 H, Glucose 192 H, Calcium 7.9 L Current Medications Acetaminophen (Acetaminophen 325 Mg Tablet) 650 mg PO BID [facility] Last Admin: 01/31/20 09:01 Dose: 650 mg Documented by: Apixaban (Apixaban 5 Mg Tablet) 5 mg PO BID [facility] Last Admin: 01/31/20 09:01 Dose: 5 mg Documented by: Atorvastatin Calcium (Atorvastatin Calcium 40 Mg Tablet) 40 mg PO QHS [facility] Last Admin: 01/30/20 20:55 Dose: 40 mg Documented by: Calamine/Phenol (Menthol/Lanolin/Calamine/Znox 113 Gm Tube) 1 applic TOPICAL BID [facility]; Protocol Last Admin: 01/31/20 09:01 Dose: 1 applicatio Documented by: Calcium/Vitamin D (Calcium Carb/Vitamin D 1 Tablet Tablet) 1 tablet PO DAILY [facility] Last Admin: 01/31/20 09:00 Dose: 1 tablet Documented by: Carvedilol (Carvedilol 6.25 Mg Tablet) 6.25 mg PO BID [facility] Last Admin: 01/31/20 09:00 Dose: 6.25 mg Documented by: Ciprofloxacin HCl (Ciprofloxacin 500 Mg Tablet) 500 mg PO BID [facility] Last Admin: 01/31/20 09:00 Dose: 500 mg Documented by: Dexamethasone (Dexamethasone 4 Mg Tablet) 6 mg PO DAILY@0800 [facility] Last Admin: 01/31/20 09:00 Dose: 6 mg Documented by: Diltiazem HCl (Diltiazem Cd 180 Mg Capsule) 180 mg PO DAILY [facility] Last Admin: 01/31/20 09:01 Dose: 180 mg Documented by: Furosemide (Furosemide 80 Mg Tablet) 80 mg PO BID@1000,1700 [facility] Last Admin: 01/31/20 09:01 Dose: 80 mg Documented by: Guaifenesin (Guaifenesin 1,200 Mg Tablet) 1,200 mg PO BID [facility] Last Admin: 01/31/20 09:00 Dose: 1,200 mg Documented by: Remdesivir (Investigational) (100 mg/ Sodium Chloride) 250 mls @ 125 mls/hr IV DAILY [facility]; Protocol Stop: 02/01/20 11:59 Last Infusion: 01/31/20 12:15 Dose: Infused Documented by: Losartan Potassium (Losartan Potassium 50 Mg Tablet) 50 mg PO QHS [facility] Last Admin: 01/30/20 20:55 Dose: 50 mg Documented by: Potassium Chloride (Potassium Chloride 20 Meq Tablet) 40 meq PO BIDCM [facility] Last Admin: 01/31/20 09:00 Dose: 40 meq Documented by: Sertraline HCl (Sertraline 50 Mg Tablet) 25 mg PO QHS [facility] Last Admin: 01/30/20 20:56 Dose: 25 mg Documented by: Sodium Chloride (0.9% Saline Lock 10 Ml Syringe) 10 - 40 ml IV UD PRN PRN Reason: SALINE FLUSH Last Admin: 01/31/20 12:40 Dose: 10 ml Documented by: Tamsulosin HCl (Tamsulosin Hcl 0.4 Mg Capsule) 0.4 mg PO DAILY [facility] Last Admin: 01/31/20 09:00 Dose: 0.4 mg Documented by: Medical Necessity - Tobacco Use Smoking Status: Never smoker Route of nutrition/ use of supplements: [] Nutritional Intake: [] IV Site: [] Crews Catheter: [] - Assessment/Plan Antibiotics: [] Assessment/Plan: [] Active and Suspected Problems (Last Reviewed 01/22/20 @ 10:53 by Mariza Chase) Acute hypoxic respiratory insufficiency (Acute) COVID-19 (Acute) Dyspnea (Acute) Frequent falls (Acute) covid with acute hypoxic resp failure - steroids, anticoag, remdesivir, and plasma. D-dimer was 1.9. No PE on CT. Has h/o MRSA. Overall low suspicion for bacterial pneumonia based on symptoms and imaging. Much improved, cont po cipro for short course for PsA in [place]. Plan on one more day of abx. Will follow as needed
[2020-02-03 13:49] LABS: Pathologist Review Reviewed
== END 2020-01-31 17:20 | disposition skilled nursing facility (03) | DRG 177 ==
LOC: ED 21:39 → ICU 23:44 → MS2 01-30 09:46
PROVIDERS: Internal Medicine Critical Care Medicine; Internal Medicine Infectious Disease; Admitting Provider Family Medicine; Emergency Provider Emergency Medicine; PCP Orthopaedic Surgery; Referring Provider Family Medicine; Visit Provider Student in an Organized Health Care Education/Training Program
DX: U07.1 COVID-19 (principal); J12.89 Other viral pneumonia; J96.01 Acute respiratory failure with hypoxia; Z68.41 Body mass index [BMI] 40.0-44.9, adult; I48.92 Unspecified atrial flutter; J90 Pleural effusion, not elsewhere classified; I48.20 Chronic atrial fibrillation, unspecified; N39.0 Urinary tract infection, site not specified; B96.5 Pseudomonas (aeruginosa) (mallei) (pseudomallei) as the cause of diseases classified elsewhere; R29.6 Repeated falls; M19.90 Unspecified osteoarthritis, unspecified site; G47.33 Obstructive sleep apnea (adult) (pediatric); I12.9 Hypertensive chronic kidney disease with stage 1 through stage 4 chronic kidney disease, or unspecified chronic kidney disease; E11.22 Type 2 diabetes mellitus with diabetic chronic kidney disease; N18.2 Chronic kidney disease, stage 2 (mild); E11.36 Type 2 diabetes mellitus with diabetic cataract; H26.9 Unspecified cataract; I25.10 Atherosclerotic heart disease of native coronary artery without angina pectoris; K21.9 Gastro-esophageal reflux disease without esophagitis; R53.81 Other malaise; E66.01 Morbid (severe) obesity due to excess calories; Z96.643 Presence of artificial hip joint, bilateral; Z96.653 Presence of artificial knee joint, bilateral; Z79.01 Long term (current) use of anticoagulants; Z79.899 Other long term (current) drug therapy; Z86.14 Personal history of Methicillin resistant Staphylococcus aureus infection; Z86.73 Personal history of transient ischemic attack (TIA), and cerebral infarction without residual deficits
CPT/HCPCS: 36415; 36600; 51702; 71045; 71275; 80048; 80053; 81001; 82803; 83605; 83735; 83880; 84075; 84100; 84145; 84484; 85025; 85027; 85379; 85610; 85730; 86850; 86900; 86901; 87040; 87077; 87086; 87088; 87184; 87186; 93005; 94003; 94660; 97110; 97162; 97166; 97530; 97535; 99251; 99285; J7040; J7050; Q9967; A4216; G0463

== ENCOUNTER 2020-02-29 11:58 | Emergency (ER) | payer MEDICARE, OTHER, SELFPAY ==
[2017-01-12 13:56] VITALS: BMI 46.7
[2020-01-28 00:47] VITALS: BMI 44.1
[2020-02-29 12:00] VITALS: BP 90/62; PULSE 79; RESP 18; TEMP 36.4; O2SAT 85; BMI 42.0
[2020-02-29 12:04] VITALS: O2SAT 95
--- NOTE | 2020-02-29 12:48 | ED.VISSUMM ---
- ER Visit Summary Date of Service: 02/29/20 Chief Complaint: Fall History of Present Illness: The patient is a 84 M who presents after a fall out of his recliner today. Patient states he has had pain in his left thigh. Patient describes the pain is sharp. Patient states the pain is worse with any movement. Patient denies any paresthesias or weakness. Patient denies any head injury or loss of consciousness. Patient denies any other injuries. Patient was recently diagnosed with COVID-19 as well. Physical Examination: Vital signs are stable. Patient is afebrile. Patient is in no acute distress. Oral mucosa is pink and moist. Neck is supple. Trachea is midline. There is no JVD. Heart was regular rate and rhythm. Lungs are clear and equal bilaterally. Abdomen is soft. Bowel sounds are normal. There is no tenderness. Musculoskeletal exam reveals tenderness over the left distal thigh. There is edema. There is no obvious deformity. Range of motion of the left lower extremity was limited in all motion secondary to pain. Pedal pulses are equal bilaterally. Sensation was intact to light touch in all digits. Test Results: X-rays of the left femur were obtained. There were 5 views including AP and lateral views of the distal and proximal femur. On my interpretation, there is a spiral oblique fracture of the distal femoral shaft. There are total hip prosthesis and total knee prosthesis noted. The fracture is between the 2 prosthetics. There is some mild displacement. Staff reported that the [facility] staff pulled on his lower leg and straighten his lower leg. Because of this, 4 views of the tibia and fibula were obtained. On my interpretation, there is no acute fracture noted. Radiologist also read the femur and tibia-fibula x-rays and agreed. Since the patient had a positive COVID-19 test on January 23, this was repeated. CBC and comprehensive metabolic profile were essentially within normal limits. Emergency Department Course and Treatment: Patient was given a dose of morphine here. Patient was given IV fluids. Case was discussed with Dr. Alba from orthopedics. He recommended transferring the patient because of the prior total hip and total knee replacements. Case was discussed with Dr. Billings from [facility]. He accepted the patient to be transferred there. Patient understood and was agreeable with the plan. All questions were answered. Disposition: Transfer to [facility]. Impression: 1. Left distal femur fracture This note was generated with Dragon dictation software. It may contain incorrect words, spelling, and punctuation that were not noted in review of the chart prior to signing ED Disposition - Plan for ED Patient: Disposition: [facility] Diagnosis: Closed fracture of left distal femur Referrals: Mario Lowe MD [Primary Care Provider] -
[2020-02-29] MEDS: 0.9% Normal Saline 1,000 ML 1000 ML IV (12:56)
[2020-02-29] MEDS: Morphine 4 MG/ML Syringe IV ×2 (12:57→15:52)
[2020-02-29 13:10] LABS: Absolute Lymphocyte Count 1.06 X10^3/uL (0.83-4.51); Absolute Neutrophil Count 5.3 X10^3/uL (2.0-7.7); Basophil# 0.03 X10^3/uL; Basophil% 0.4 % (0-1); Eosinophil# 0.19 X10^3/uL; Eosinophils% 2.6 % (0-5); Hematocrit 45.1 % (40-54); Hemoglobin 13.7 g/dL (13.0-16.5); Lymphocyte # 1.06 X10^3/ul (4.0); Lymphocyte % 14.6 % (19-41); Mean Corp Hgb Conc 30.4 g/dL (32-36); Mean Corpuscular Volume 88.8 fL (80-94); Mean Platelet Vol. 10.1 fl (6.2-12.0); Monocyte# 0.62 X10^3/uL; Monocyte% 8.6 % (0-10); NRBC Flagged by Analyzer 0 % (0-5); Neutrophil # 5.28 X10^3/uL (2.7-7.7); Platelet Count 230 K/mm3 (150-450); Red Blood Count 5.08 M/mm3 (4.6-6.2); White Blood Count 7.2 K/mm3 (4.4-11.0)
--- NOTE | 2020-02-29 13:21 | RAD_ITS ---
STUDY: X-RAY - LEFT FEMUR REASON FOR STUDY: Male, 84 years old. had fall today out of recliner, lives at [facility]- deformity to [facility]. 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 pt was discharger 01/30 from [facility] after being admitted with COVID. TECHNIQUE: 2 view(s) of the femur. COMPARISON: August FINDINGS: There is a mildly angulated fracture of the distal third of the femur, outside of and not involving the shaft of the hip replacement. There is an intact located knee replacement, not directly involved with the fracture. RAD/Femur Min 2 Views IMPRESSION: Mildly angulated distal third femoral diaphyseal fracture. Electronically Signed: Arnold Valdez, at 13:59 EST Tel , Service support ,
[2020-02-29 13:28] LABS: ALB/GLOB Ratio 0.5 RATIO (0.9-2.4); AST(SGOT) 16 U/L (15-37); Alanine Aminotransfer ALT/SGPT 23 U/L (16-61); Albumin, Serum 2.3 g/dL (3.2-5.0); Alkaline Phosphatase 161 U/L (45-117); Anion Gap 4 (5-15); BUN 41 mg/dL (7-18); BUN/Creat Ratio 42.2 RATIO (10-20); Calcium,Total 8.2 mg/dL (8.5-10.1); Chloride 103 mmol/L (98-107); Creatinine, Serum 0.97 mg/dL (0.70-1.30); EST Glomerular Filtration Rate 79 mL/min (>60); Est Glom Filt Rate - Afr Amer 95 mL/min (>60); Estimated Creatinine Clearance 60.62 ml/min; Globulin 4.4 g/dL (2.2-4.2); Glucose 194 mg/dL (74-106); Potassium 3.4 mmol/L (3.5-5.1); Protein, Total 6.7 g/dL (6.4-8.2); Sodium Level 140 mmol/L (136-145)
--- NOTE | 2020-02-29 13:30 | ED.RN ---
spoke with daughter, Celeste for pt update.
--- NOTE | 2020-02-29 14:30 | RAD_ITS ---
STUDY: X-RAY - LEFT TIBIA AND FIBULA REASON FOR EXAM: Male, 84 years old. had fall today out of recliner, lives at [facility]- deformity to [facility]. 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 pt was discharger 01/30 from [facility] after being admitted with COVID. TECHNIQUE: 2 view(s) of the tibia and fibula were obtained. COMPARISON: None. FINDINGS: There is no acute fracture. The knee is located with knee arthroplasty. There is a remote healed proximal fibular fracture. Mineralization is diffusely decreased. There is additional regional demineralization of the ankle and hindfoot and midfoot. Soft tissues are unremarkable. RAD/Tibia & Fibula 2 Views IMPRESSION: No acute osseous injury. Osteoporosis. Knee replacement. Electronically Signed: Arnold Valdez, at 15:01 EST Tel , Service support ,
[2020-02-29 15:20] VITALS: BP 116/80; PULSE 77; RESP 18; O2SAT 91
--- NOTE | 2020-02-29 15:22 | ED.RN ---
spoke with daughter, Celeste for pt update
[2020-02-29 15:56] VITALS: BP 114/85; PULSE 84; RESP 18; O2SAT 92
[2020-02-29 17:00] VITALS: BP 104/82; PULSE 80; RESP 18; O2SAT 93
--- NOTE | 2020-02-29 17:02 | ED.RN ---
updated eric Alonso's daughter on transfer. daughter will call [facility]. [facility] also updated on pt transfer.
[2020-02-29 17:21] LABS: Probe Check PASS; Specimen Processing Control PASS
== END 2020-02-29 17:39 | disposition short-term general hospital (02) ==
PROVIDERS: Emergency Provider Emergency Medicine; PCP Orthopaedic Surgery
DX: S72.342A Displaced spiral fracture of shaft of left femur, initial encounter for closed fracture (principal); S72.332A Displaced oblique fracture of shaft of left femur, initial encounter for closed fracture; W07.XXXA Fall from chair, initial encounter; Y93.9 Activity, unspecified; Y92.9 Unspecified place or not applicable; Y99.9 Unspecified external cause status; U07.1 COVID-19; I10 Essential (primary) hypertension; E11.9 Type 2 diabetes mellitus without complications; K21.9 Gastro-esophageal reflux disease without esophagitis; N40.0 Benign prostatic hyperplasia without lower urinary tract symptoms; D64.9 Anemia, unspecified; Z96.643 Presence of artificial hip joint, bilateral; Z96.652 Presence of left artificial knee joint; Z79.01 Long term (current) use of anticoagulants; Z79.899 Other long term (current) drug therapy
CPT/HCPCS: 73552; 73590; 80053; 85025; 87635; 96361; 96374; 96376; 99285; A4216; U0002